=== PATIENT | female | born 1960 | race Caucasian/White ===

== ENCOUNTER → 2016-03-01 | Outpatient (CLI) | payer OTHER ==
--- NOTE | 2016-03-01 15:40 | NM ---
EXAMINATION TYPE: NM bone scan whole body, NM bone SPECT DATE OF EXAM: 03/01/2016 3:26 PM COMPARISON: NONE HISTORY: M54.5 low back pain Delayed whole-body scanning was performed following the injection of 27.4 mCi Tc 99m MDP. Images acq uired 3.5 hours post injection. On SPECT imaging was performed in the axial sagittal and coronal plan es. FINDINGS: There is intense uptake noted to involve the T9 vertebral segment which may reflect a compression fra cture. Underlying pathologic component is not excluded. Mild increased uptake is seen at the anterior -inferior endplate of L4 felt to reflect relatively recent compression fracture. There is also bilate ral focal uptake involving the pars interarticularis bilaterally suggesting bilateral spondylolysis. No additional areas of abnormal uptake seen. IMPRESSION: Increased uptake at 2 sites including T9 and L4 as well as bilateral L4 pars interarticularis uptake.
== END | disposition home or self-care (01) ==
LOC: RADNMMAIN 10:38
PROVIDERS: ATTEND Orthopaedic Surgery Orthopaedic Surgery of the Spine
DX: M51.16 Intervertebral disc disorders with radiculopathy, lumbar region (principal); M47.26 Other spondylosis with radiculopathy, lumbar region; M54.5 Low back pain
CPT/HCPCS: 78306; 78320; A9503

== ENCOUNTER → 2016-05-29 | Outpatient (CLI) | payer OTHER, MEDICARE ==
[2016-05-29 10:57] LABS: EKG EKG PERFORMED
[2016-05-29 11:53] LABS: Appearance,Urine Clear (Clear); Bilirubin,Urine Negative (Negative); Glucose,Urine (UA) Negative (Negative); Ketones,Urine Negative (Negative); Leukocyte Esterase,Urine Negative (Negative); Nitrite,Urine Negative (Negative); Protein,Urine Negative (Negative); Specific Gravity,Urine 1.002 (1.001-1.035); UA Billing (MACRO vs. MICRO) CHEM; Urobilinogen,Urine <2.0 mg/dL (<2.0)
[2016-05-29 12:00] LABS: Basophils # (A) 0.1 k/uL (0-0.2); Basophils % (A) 1 %; CH 29.1; CHCM 32.3; Eosinophils # (A) 0.6 k/uL (0-0.7); Eosinophils % (A) 8 %; HCT 46.5 % (34.0-46.0); HGB 15.2 gm/dL (11.4-16.0); Luc # (Auto) 0.17; Luc % (Auto) 3; Lymphocytes # (A) 2.1 k/uL (1.0-4.8); Lymphocytes % (A) 30 %; MCH 29.6 pg (25.0-35.0); MCHC 32.7 g/dL (31.0-37.0); MCV 90.5 fL (80.0-100.0); Mean Platelet Volume 6.8; Monocytes # (A) 0.3 k/uL (0-1.0); Monocytes % (A) 5 %; Neutrophils # (A) 3.7 k/uL (1.3-7.7); Neutrophils % (A) 53 %; RBC 5.14 m/uL (3.80-5.40); RDW 13.4 % (11.5-15.5); WBC 6.9 k/uL (3.8-10.6); WBC (Perox) 7.44
[2016-05-29 12:13] LABS: ALT 26 U/L (9-52); AST 22 U/L (14-36); Alkaline Phosphatase 86 U/L (38-126); Anion Gap 13 mmol/L; Blood Urea Nitrogen 14 mg/dL (7-17); Calcium 9.5 mg/dL (8.4-10.2); Carbon Dioxide 32 mmol/L (22-30); Chloride 100 mmol/L (98-107); Glucose 91 mg/dL (74-99); Non-African American GFR(MDRD) >60 (>60 ml/min/1.73 sqM); Potassium 3.8 mmol/L (3.5-5.1); Sodium 145 mmol/L (137-145); Total Bilirubin 0.7 mg/dL (0.2-1.3); Total Protein 8.1 g/dL (6.3-8.2)
--- NOTE | 2016-05-29 12:21 | XR ---
EXAMINATION TYPE: XR chest 2V DATE OF EXAM: 05/29/2016 11:25 AM COMPARISON: Chest x-ray August 02, 2015. HISTORY: Positive PPD skin test. TECHNIQUE: Frontal and lateral views of the chest are obtained. FINDINGS: Underlying emphysematous change is felt present. There is no focal air space opacity, pleu ral effusion, or pneumothorax seen. The cardiac silhouette size is within normal limits. The osseo us structures are intact. IMPRESSION: No acute cardiopulmonary process. No significant change from prior.
[2016-05-29 12:39] LABS: Partial Thromboplastin Time 25.3 sec (22.0-30.0)
== END | disposition home or self-care (01) ==
LOC: LABPAT 10:42
PROVIDERS: ATTEND Orthopaedic Surgery Orthopaedic Surgery of the Spine
DX: Z01.818 Encounter for other preprocedural examination (principal); R00.0 Tachycardia, unspecified; R94.31 Abnormal electrocardiogram [ECG] [EKG]; Z79.01 Long term (current) use of anticoagulants
CPT/HCPCS: 36415; 71020; 80053; 81003; 85025; 85610; 85730; 87070; 93005

== ENCOUNTER 2016-06-05 06:55 | Inpatient (IN) | payer OTHER ==
[2016-05-30 16:06] VITALS: BMI 29.7
[~2016-06-05 06:55] MED LIST: BACITRACIN 50,000 UNIT, POLYMYXIN B 500,000 UNIT in SODIUM CHLORIDE 0.9% IRRIGATIO 1,00... IRRIGATION ONE; DEXAMETHASONE SOD PHOSPHATE 10 MG/ML 1 ML VIAL IV ONE; HYDROmorphone 1 MG/ML 1 ML SYRINGE IVP PRN; LIDOCAINE 1% 20 ML VIAL (10MG/ML) FOR IV START INTRADERMA PRN; MIDAZOLAM 2 MG/2 ML VIAL IV PRN; ONDANSETRON 4 MG/2 ML VIAL IVP ONE; Pre Op ABX Message 1 EACH MISC MISCELLANE ONE; SCOPOLAMINE 1.5MG/72HR PATCH TRANSDERM ONE
[2016-06-05] MEDS: LACTATED RINGERS 1,000 ML IV SCH (07:24)
[2016-06-05] MEDS ORDERED: HYDROmorphone (PF) 1 MG/ML ONE (08:38)
[2016-06-05] MEDS ORDERED: SUCCINYLCHOLINE CHLORIDE 100 MG/5 ML SYR IV ONE (08:38)
[2016-06-05] MEDS ORDERED: THROMBIN (BOVINE) 5,000 UNIT VIAL TOPICAL ONE (08:38)
[2016-06-05] MEDS ORDERED: MIDAZOLAM 2 MG/2 ML VIAL ONE (08:38)
[2016-06-05] MEDS ORDERED: LIDOCAINE 0.5%-EPI 1:200,000 50 ML VIAL SQ ONE ×2 (08:38)
[2016-06-05] MEDS ORDERED: PHENYLEPHRINE-0.9% NACL SYG 1 MG/10 ML SYRINGE ONE (08:38)
[2016-06-05] MEDS ORDERED: PROPOFOL 10 MG/ML 20 ML VIAL IV ONE (08:38)
[2016-06-05] MEDS ORDERED: LIDOCAINE 1% INJ 10MG/ML (20 ML MDV) ONE (08:38)
[2016-06-05] MEDS ORDERED: fentaNYL (PF) 50 MCG/ML 2 ML AMP ONE (08:38)
[2016-06-05] MEDS ORDERED: GELATIN SPONGE,ABSORB (LARGE) 1 EACH SPONGE TOPICAL ONE (08:38)
[2016-06-05] MEDS ORDERED: SODIUM CHLORIDE 0.9% 100 ML with CLINDAMYCIN 600 MG IV ONE ×2 (08:55)
[2016-06-05] MEDS ORDERED: BUPIVACAINE LIPOSOME/PF 1.3% 20 ML, BUPIVACAIN-EPI 0.5%-1:200,000 25 ML, SODIUM CHLORID... MISCELLANE ONE ×3 (09:37)
[2016-06-05] MEDS ORDERED: LACTATED RINGERS 1,000 ML IV ONE ×3 (10:01→11:29)
[2016-06-05] MEDS ORDERED: ONDANSETRON 4 MG/2 ML VIAL IVP PRN (12:08)
[2016-06-05] MEDS ORDERED: HYDROmorphone 1 MG/ML 1 ML SYRINGE IVP PRN ×2 (12:08)
[2016-06-05] MEDS ORDERED: BENZOCAINE/MENTHOL LOZENG 1 EACH LOZENGE MUCOUS MEM PRN (12:08)
[2016-06-05] MEDS ORDERED: DIAZEPAM 5 MG TAB PO PRN (12:08)
[2016-06-05] MEDS ORDERED: HYDROcodone/APAP 5-325MG 1 EACH TAB PO PRN (12:08)
--- NOTE | 2016-06-05 12:13 | FL ---
Fluoroscopy History: Lumbar laminectomy lumbar laminectomy 2:30 min fluoro time For paper images are submitted which demonstrate changes of lumbar laminectomy at L4-5. Pedicular scr ews are in place. Intervertebral body spacer is noted.
--- NOTE | 2016-06-05 12:16 | P.OP ---
Date of Procedure: 06/05/16 Preoperative Diagnosis: Spondylolisthesis L4 5, spinal stenosis L4 5, lower extremity radiculopathy Postoperative Diagnosis: Same Anesthesia: GETA Pathology: none sent Condition: stable Disposition: PACU Description of Procedure: DESCRIPTION OF PROCEDURE(S): BRIEF OPERATIVE NOTE Preoperative Diagnosis: Spinal stenosis L4 5, spondylolisthesis L4 5, radiculopathy Postoperative Diagnosis: Same Procedure: Laminectomy and decompression with foraminotomy and facetectomy minimally invasive L4 5 Minimally invasive Posterior lateral decompression and fusion L4 5 Minimally invasive Transforaminal lumbar interbody fusion for a 360 fusion L4 5 Discectomy for decompression L4 5 Placement of interbody graft L4 5 Bone marrow aspiration through a separate fascial incision from the left iliac crest with the bone marrow aspirate device Local autogenous bone grafting Use of bone graft extenders Surgeon: Dr. Laura Tool And Machine Maintainer: Stephen Conroy is present throughout the entire the case persistence during positioning, dissection, exposure, visualization, and all crucial elements of the case as well as closure. Anesthesia: General anesthesia Estimated blood loss: Approximately 200 mL Complications: None apparent Components implanted: K2M minimally invasive [place] screw system with 4 screws measuring 6.5 x 45, 2 rods one [place] interbody cage and 1 osteal amp cancellus bone sponge and 10 mL cancellus osteal amp to supplemental local autogenous bone graft and autogenous bone marrow aspirate Disposition: To recovery room in good stable condition. OPERATIVE INDICATIONS The patient has had long-standing issues in their lower back and lower extremities. The patient has been through conservative treatment. She is found have spondylolisthesis and stenosis at L4 5 which correlated well with her symptoms. She is not having any significant benefit despite aggressive conservative care. Her symptoms were coming debilitating for her. We discussed various treatment options including surgery, and the patient wishes to proceed with surgery We discussed the risk, patient's alternatives and benefits of surgery including but not limited to, risk of bleeding risk of infection, risk of need for further surgery, risk of decreased, loss of motion, muscle function, malunion nonunion, hardware failure, nerve damage, paralysis, heart attack, blindness and . OPERATIVE SUMMARY After discussing all the risks, patient alternatives and benefits at length, the patient elected to proceed with surgical intervention, signed informed consent, and presented for their procedure. The patient was seen and examined in the preoperative holding area and the surgical site was marked. The patient was given antibiotics and brought to the operating room. The patient was sedated and intubated by anesthesia in standard fashion. The patient was positioned on to the operating room table in a prone position on the appropriate frame which was well-padded and well molded. We were careful to pad any bony prominences and pressure points. We were careful to maintain the patient's cervical spine and good neutral alignment and position throughout. The patient was prepped and draped in a normal standard fashion. An appropriate timeout and keystone protocol performed. We were able to proceed with the surgery. The local wound area was infiltrated with local anesthetic. I was able utilize C-arm guidance to establish appropriate position over the pedicles bilaterally at the appropriate levels at L4 5. With the appropriate levels confirmed was able to make small stab incisions over the appropriate pedicle sites bilaterally. Utilizing C-arm in his house able to establish a Jamshidi needle over the lateral aspect of the pedicle and advanced the trocar into the pedicle being careful not to breech superiorly inferiorly medially or laterally. Position was confirmed regularly with AP and lateral images on C- arm. I was able to establish the trocar into the pedicle appropriately into the posterior aspect of the vertebral body bilaterally at the appropriate levels. This was done at each of the pedicle positions and each of the vertebrae. I was able place the guidewire into the trocar and into the vertebral body appropriately under C-arm guidance. Dissection was taken down over the wire to the appropriate starting position for the screw placed. The appropriate length screw was chosen, threaded over the guidewire and screwed appropriately into the pedicle and vertebral body under C-arm guidance in excellent alignment and position with good bony purchase. This is done at each of the screw sites at the appropriate levels at L4 and 5 bilaterally. At the left iliac crest through a separate fascial incision I Lacy bone marrow aspirate device and performed a bone marrow aspirate to be used over the osteal amp cancellus sponge and granules. With the screws intact I extended the incision to connect the screw hole sites on the most symptomatic side on the left at L4 5. I dissected down to establish access over the pars and lamina to the base of the spinous process. I was able to expose the facet joint. The capsule the facet was taken down and showed some facet arthrosis at the joint. I was able to use a combination of curettes and Kerrison rongeurs and a high-speed drill to take down the facet joint and do a facetectomy. Partial laminectomy was also performed. I was able get excellent foraminal decompression and central decompression with undermining across midline to perform a laminectomy centrally and contralaterally. As able get good central decompression. The ligamentum flavum was taken down to further decompress centrally and at bilateral neural foramen. I was able to expose the disc space and visualize the traversing nerve root. No was made of some disc protrusion at the level causing further compression of the nerve root. I was able to establish a annulotomy at the appropriate level protecting soft tissue and neural structures. No was made of some disc desiccation at the disc. I performed a complete discectomy with accommodation of curettes and rasps and scrapers. I was able get good endplate preparation at the disc space. I sized for the appropriate size interbody spacer protecting the soft tissue and neural structures. The wound was copiously irrigated and suctioned dry. There is no evidence of any dural tear or leak. I was able to pack the disc space with local autogenous bone graft as well as a small amount of infuse which was also placed into the interbody cage itself. Protecting the soft tissue structures and neural structures I was able place the interbody cage in good alignment and good position with good fit and fill at the interbody space. His issues was confirmed with C-arm guidance. Good hemostasis maintained. There is no evidence of any dural tear or leak. The wound was irrigated and suctioned dry. With the hardware intact, intraoperative C-arm imaging was again taken which showed good alignment and position of the hardware at the appropriate levels at L4-L5. We were then able to measure, contour and place the rods and appropriate hardware bilaterally. I was able to place capcrews, tighten them down, and shear them off appropriately. The sheared portion was counted and accounted for. With this intact I was able to place the local autogenous bone graft with additional bone graft enhancer as necessary into the posterior lateral gutters over the decorticated facets at L4 5. The remainder of the infuse was placed over the facet joint on the contralateral side after taking down the facet joint capsule. With the bone graft intact, a stable construct, and good decompression at the appropriate levels, we were able to proceed with closure. Good hemostasis was maintained. There is no evidence of dural tear or leak. The fascia was closed for a watertight closure. he subcuticular tissue was closed with absorbable suture. The wound was cleaned and dried and dressed with the appropriate dressing. The drapes were broken down. The patient was gently rolled back onto their hospital bed being careful to maintain their cervical spine and good neutral alignment and position. They were woken up by anesthesia, extubated, and brought to the recovery room in good stable condition. The patient will be admitted to the hospital for appropriate postoperative care , medical management and monitoring. We will continue to follow them closely about the postoperative course.
[2016-06-05] MEDS ORDERED: ALBUTEROL NEBULIZED 2.5 MG/3 ML INHALATION PRN (12:30)
[2016-06-05] MEDS ORDERED: ALPRAZolam 0.5 MG TAB PO PRN (14:31)
[2016-06-05] MEDS: HYDROcodone/APAP 5-325MG 1 EACH TAB PO PRN ×2 (14:38→19:31)
--- NOTE | 2016-06-05 14:48 | P.HPIM ---
History of Present Illness H&P Date: 06/05/16 56-year-old female postoperative from laminectomy and decompression L4 [address] Laura[address] Patient has history of iron deficiency anemia asthma stable GERD has Blanca procedure hypothyroidism hyperparathyroidism patient resting in bed right now pain free nurse called regarding hypotension has corrected with fluid Review of Systems Musculoskeletal: Reports low back pain Past Medical History Past Medical History: COPD, Osteoarthritis (OA), Thyroid Disorder Additional Past Medical History / Comment(s): SPINAL STENOSIS. IODINE TX TO THYROID. History of Any Multi-Drug Resistant Organisms: None Reported Past Surgical History: Hysterectomy, Joint Replacement, Orthopedic Surgery Additional Past Surgical History / Comment(s): Sinus Surgery. LT Hip Replacement, Bilat Knee Relacement. Partial Hyst. Past Anesthesia/Blood Transfusion Reactions: No Reported Reaction, Motion Sickness Past Psychological History: ADD/ADHD, Anxiety, Depression Smoking Status: Former smoker Past Alcohol Use History: Rare Additional Past Alcohol Use History / Comment(s): SMOKED 10 YEARS, 1/2 PPD, QUIT 7 WKS AGO Past Drug Use History: None Reported - Past Family History Father Family Medical History: Cancer Mother Family Medical History: No Reported History Medications and Allergies Home Medications Medication Instructions Recorded Confirmed Type Cholecalciferol [Vitamin D3] 1,000 unit PO DAILY 09/29/13 06/05/16 History Furosemide [Furosemide] 40 mg PO DAILY 09/29/13 06/05/16 History Levocetirizine Dihydrochloride 5 mg PO DAILY 09/29/13 06/05/16 History [Xyzal] Multivitamins, Thera [Multivitamin] 1 tab PO DAILY 09/29/13 06/05/16 History Potassium Chloride [Klor-Con M10] 10 meq PO DAILY 09/29/13 06/05/16 History ALPRAZolam [Xanax] 0.5 mg PO DAILY PRN 10/03/13 06/05/16 History DULoxetine HCL [Cymbalta] 60 mg PO BID 09/12/14 06/05/16 History Fluticasone/Salmeterol [Advair 2 puff INHALATION RT-DAILY 09/12/14 06/05/16 History 250-50 Diskus] Mometasone Furoate [Nasonex Nasal 2 spr EA NOSTRIL DAILY 09/12/14 06/05/16 History [place]] Montelukast Sodium [Singulair] 10 mg PO HS 09/12/14 06/05/16 History Albuterol Sulfate [Proair Hfa] 1 - 2 puff INHALATION RT-Q6H PRN 11/25/14 History Estradiol [Estrace] 1 mg PO DAILY 12/16/14 06/05/16 History Levothyroxine Sodium [Tirosint] 150 mcg PO DAILY 12/19/14 06/05/16 History Dextroamphetamine/Amphetamine 30 mg PO BID 01/02/16 06/05/16 History [Adderall Xr] Gabapentin [Neurontin] 300 mg PO HS 01/02/16 06/05/16 History HYDROcodone/APAP 7.5-325MG [[place] 1 tab PO DAILY PRN 01/02/16 06/05/16 History 7.5-325] rOPINIRole HCL [Requip] 2 mg PO HS 01/02/16 06/05/16 History Cyclobenzaprine [Flexeril] 10 mg PO TID 05/30/16 06/05/16 History buPROPion [Wellbutrin] 100 mg PO BID 05/30/16 06/05/16 History Allergies Allergy/AdvReac Type Severity Reaction Status Date / Time peanut Allergy Severe Anaphylaxis Verified 05/30/16 15:36 NSAIDS (Non-Steroidal Allergy Unknown Nausea & Verified 01/04/16 12:50 Anti-Inflamma Vomiting, Lightheaded., Has samters Triad. aspirin Allergy Has Verified 01/04/16 12:50 Samters Triad, Nausea & Vomiting cephalexin monohydrate Allergy Rash/Hives Verified 01/04/16 12:50 [From Keflex] ibuprofen Allergy Nausea & Verified 01/04/16 12:50 Vomiting, Lightheaded., Has Samters Triad. propoxyphene napsylate Allergy Nausea & Verified 01/04/16 12:50 [From Darvocet-N 100] Vomiting yeast Allergy Severe Anaphylaxis Uncoded 05/30/16 15:36 Physical Exam Vitals: Vital Signs Temp Pulse Pulse Resp BP BP Pulse Ox 06/05/16 13:15 95 16 106/64 99 06/05/16 13:00 95 16 114/68 98 06/05/16 12:45 92 18 101/63 97 06/05/16 12:30 87 16 96/54 100 06/05/16 12:24 98.4 F 92 16 108/57 97 06/05/16 07:16 98.9 F 86 16 126/61 94 L Intake and Output 06/04/16 06/05/16 06/05/16 22:59 06:59 14:59 Intake Total 2806 Output Total 350 Balance 2456 Intake: IV 2806 Sodium Chloride 0.9% 1, 200 000 ml @ 75 mls/hr IV . [id number] [facility] Rx#:[id number] Output: Urine 150 Estimated Blood Loss 200 Other: Weight 86.183 kg Patient Weight 06/06/16 06:59 Weight 86.183 kg - Constitutional General appearance: average body habitus - EENT Eyes: PERRLA Ears: bilateral: normal - Neck Neck: normal ROM - Respiratory Respiratory: bilateral: CTA - Cardiovascular Rhythm: regular - Gastrointestinal General gastrointestinal: soft - Integumentary Integumentary: normal - Neurologic Neurologic: CNII-XII intact - Psychiatric Psychiatric: A&O x's 3, appropriate affect, intact judgment & insight Thrombosis Risk Factor Assmnt - Choose All That Apply Each Factor Represents 1 point: Abnormal pulmonary function (COPD), Age 41-60 years, Obesity (BMI >25), Oral contraceptives or hormone replacement therapy Each Risk Factor Represents 2 Points: Major surgery Each Risk Factor Represents 5 Points: Major surgery lasting over 3 hours Thrombosis Risk Factor Assessment Total Risk Factor Score: 11 Thrombosis Risk Factor Assessment Level: High Risk Assessment and Plan Plan: Assessment Spinal stenosis L4 5 post laminectomy and decompression of L4 5 History of iron deficiency anemia Asthma/COPD stable GERD history of a Blanca procedure Hypothyroidism Hyperparathyroidism Plan We'll monitor patient condition home medications ordered
[2016-06-05] MEDS: CYCLOBENZAPRINE 10 MG TAB PO SCH ×2 (15:53→20:34)
[2016-06-05] MEDS: CLINDAMYCIN 900 MG in DEXTROSE 5% IN WATER 50 ML IVPB SCH ×2 (17:11)
[2016-06-05] MEDS: DULoxetine HCL 60 MG CAPSULE.DR PO SCH (20:35)
[2016-06-05] MEDS: buPROPion 100 MG TAB PO SCH (20:35)
[2016-06-05] MEDS: GABAPENTIN 300 MG CAP PO SCH (20:35)
[2016-06-05] MEDS: MONTELUKAST 10 MG TAB PO SCH (20:35)
[2016-06-05] MEDS: SODIUM CHLORIDE 0.9% 1,000 ML IV SCH (20:36)
[2016-06-05] MEDS ORDERED: NON-FORMULARY DRUG (Dextroamphetamine/Amphetamine [Adderall Xr] 30 MG) PO SCH (21:00)
[2016-06-05] MEDS: PROAIR HFA (ALBUTEROL SULFATE) INHALATION PRN (22:25)
[2016-06-06] MEDS: CLINDAMYCIN 900 MG in DEXTROSE 5% IN WATER 50 ML IVPB SCH ×2 (00:09)
[2016-06-06] MEDS: SODIUM CHLORIDE 0.9% 1,000 ML IV SCH ×4 (00:13→21:02)
[2016-06-06] MEDS: HYDROcodone/APAP 5-325MG 1 EACH TAB PO PRN ×5 (02:22→18:38)
[2016-06-06] MEDS: PROAIR HFA (ALBUTEROL SULFATE) INHALATION PRN (02:23)
[2016-06-06] MEDS: TIROSINT 150 MCG PO SCH (05:20)
[2016-06-06] MEDS ORDERED: LEVOTHYROXINE 75 MCG TAB PO SCH (06:30)
[2016-06-06 07:40] LABS: Anion Gap 5 mmol/L; Blood Urea Nitrogen 7 mg/dL (7-17); Calcium 7.9 mg/dL (8.4-10.2); Carbon Dioxide 24 mmol/L (22-30); Chloride 108 mmol/L (98-107); Glucose 100 mg/dL (74-99); Non-African American GFR(MDRD) >60 (>60 ml/min/1.73 sqM); Sodium 137 mmol/L (137-145)
[2016-06-06 07:45] LABS: Basophils % (A) 0 %; CH 29.2; CHCM 32.7; Eosinophils # (A) 0.2 k/uL (0-0.7); Eosinophils % (A) 2 %; HCT 34.7 % (34.0-46.0); HDW 2.43; Luc # (Auto) 0.23; Luc % (Auto) 3; Lymphocytes # (A) 1.5 k/uL (1.0-4.8); Lymphocytes % (A) 19 %; MCH 29.9 pg (25.0-35.0); MCHC 33.3 g/dL (31.0-37.0); MCV 89.9 fL (80.0-100.0); Mean Platelet Volume 6.5; Monocytes # (A) 0.4 k/uL (0-1.0); Monocytes % (A) 6 %; Neutrophils # (A) 5.4 k/uL (1.3-7.7); Neutrophils % (A) 70 %; RBC 3.86 m/uL (3.80-5.40); RDW 13.2 % (11.5-15.5); WBC 7.8 k/uL (3.8-10.6); WBC (Perox) 8.64
[2016-06-06 07:56] LABS: HGB 11.6 gm/dL (11.4-16.0)
[2016-06-06] MEDS ORDERED: SYMBICORT 80-4.5 MCG INHALER INHALATION SCH (08:00)
[2016-06-06] MEDS ORDERED: ADVAIR INHALATION SCH (08:00)
[2016-06-06] MEDS: LACTATED RINGERS 1,000 ML IV SCH (08:25)
[2016-06-06] MEDS: DULoxetine HCL 60 MG CAPSULE.DR PO SCH ×2 (08:53→22:37)
[2016-06-06] MEDS: ESTRADIOL 1 MG TAB PO SCH (08:53)
[2016-06-06] MEDS: POTASSIUM CHLORIDE ER 10 MEQ TAB.ER.PRT PO SCH (08:53)
[2016-06-06] MEDS: CHOLECALCIFEROL 1,000 UNIT TAB PO SCH (08:53)
[2016-06-06] MEDS: buPROPion 100 MG TAB PO SCH ×2 (08:53→22:37)
[2016-06-06] MEDS: CYCLOBENZAPRINE 10 MG TAB PO SCH ×3 (08:53→22:36)
[2016-06-06] MEDS: FUROSEMIDE 40 MG TAB PO SCH (08:54)
[2016-06-06] MEDS: LORATADINE 10 MG TAB PO SCH (08:54)
[2016-06-06] MEDS: ADVAIR INHALATION SCH (09:58)
[2016-06-06] MEDS: FLUTICASONE 50MCG/SPRAY NASAL 16GM EA NOSTRIL SCH (10:41)
[2016-06-06] MEDS ORDERED: ALBUTEROL NEBULIZED 2.5 MG/3 ML INHALATION PRN (11:50)
--- NOTE | 2016-06-06 11:55 | P.PN ---
Subjective Patient sitting at bedside in chair states pain controlled. Requesting albuterol per nebulizer as then at home 4 times a day when necessary Objective - Vital Signs Vital signs: Vital Signs Temp 99.0 F 06/06/16 08:08 Pulse 94 06/06/16 08:08 Resp 16 06/06/16 08:08 BP 100/53 06/06/16 08:08 Pulse Ox 95 06/06/16 08:08 Intake & Output 06/05/16 06/06/16 06/06/16 18:59 06:59 18:59 Intake Total 2806 1750 Output Total 500 1700 Balance 2306 1750 -1700 Weight 86.183 kg Intake: IV 2806 1500 Sodium Chloride 0.9% 1, 200 1500 000 ml @ 125 mls/hr IV . Q8H [facility] Rx#:[id number] Oral 250 Output: Urine 300 1700 Uretheral (Fuentes) 1700 Estimated Blood Loss 200 Other: Voiding Method Indwelling Catheter Indwelling Catheter Indwelling Catheter - Constitutional General appearance: Present: mild distress - EENT Eyes: Present: PERRLA Ears: bilateral: normal - Neck Neck: Present: normal ROM - Respiratory Respiratory: bilateral: CTA - Cardiovascular Rhythm: regular - Gastrointestinal General gastrointestinal: Present: soft - Integumentary Integumentary: Present: normal - Neurologic Neurologic: Present: CNII-XII intact - Psychiatric Psychiatric: Present: A&O x's 3, appropriate affect, intact judgment & insight - Labs CBC & Chem 7: 06/06/16 07:07 06/06/16 07:07 Labs: Abnormal Lab Results - Last 24 Hours (Table) 06/06/16 Range/Units 07:07 Chloride 108 H (98-107) mmol/L Glucose 100 H (74-99) mg/dL Calcium 7.9 L (8.4-10.2) mg/dL Assessment and Plan Plan: Assessment Spinal stenosis L4-L5 with radiculopathy post laminectomy decompression L4 5 History of iron deficiency anemia Asthma/COPD GERD Hypothyroidism Hyperparathyroidism Plan Continue to monitor patient albuterol updrafts ordered when necessary
[2016-06-06] MEDS: MULTIVITAMINS, THERA 1 EACH TAB PO SCH (13:21)
[2016-06-06] MEDS ORDERED: MENTHOL (NICE) LOZENGE MUCOUS MEM PRN (19:57)
[2016-06-06] MEDS: MONTELUKAST 10 MG TAB PO SCH (22:37)
[2016-06-06] MEDS: GABAPENTIN 300 MG CAP PO SCH (23:16)
[2016-06-07] MEDS: HYDROcodone/APAP 5-325MG 1 EACH TAB PO PRN ×3 (02:00→12:37)
[2016-06-07] MEDS: SODIUM CHLORIDE 0.9% 1,000 ML IV SCH (04:18)
[2016-06-07] MEDS: LACTATED RINGERS 1,000 ML IV SCH (05:13)
[2016-06-07] MEDS: TIROSINT 150 MCG PO SCH ×2 (06:02→07:42)
[2016-06-07] MEDS: FLUTICASONE 50MCG/SPRAY NASAL 16GM EA NOSTRIL SCH (07:42)
[2016-06-07] MEDS: FUROSEMIDE 40 MG TAB PO SCH (07:43)
[2016-06-07] MEDS: DULoxetine HCL 60 MG CAPSULE.DR PO SCH (07:43)
[2016-06-07] MEDS: POTASSIUM CHLORIDE ER 10 MEQ TAB.ER.PRT PO SCH (07:43)
[2016-06-07] MEDS: CHOLECALCIFEROL 1,000 UNIT TAB PO SCH (07:44)
[2016-06-07] MEDS: LORATADINE 10 MG TAB PO SCH (07:44)
[2016-06-07] MEDS: CYCLOBENZAPRINE 10 MG TAB PO SCH ×2 (07:44→16:12)
[2016-06-07] MEDS: buPROPion 100 MG TAB PO SCH (07:45)
[2016-06-07] MEDS: ESTRADIOL 1 MG TAB PO SCH (07:45)
[2016-06-07 07:55] VITALS: PULSE 90
[2016-06-07] MEDS: ADVAIR INHALATION SCH (11:53)
[2016-06-07] MEDS: MULTIVITAMINS, THERA 1 EACH TAB PO SCH (12:59)
--- NOTE | 2016-06-07 13:27 | P.DS ---
Providers Date of admission: 06/05/16 06:55 Expected date of discharge: 06/07/16 Attending physician: Neena Laura Consults: 06/05/16 12:08 Consult Physician Routine Consulting Provider: Layton Fung Consult Reason/Comments: Medical management Do you want consulting provider notified?: Yes Primary care physician: Stated None - Discharge Diagnosis(es) (1) Lumbar spinal stenosis Current Visit: Yes Status: Acute (2) Spondylolisthesis, lumbar region Current Visit: Yes Status: Acute (3) Radiculopathy with lower extremity symptoms Current Visit: Yes Status: Acute (4) Arthrodesis status Current Visit: Yes Status: Acute Hospital Course: This is a pleasant 56-year-old female who presented with L4-5 spondylolisthesis and spinal stenosis with lower extremity radiculopathy who failed outpatient conservative therapy. She was admitted for a minimally invasive posterior lateral decompression and fusion with transforaminal lumbar interbody fusion at L4-5. The patient tolerated the procedure well and did well postoperatively. She states she has been able to ambulate the hallways and to the bathroom without significant difficulty. She states her pain at the surgical sites have been well-controlled. She states she has some discomfort there, but no significant pain. She states while getting in and out of bed she does experience sharp pains in the bilateral buttocks and anterior thighs. She is not experiencing these pains pains while ambulating. She states she is ready for discharge home today. Condition on day of discharge stable. Patient was cleared preoperatively for surgery by Dr. Layton Fung. Patient currently denies any nausea, vomiting, fever, or chills. Patient is eating and voiding freely without difficulty. Patient may shower Tegaderm dressings intact. Patient may remove Tegaderm dressings in 3 days and shower without a dressing at that time. Patient should refrain from driving until at least after their first follow-up appointment in the office. Patient should avoid excessive bending, lifting, and twisting; no lifting greater than 10 pounds. She'll be given a prescription for [place] 7.5 mg/325 mg 1 tab every 6 hours as needed for pain, dispensed 90 (Ninety). Should avoid anti-inflammatories over the next 6 weeks. She may resume all other home medications as prescribed. Physical Exam on day of discharge: Patient is awake, alert, and oriented 3 Vital signs stable Good chest excursion with deep inspiration and expiration Abdomen soft nontender No signs or symptoms of DVT; no calf pain Extensor hallucis longus, plantarflexion, and dorsiflexion positive sustained bilateral lower extremities Dressings are removed during physical examination Incisions are clean, dry, and intact; no active drainage or obvious signs of infection Nonstick Telfa and Tegaderm reapplied to the 2 incision sites Patient is able to change positions in bed without significant difficulty Procedures: Minimally invasive posterior lateral decompression and fusion with transfer lumbar interbody fusion L4-5 Patient Condition at Discharge: Stable Plan - Discharge Summary New Discharge Prescriptions: HYDROcodone/APAP 7.5-325MG [[place] 7.5-325] 1 each PO Q6HR PRN #90 tab PRN Reason: Pain Discharge Medication List Cholecalciferol [Vitamin D3] 1,000 unit PO DAILY 09/29/13 [History] Furosemide [Furosemide] 40 mg PO DAILY 09/29/13 [History] Levocetirizine Dihydrochloride [Xyzal] 5 mg PO DAILY 09/29/13 [History] Multivitamins, Thera [Multivitamin] 1 tab PO DAILY 09/29/13 [History] Potassium Chloride [Klor-Con M10] 10 meq PO DAILY 09/29/13 [History] ALPRAZolam [Xanax] 0.5 mg PO DAILY PRN 10/03/13 [History] DULoxetine HCL [Cymbalta] 60 mg PO BID 09/12/14 [History] Fluticasone/Salmeterol [Advair 250-50 Diskus] 2 puff INHALATION RT-DAILY [History] Mometasone Furoate [Nasonex Nasal [place]] 2 spr EA NOSTRIL DAILY 09/12/14 [ History] Montelukast Sodium [Singulair] 10 mg PO HS 09/12/14 [History] Albuterol Sulfate [Proair Hfa] 1 - 2 puff INHALATION RT-Q6H PRN 11/25/14 [ History] Estradiol [Estrace] 1 mg PO DAILY 12/16/14 [History] Levothyroxine Sodium [Tirosint] 150 mcg PO DAILY 12/19/14 [History] Dextroamphetamine/Amphetamine [Adderall Xr] 30 mg PO BID 01/02/16 [History] Gabapentin [Neurontin] 300 mg PO HS 01/02/16 [History] HYDROcodone/APAP 7.5-325MG [[place] 7.5-325] 1 tab PO DAILY PRN 01/02/16 [History] rOPINIRole HCL [Requip] 2 mg PO HS 01/02/16 [History] Cyclobenzaprine [Flexeril] 10 mg PO TID 05/30/16 [History] buPROPion [Wellbutrin] 100 mg PO BID 05/30/16 [History] HYDROcodone/APAP 7.5-325MG [[place] 7.5-325] 1 each PO Q6HR PRN #90 tab 06/07/16 [ Rx] Follow up Appointment(s)/Referral(s): Stephen San, PARI [PHYSICIAN WASH OIL PUMP OPERATOR HELPER] - 2 Weeks (Patient may follow-up with Stephen San PA-C or Dr. Joni Laura at [facility] in 2-3 weeks following discharge. ) Activity/Diet/Wound Care/Special Instructions: 1. Patient may shower Tegaderm dressing intact. 2. Patient may remove Tegaderm dressing in 3 days and shower without a dressing at that time. 3. Patient should refrain from driving until at least after their first follow- up appointment in the office. 4. Patient should avoid excessive bending, twisting, and lifting; no lifting greater than 10 pounds 5. Do not soak in tub Discharge Disposition: HOME SELF-CARE
[2016-06-07 15:55] VITALS: BP 119/78; RESP 17; TEMP 97.9
--- NOTE | 2016-06-07 17:53 | PN ---
DATE OF SERVICE: 06/07/2016 I am covering for Dr. Layton Fung. This 56-year-old woman who was admitted after spinal stenosis surgery is improving significantly. No chest pain. No palpitation. No fever. On exam, alert and oriented x3. Pulse 90, blood pressure 99/57, respiration 16, temperature 96.9, pulse ox 94% on room air. HEENT: Conjunctivae normal. NECK: No jugular venous distention. CARDIOVASCULAR SYSTEM: S1, S2 muffled. RESPIRATORY SYSTEM: Breath sounds diminished at the bases. A few rhonchi in the bases. ABDOMEN: Soft, nontender. LEGS: No edema. No swelling. EXAMINATION OF BACK: Status post surgery. LABS: Calcium 7.9. ASSESSMENT: 1. Spinal stenosis, L4-5 with radiculopathy, post laminectomy and decompression, L4-5. 2. Chronic obstructive pulmonary disease, asthma. 3. History of iron deficiency anemia. 4. History of gastroesophageal reflux disease. 5. Hypothyroidism. 6. Hyperparathyroidism. RECOMMENDATIONS AND DISCUSSION: I recommend to continue with the current medications, continue with symptomatic treatment, continue with bronchodilators, incentive spirometry. Closely follow with Dr. Fung in the outpatient setting. Rest of the recommendations per Orthopedic Surgery. Further recommendations to follow.
== END 2016-06-07 17:20 | disposition home or self-care (01) | DRG 460 ==
LOC: 2ORMAIN 06:55 → 3SUR 12:15
PROVIDERS: ADMIT Orthopaedic Surgery Orthopaedic Surgery of the Spine; ATTEND Orthopaedic Surgery Orthopaedic Surgery of the Spine
PROC: 0ST20ZZ Resection of Lumbar Vertebral Disc, Open Approach (ICD-10-PCS; 2016-06-05)
PROC: 07DR3ZZ Extraction of Iliac Bone Marrow, Percutaneous Approach (ICD-10-PCS; 2016-06-05)
PROC: 0SG00A1 (ICD-10-PCS; principal; 2016-06-05 14:00)
DX: M48.06 Spinal stenosis, lumbar region (principal); I95.9 Hypotension, unspecified; F32.9 Major depressive disorder, single episode, unspecified; E03.9 Hypothyroidism, unspecified; M43.16 Spondylolisthesis, lumbar region; E21.3 Hyperparathyroidism, unspecified; F41.9 Anxiety disorder, unspecified; F90.9 Attention-deficit hyperactivity disorder, unspecified type; J44.9 Chronic obstructive pulmonary disease, unspecified; J45.909 Unspecified asthma, uncomplicated; K21.9 Gastro-esophageal reflux disease without esophagitis; M19.90 Unspecified osteoarthritis, unspecified site; M51.16 Intervertebral disc disorders with radiculopathy, lumbar region; G47.30 Sleep apnea, unspecified; Z79.899 Other long term (current) drug therapy; Z87.891 Personal history of nicotine dependence; Z96.642 Presence of left artificial hip joint; Z96.653 Presence of artificial knee joint, bilateral; Z88.6 Allergy status to analgesic agent; Z88.1 Allergy status to other antibiotic agents; Z88.5 Allergy status to narcotic agent
CPT/HCPCS: 72100; 80048; 85025; 86850; 86900; 86901; 94640

== ENCOUNTER → 2017-07-10 | Outpatient (CLI) | payer OTHER, MEDICARE ==
[2017-07-10 08:26] LABS: HGB 15.5 gm/dL (11.4-16.0); MCH 29.3 pg (25.0-35.0); MCV 88.8 fL (80.0-100.0); Mean Platelet Volume 7.1; Platelet Count 334 k/uL (150-450); RBC 5.29 m/uL (3.80-5.40); RDW 13.7 % (11.5-15.5)
[2017-07-10 08:37] LABS: Anion Gap 19 mmol/L; Blood Urea Nitrogen 19 mg/dL (7-17); Calcium 9.8 mg/dL (8.4-10.2); Carbon Dioxide 25 mmol/L (22-30); Chloride 99 mmol/L (98-107); Glucose 104 mg/dL (74-99); Sodium 143 mmol/L (137-145)
== END | disposition home or self-care (01) ==
LOC: LABWHC1 07:52
PROVIDERS: ATTEND Internal Medicine Clinical Cardiac Electrophysiology
DX: I47.1 Supraventricular tachycardia (principal)
CPT/HCPCS: 36415; 80048; 85027

== ENCOUNTER → 2017-07-16 | Outpatient (CLI) | payer OTHER, MEDICARE ==
[2017-07-16 07:34] LABS: Basophils # (A) 0.1 k/uL (0-0.2); Basophils % (A) 2 %; Eosinophils # (A) 0.6 k/uL (0-0.7); Eosinophils % (A) 8 %; HCT 42.6 % (34.0-46.0); HGB 13.9 gm/dL (11.4-16.0); Lymphocytes # (A) 2.8 k/uL (1.0-4.8); Lymphocytes % (A) 38 %; MCH 29.6 pg (25.0-35.0); MCHC 32.7 g/dL (31.0-37.0); MCV 90.7 fL (80.0-100.0); Mean Platelet Volume 6.7; Monocytes # (A) 0.4 k/uL (0-1.0); Monocytes % (A) 5 %; Neutrophils # (A) 3.2 k/uL (1.3-7.7); Neutrophils % (A) 44 %; Platelet Count 299 k/uL (150-450); RBC 4.69 m/uL (3.80-5.40); RDW 13.5 % (11.5-15.5); WBC 7.3 k/uL (3.8-10.6)
[2017-07-16 08:52] LABS: ALT 24 U/L (9-52); AST 17 U/L (14-36); Albumin 3.7 g/dL (3.5-5.0); Alkaline Phosphatase 54 U/L (38-126); Anion Gap 11 mmol/L; Blood Urea Nitrogen 10 mg/dL (7-17); Calcium 9.2 mg/dL (8.4-10.2); Carbon Dioxide 29 mmol/L (22-30); Chloride 103 mmol/L (98-107); Cholesterol 184 mg/dL (<200); Glucose 92 mg/dL (74-99); HDL Cholesterol 50 mg/dL (40-60); LDL Cholesterol,Calculated 117 mg/dL (0-99); Potassium 4.1 mmol/L (3.5-5.1); Sodium 143 mmol/L (137-145); Total Bilirubin 0.5 mg/dL (0.2-1.3); Total Protein 6.1 g/dL (6.3-8.2); Triglycerides 87 mg/dL (<150)
[2017-07-16 08:53] LABS: T4, Free (Free Thyroxine) 1.22 ng/dL (0.78-2.19)
== END | disposition home or self-care (01) ==
LOC: LABWHC1 06:36
PROVIDERS: ATTEND Family Medicine
DX: Z00.00 Encounter for general adult medical examination without abnormal findings (principal)
CPT/HCPCS: 36415; 80053; 80061; 84439; 84443; 85025

== ENCOUNTER 2017-07-21 06:55 | Day surgery (SDC) | payer OTHER, MEDICARE ==
[2017-07-09 14:57] VITALS: BMI 29.7
[~2017-07-21 06:55] MED LIST changes: -BACITRACIN 50,000 UNIT, POLYMYXIN B 500,000 UNIT in SODIUM CHLORIDE 0.9% IRRIGATIO 1,00... IRRIGATION ONE; -DEXAMETHASONE SOD PHOSPHATE 10 MG/ML 1 ML VIAL IV ONE; -HYDROmorphone 1 MG/ML 1 ML SYRINGE IVP PRN; -ONDANSETRON 4 MG/2 ML VIAL IVP ONE; -Pre Op ABX Message 1 EACH MISC MISCELLANE ONE; -SCOPOLAMINE 1.5MG/72HR PATCH TRANSDERM ONE; +SODIUM CHLORIDE 0.9% 1,000 ML IV SCH
[2017-07-21] MEDS ORDERED: PHENYLEPHRINE-0.9% NACL SYG 1 MG/10 ML SYRINGE ONE (09:07)
[2017-07-21] MEDS ORDERED: ISOPROTERENOL 250 MCG/1.25 ML SYR IV ONE (09:07)
[2017-07-21] MEDS ORDERED: fentaNYL (PF) 50 MCG/ML 2 ML AMP ONE (09:07)
[2017-07-21] MEDS ORDERED: PROPOFOL 10 MG/ML 20 ML VIAL IV ONE (09:07)
[2017-07-21] MEDS ORDERED: MIDAZOLAM 2 MG/2 ML VIAL ONE (09:07)
[2017-07-21] MEDS ORDERED: LIDOCAINE 2% INJ 20 MG/ML (20 ML MDV) ONE ×2 (09:34→09:59)
[2017-07-21] MEDS ORDERED: HEPARIN SODIUM (1,000 UNIT/ML) 1,000 UNIT in SODIUM CHLORIDE 0.9% 1,000 ML IRRIGATION ONE (09:38)
[2017-07-21] MEDS ORDERED: HEPARIN SODIUM 1,000 UN/ML (10ML VL) ONE (09:39)
[2017-07-21] MEDS ORDERED: LIDOCAINE 2% INJ 20 MG/ML SQ ONE ×2 (09:54→10:01)
[2017-07-21] MEDS ORDERED: ACETAMINOPHEN IV (For NPO) 1,000 MG in EMPTY BAG 1 BAG IVPB ONE (11:50)
[2017-07-21] MEDS ORDERED: AZELASTINE 137MCG/SPRAY NASAL PRN (11:52)
[2017-07-21] MEDS ORDERED: ALBUTEROL NEBULIZED 2.5 MG/3 ML INHALATION PRN (11:52)
[2017-07-21] MEDS ORDERED: MOMETASONE FUROATE EA NOSTRIL SCH (13:00)
--- NOTE | 2017-07-21 13:08 | CE ---
CARDIAC ELECTROPHYSIOLOGY REPORT A 57-year-old female presenting with recurrent palpitations, SVT greater than 200 beats per minute, recurrent, on atenolol. She is brought to the EP lab for a diagnostic EP study and possible ablation. Patient is brought to the EP lab in a fasting state. Written informed consent was obtained prior to the procedure. Right and left groins were prepped and draped as per protocol; 1% lidocaine was used for local anesthesia. Three venous sheaths were placed in the right femoral vein, 1 venous sheath in the left femoral vein and via these diagnostic catheters were placed in the right heart including high right atrial catheter, HIS bundle catheter, RV catheter and coronary sinus catheter. Baseline measurements were as follows: Sinus cycle length 106 milliseconds, OK interval 129 milliseconds, QRS 93 milliseconds, QT 470 milliseconds. AH interval 67 milliseconds, HV interval 39 milliseconds. Sinus node recovery times 600 and 500 milliseconds were 1494 and 1387 milliseconds. Corresponding corrected sinus node recovery times were within normal limits. When sinus node recovery times were performed at a paced cycle length of 400 milliseconds, SVT was very easily inducible. This was a short RP tachycardia with a septal VA times of less than 60 milliseconds consistent with AV johnny reentry. Para-hisian pacing was performed. The conduction was midline and decremental. Para- hisian pacing was performed and johnny response was noted. Finally, 3 tachycardias were induced. 1. Atypical AV reentrant tachycardia. 2. An atrial tachycardia with the earliest atrial activity in the septal poles. The P wave morphology and 12-lead ECG was deep negative in AVF, negative in lead 2 and lead 3. The lead 1 was biphasic, negative followed by positive. V1 was isoelectric followed by slightly negative. 3. Non nonsustained atrial fibrillation with spontaneous termination. Isuprel was used during the case. A 3D mapping was performed. An RF ablation was performed. Slow pathway was mapped. A long sheath was placed and 4 mm tip navigational non-irrigated tip catheter was used. The slow pathway was mapped. RF ablation was applied. Good power, about 50 preciado was used. Good temperature was achieved. Junctional rhythm was noted and the slow pathway was eliminated completely. Following that, both on and off Isuprel, there was no evidence of slow pathway conduction. No evidence for AV johnny reentry. On high-dose Isuprel, atrial fibrillation, atrial tachycardia could not be induced. This was induced only in the sedated non-Isuprel state. At the end of the procedure, the OK interval was stable. VA Wenckebach block 220 milliseconds, midline and decremental. AV node Wenckebach block from the high right atrium was 230 milliseconds. AV node Wenckebach block from the coronary sinus was 220 milliseconds. Atrial extra stimulation was performed from the high right atrium and coronary sinus. Ventricular extra stimulation was performed, ventricular ERP was 500 back/250 milliseconds. Atrial ERP 500/200 milliseconds. All catheters were removed and patient was transferred back to telemetry. RESULT: Diagnostic EP study revealin. Typical AV johnny reentry tachycardia, status post successful ablation. Slow pathway was eliminated. The tachycardia was rendered noninducible. 2. Nonsustained atrial tachycardia with spontaneous termination, earliest electrograms in the septal electrodes. 3. Nonsustained atrial fibrillation with spontaneous termination. 4. The atrial tachycardia and atrial fibrillation were only induced with atrial pacing off Isuprel. On Isuprel, they were noninducible. Patient tolerated the procedure well without any acute complications. MMODL / IJN: [id number] /
[2017-07-21] MEDS: HYDROcodone/APAP 5-325MG 1 EACH TAB PO PRN ×3 (14:54→22:55)
[2017-07-21] MEDS: LACTATED RINGERS 1,000 ML IV SCH ×2 (17:06→17:07)
[2017-07-21] MEDS: ACETAMINOPHEN TAB 325 MG TAB PO PRN (18:41)
[2017-07-21] MEDS: SYMBICORT 80-4.5 MCG INHALER INHALATION SCH (20:14)
[2017-07-21] MEDS ORDERED: MONTELUKAST 10 MG TAB PO SCH (21:00)
[2017-07-22] MEDS: HYDROcodone/APAP 5-325MG 1 EACH TAB PO PRN ×2 (03:26→08:13)
[2017-07-22] MEDS: ACETAMINOPHEN TAB 325 MG TAB PO PRN (05:40)
[2017-07-22] MEDS ORDERED: LEVOTHYROXINE 125 MCG TAB PO SCH (06:30)
[2017-07-22] MEDS ORDERED: TIROSINT PO SCH (06:30)
[2017-07-22] MEDS: SYMBICORT 80-4.5 MCG INHALER INHALATION SCH (07:12)
[2017-07-22 08:21] VITALS: BP 161/72; PULSE 86; RESP 20; TEMP 98.1
[2017-07-22 08:42] LABS: HGB 12.7 gm/dL (11.4-16.0); MCH 29.8 pg (25.0-35.0); MCHC 33.3 g/dL (31.0-37.0); MCV 89.5 fL (80.0-100.0); Mean Platelet Volume 6.7; Platelet Count 233 k/uL (150-450); RBC 4.25 m/uL (3.80-5.40); RDW 13.4 % (11.5-15.5); WBC 5.9 k/uL (3.8-10.6)
[2017-07-22 08:48] LABS: Anion Gap 10 mmol/L; Blood Urea Nitrogen 8 mg/dL (7-17); Calcium 8.9 mg/dL (8.4-10.2); Carbon Dioxide 27 mmol/L (22-30); Chloride 104 mmol/L (98-107); Glucose 116 mg/dL (74-99); Magnesium 2.1 mg/dL (1.6-2.3); Potassium 3.8 mmol/L (3.5-5.1); Sodium 141 mmol/L (137-145)
[2017-07-22] MEDS ORDERED: FLUTICASONE 50MCG/SPRAY NASAL 16GM EA NOSTRIL SCH (09:00)
[2017-07-22] MEDS ORDERED: ESTRADIOL 0.5 MG TAB PO SCH (09:00)
[2017-07-22] MEDS ORDERED: ATENOLOL 25 MG TAB PO SCH (09:00)
[2017-07-22] MEDS ORDERED: FUROSEMIDE 40 MG TAB PO SCH (09:00)
[2017-07-22] MEDS ORDERED: POTASSIUM CHLORIDE ER 10 MEQ TAB.ER.PRT PO SCH (09:00)
--- NOTE | 2017-07-22 09:29 | P.DS ---
Providers Attending physician: Yoni Martinez Primary care physician: Layton Fugn [facility] Course: Patient is doing well from a cardiac standpoint. She is stable. She has no arrhythmias. Twelve-lead ECG is normal. Telemetry is within normal limits. Heart sounds are normal she has no chest discomfort dizziness lightheadedness or palpitations. Groins have healed well she is now groin issues. She does have back pain and has been asking for [place] On examination her blood pressure is 111/55 and 109/55 mmHg pulse rate is in the 60s she's afebrile 98.4F Heart sounds S1 and S2 are normal no murmurs or gallops no rub Breath sounds are clear no rhonchi no crackles Abdomen is soft nontender Extremities warm no edema No groin hematoma or swelling Impression AV johnny reentrant tachycardia status post successful ablation. tachycardia was rendered noninducible Nonsustained septal atrial tachycardia Nonsustained atrial fibrillation Plan Monitor for septal atrial tachycardia and atrial fibrillation in the future Patient may go home today in follow-up as scheduled Patient Condition at Discharge: Stable Plan - Discharge Summary Discharge Rx Participant: Yes New Discharge Prescriptions: Continue Potassium Chloride [Klor-Con M10] 10 meq PO DAILY Furosemide 40 mg PO DAILY Multivitamins, Thera [Multivitamin (formulary)] 1 tab PO DAILY Levocetirizine Dihydrochloride [Xyzal] 5 mg PO DAILY Cholecalciferol [Vitamin D3] 2,000 unit PO DAILY Montelukast Sodium [Singulair] 10 mg PO HS Fluticasone/Salmeterol [Advair 250-50 Diskus] 2 puff INHALATION DAILY Estradiol [Estrace] 1 mg PO DAILY rOPINIRole HCL [Requip] 2 mg PO HS Albuterol Sulfate [Proair Hfa] 2 puff INHALATION QID PRN PRN Reason: sob Atenolol 25 mg PO DAILY Azelastine HCl [Astepro] 1 spray NASAL BID PRN PRN Reason: Allergy Symptoms Fluticasone Nasal [place] [Flonase Nasal [place]] 2 spr EA NOSTRIL DAILY Levothyroxine Sodium [Tirosint] 125 mcg PO QAM Mometasone Furoate [Nasonex Nasal [place]] 2 spr EA NOSTRIL 1300 Discharge Medication List Cholecalciferol [Vitamin D3] 2,000 unit PO DAILY 09/29/13 [History] Furosemide 40 mg PO DAILY 09/29/13 [History] Levocetirizine Dihydrochloride [Xyzal] 5 mg PO DAILY 09/29/13 [History] Multivitamins, Thera [Multivitamin (formulary)] 1 tab PO DAILY 09/29/13 [History ] Potassium Chloride [Klor-Con M10] 10 meq PO DAILY 09/29/13 [History] Fluticasone/Salmeterol [Advair 250-50 Diskus] 2 puff INHALATION DAILY 09/12/14 [ History] Montelukast Sodium [Singulair] 10 mg PO HS 09/12/14 [History] Estradiol [Estrace] 1 mg PO DAILY 12/16/14 [History] rOPINIRole HCL [Requip] 2 mg PO HS 01/02/16 [History] Albuterol Sulfate [Proair Hfa] 2 puff INHALATION QID PRN 07/09/17 [History] Atenolol 25 mg PO DAILY 07/09/17 [History] Azelastine HCl [Astepro] 1 spray NASAL BID PRN 07/09/17 [History] Fluticasone Nasal [place] [Flonase Nasal [place]] 2 spr EA NOSTRIL DAILY 07/09/17 [ History] Levothyroxine Sodium [Tirosint] 125 mcg PO QAM 07/09/17 [History] Mometasone Furoate [Nasonex Nasal [place]] 2 spr EA NOSTRIL 1300 07/09/17 [History ] Follow up Appointment(s)/Referral(s): Yoni Martinez MD [STAFF PHYSICIAN] - 09/10/17 10:30 am (Friday -appointment made by Dr. Martinez Patient should be discharged only after she speaks with a patient advocate) Patient Instructions/Handouts: Cardiac Ablation (DC) Activity/Diet/Wound Care/Special Instructions: Post EP study - Ablation instructions 1. Keep access sites dry for 2 days. 2. No heavy lifting or straining for 2 days. 3. Avoid bending the hips repeatedly for 2 days. 4. You may go up and down stairs slowly Call if the following is noted 1. Bleeding, increasing swelling or pain at the access sites. 2. Increasing chest discomfort, especially upon taking a deep breath. 3. Increasing shortness of breath, at rest or with exertion. 4. Undue cough / phlegm 5. Difficulty or pain while swallowing. 6. Pain or change in color in the extremities. 7. Fever, chills, rigors. 8. Increasing headache or neurologic symptoms. 9. Dizziness, fainting, palpitations Keep follow-up appointment as scheduled with Dr. Martinez Discharge Disposition: HOME SELF-CARE
== END 2017-07-22 09:50 | disposition home or self-care (01) ==
LOC: CATHEP 06:55 → 6SEL 11:37 → CATHEP 07-22 09:50
PROVIDERS: ATTEND Internal Medicine Clinical Cardiac Electrophysiology
DX: I47.1 Supraventricular tachycardia (principal); I48.91 Unspecified atrial fibrillation; J44.9 Chronic obstructive pulmonary disease, unspecified; E21.3 Hyperparathyroidism, unspecified; M48.061 Spinal stenosis, lumbar region without neurogenic claudication; K21.9 Gastro-esophageal reflux disease without esophagitis; F41.9 Anxiety disorder, unspecified; F32.9 Major depressive disorder, single episode, unspecified; F17.210 Nicotine dependence, cigarettes, uncomplicated; Z82.49 Family history of ischemic heart disease and other diseases of the circulatory system; Z79.51 Long term (current) use of inhaled steroids; Z79.899 Other long term (current) drug therapy; Z79.890 Hormone replacement therapy; Z88.6 Allergy status to analgesic agent; Z88.1 Allergy status to other antibiotic agents; Z91.010 Allergy to peanuts
CPT/HCPCS: 94640 ×2; 93623; 93613; 93653; 80048; 83735; 85027; C1894; C1769 ×2; C1730 ×3; C1732; C1893; J2001; J2250; J3010; J0131; J2370; J2704

== ENCOUNTER → 2017-08-12 | Outpatient (CLI) | payer OTHER, MEDICARE ==
--- NOTE | 2017-08-13 10:11 | MM ---
Reason for exam: screening (asymptomatic). Last mammogram was performed 1 year and 8 months ago. History: Taking estrogen for 1 year beginning at age 54. Physical Findings: A clinical breast exam by your physician is recommended on an annual basis and results should be correlated with mammographic findings. MG Screening Mammo w CAD Bilateral CC and MLO view(s) were taken. Prior study comparison: December 04, 2015, bilateral MG screening mammo w CAD. May 23, 2014, bilateral MG screening mammo w CAD. There are scattered fibroglandular densities. There is no discrete abnormality. No significant changes when compared with prior studies. ASSESSMENT: Negative, BI-RAD 1 RECOMMENDATION: Routine screening mammogram of both breasts in 1 year.
== END | disposition home or self-care (01) ==
LOC: RADMAMWWP 07:20
PROVIDERS: ATTEND Obstetrics & Gynecology
DX: Z12.31 Encounter for screening mammogram for malignant neoplasm of breast (principal)
CPT/HCPCS: 77067

== ENCOUNTER → 2017-11-27 | Outpatient (CLI) | payer OTHER, MEDICARE ==
[2017-11-27 10:30] VITALS: BP 118/80; PULSE 87; TEMP 98.4; BMI 36.8
[2017-11-27 13:18] LABS: HCT 41.7 % (34.0-46.0); MCH 29.1 pg (25.0-35.0); MCHC 33.7 g/dL (31.0-37.0); MCV 86.3 fL (80.0-100.0); Platelet Count 299 k/uL (150-450); RBC 4.83 m/uL (3.80-5.40); RDW 13.3 % (11.5-15.5); WBC 8.8 k/uL (3.8-10.6)
[2017-11-27 13:50] LABS: Albumin 4.1 g/dL (3.5-5.0); Calcium 9.3 mg/dL (8.4-10.2); Potassium 4.2 mmol/L (3.5-5.1); Total Bilirubin 0.5 mg/dL (0.2-1.3); Total Protein 7.4 g/dL (6.3-8.2)
[2017-11-27 19:58] LABS: Iron Saturation 16.57 (12.00-45.00)
[2017-11-27 20:09] LABS: Vitamin D 25 Hydroxy 29.8 ng/mL (30.0-100.0)
[2017-11-27 20:23] LABS: Hemoglobin A1C 5.6 % (4.0-6.0)
--- NOTE | 2017-11-27 21:40 | P.HPBAR ---
Bariatric H&P - History & Physicial H&P Date: 11/27/17 History & Physicial: Visit/CC: initial consult Patient initial contact: Initial weight: Initial weight in pounds: Height: 5 ft 4 in Initial BMI: Last weight: Current weight: 97.522 kg Current weight in pounds: 215.00 Current BMI: 36.8 [employer] body weight (based on NIH guidelines): 54.431 kg Excess body weight loss: The patient is a 57 year-old F who presents for Bariatric Assessment. HPI: She presents with severe GERD following previous fundoplasty. She has COPD , osteoarthritis, hypertensive heart disease. She is looking into the gastric bypass. She has recently stopped smoking. ABDOMEN: Unremarkable PLAN: 1. Sleep apnea evaluation advised. 2. Manometry reviewed 3. Recommend take down of Emir fundoplasty followed by gastric bypass. Past Medical History Past Medical History: Asthma, COPD, Osteoarthritis (OA), Rheumatoid Arthritis ( RA), Supraventricular Tachycardia (SVT), Thyroid Disorder Additional Past Medical History / Comment(s): SPINAL STENOSIS, IODINE TX TO environmental allergies, History of Any Multi-Drug Resistant Organisms: None Reported Past Surgical History: Back Surgery, Hysterectomy, Joint Replacement, Orthopedic Surgery Additional Past Surgical History / Comment(s): COLONOSCOPY, SPINAL FUSION, EMIR FUNDOPLICATION, left hip replacment, summer knee replacements, nasal polyps x6, Past Anesthesia/Blood Transfusion Reactions: No Reported Reaction Smoking Status: Former smoker - Past Family History Father Family Medical History: Cancer Mother Family Medical History: No Reported History Surgical - Exam Vital Signs Temp Pulse BP 98.4 F 87 118/80 11/27/17 10:18 11/27/17 10:18 11/27/17 10:18 Results - Labs 11/27/17 11:50 11/27/17 11:50 Abnormal Lab Results - Last 24 Hours (Table) 11/27/17 11/27/17 Range/Units 11:50 11:50 Cholesterol 255 H (<200) mg/dL LDL Cholesterol, Calc 167 H (0-99) mg/dL HDL Cholesterol 72 H (40-60) mg/dL Vitamin D 25-Hydroxy 29.8 L (30.0-100.0) ng/mL TSH 7.350 H (0.465-4.680) mIU/L Diabetes panel 11/27/17 11/27/17 Range/Units 11:50 11:50 Sodium 139 (137-145) mmol/L Potassium 4.2 (3.5-5.1) mmol/L Chloride 100 (98-107) mmol/L Carbon Dioxide 29 (22-30) mmol/L BUN 17 (7-17) mg/dL Creatinine 0.87 (0.52-1.04) mg/dL Glucose 91 (74-99) mg/dL Hemoglobin A1c 5.6 (4.0-6.0) % Calcium 9.3 (8.4-10.2) mg/dL AST 20 (14-36) U/L ALT 24 (9-52) U/L Alkaline Phosphatase 84 (38-126) U/L Total Protein 7.4 (6.3-8.2) g/dL Albumin 4.1 (3.5-5.0) g/dL Triglycerides 78 (<150) mg/dL HDL Cholesterol 72 H (40-60) mg/dL Thyroid panel 11/27/17 Range/Units 11:50 TSH 7.350 H (0.465-4.680) mIU/L Calcium panel 11/27/17 Range/Units 11:50 Calcium 9.3 (8.4-10.2) mg/dL Albumin 4.1 (3.5-5.0) g/dL Pituitary panel 11/27/17 Range/Units 11:50 Sodium 139 (137-145) mmol/L Potassium 4.2 (3.5-5.1) mmol/L Chloride 100 (98-107) mmol/L Carbon Dioxide 29 (22-30) mmol/L BUN 17 (7-17) mg/dL Creatinine 0.87 (0.52-1.04) mg/dL Glucose 91 (74-99) mg/dL Calcium 9.3 (8.4-10.2) mg/dL TSH 7.350 H (0.465-4.680) mIU/L Adrenal panel 11/27/17 Range/Units 11:50 Sodium 139 (137-145) mmol/L Potassium 4.2 (3.5-5.1) mmol/L Chloride 100 (98-107) mmol/L Carbon Dioxide 29 (22-30) mmol/L BUN 17 (7-17) mg/dL Creatinine 0.87 (0.52-1.04) mg/dL Glucose 91 (74-99) mg/dL Calcium 9.3 (8.4-10.2) mg/dL Total Bilirubin 0.5 (0.2-1.3) mg/dL AST 20 (14-36) U/L ALT 24 (9-52) U/L Alkaline Phosphatase 84 (38-126) U/L Total Protein 7.4 (6.3-8.2) g/dL Albumin 4.1 (3.5-5.0) g/dL Bariatric Checklist Checklist: Plan: Checklist: EGD: 1. Hiatal hernia: 2. H. Pylori: HgbA1c: Vitamin D: Smoking: Former smoker Primary care physician referral: Layton Richter Psychiatry clearance: Cardiology clearance: Sleep study: Diet journal: VTE risk score: VTE risk level: Rehab needs at discharge:
[2017-11-29 14:16] LABS: Anabasine Urine <2.0 ng/mL (<2.0)
== END ==
LOC: BARWHC3 09:35
PROVIDERS: ATTEND Surgery Plastic and Reconstructive Surgery
DX: K21.9 Gastro-esophageal reflux disease without esophagitis (principal); E66.01 Morbid (severe) obesity due to excess calories; J44.9 Chronic obstructive pulmonary disease, unspecified; M85.80 Other specified disorders of bone density and structure, unspecified site; I11.9 Hypertensive heart disease without heart failure; D50.9 Iron deficiency anemia, unspecified; E45 Retarded development following protein-calorie malnutrition; E55.9 Vitamin D deficiency, unspecified; E11.9 Type 2 diabetes mellitus without complications; Z68.36 Body mass index [BMI] 36.0-36.9, adult; Z87.891 Personal history of nicotine dependence
CPT/HCPCS: 80053; 80061; 80323; 82306; 82607; 82728; 82746; 83036; 83540; 83550; 84425; 84443; 85027; 99211

== ENCOUNTER 2018-01-15 08:35 | Inpatient (IN) | payer OTHER, MEDICARE ==
[~2018-01-15 08:35] MED LIST changes: +CLINDAMYCIN 900 MG in DEXTROSE 5% IN WATER 50 ML IVPB ONE; +DEXAMETHASONE SOD PHOSPHATE 10 MG/ML 1 ML VIAL IV ONE; -MIDAZOLAM 2 MG/2 ML VIAL IV PRN; +ONDANSETRON 4 MG/2 ML VIAL IVP ONE; +SCOPOLAMINE 1.5MG/72HR PATCH TRANSDERM ONE; -SODIUM CHLORIDE 0.9% 1,000 ML IV SCH
[2018-01-15] MEDS ORDERED: ENOXAPARIN 40 MG/0.4 ML SYRINGE SQ STA (09:05)
[2018-01-15] MEDS ORDERED: CHLORHEXIDINE GLUCONATE 15 ML CUP MUCOUS MEM ONE (09:05)
[2018-01-15] MEDS ORDERED: PANTOPRAZOLE 40 MG/10 ML VIAL IV STA (09:05)
--- NOTE | 2018-01-15 09:05 | P.GSHP ---
History of Present Illness H&P Date: 01/15/18 CHIEF COMPLAINT: Recurrent paraesophageal hiatal hernia with gastroesophageal reflux disease HISTORY OF PRESENT ILLNESS: The patient is a 57-year-old female who presents with paraesophageal hiatal hernia now with recurrent. She has completed an esophageal manometry including upper endoscopy workup. Now she presents for surgical intervention. PAST MEDICAL HISTORY: Please see list. PAST SURGICAL HISTORY: Please see list. MEDICATIONS: Please see list. ALLERGIES: Please see list. SOCIAL HISTORY: No illicit drug use FAMILY HISTORY: No reports of Crohn disease or ulcerative colitis. REVIEW OF ORGAN SYSTEMS: CONSTITUTIONAL: No reports of fevers or chills. GI: Denies any blood in stools or constipation. PHYSICAL EXAM: VITAL SIGNS: Stable GENERAL: Well-developed pleasant and in no acute distress. HEENT: No scleral icterus. Extraocular movements grossly intact. Moist buccal mucosa. NECK: Supple without lymphadenopathy. CHEST: Unlabored respirations. Equal bilateral excursions. CARDIOVASCULAR: Regular rate and rhythm. Distal 2+ pulses. ABDOMEN: Soft, nondistended. No peritoneal signs. MUSCULOSKELETAL: No clubbing, cyanosis, or edema. SKIN: Well-perfused. Good skin turgor. MANOMETRY: Shows no evidence of achalasia or scleroderma. ASSESSMENT: 1. Diaphragmatic recurrentparaesophageal hiatal hernia with severe gastroesophageal reflux disease. PLAN: 1. Recommend proceeding with a robotic paraesophageal hiatal hernia with possible mesh. 2. Benefits and risks of surgical intervention was discussed including possibility of open technique. 3. Inpatient hospitalization recommended of 2 nights 4. DVT prophylaxis. 5. Antibiotic prophylaxis. 6. She has also completed a very low caloric high-protein diet to address underlying hepatomegaly. Past Medical History Past Medical History: Asthma, COPD, GERD/Reflux, Hyperlipidemia, Osteoarthritis (OA), Rheumatoid Arthritis (RA), Supraventricular Tachycardia (SVT), Thyroid Disorder Additional Past Medical History / Comment(s): SPINAL STENOSIS. IODINE TX FOR THYROID. Environmental allergies. SVT 07/21/17. FAILURE OF EMIR FUNDOPLASTY CURRENT. History of Any Multi-Drug Resistant Organisms: None Reported Past Surgical History: Back Surgery, Hysterectomy, Joint Replacement, Orthopedic Surgery Additional Past Surgical History / Comment(s): COLONOSCOPY, SPINAL FUSION, EMIR FUNDOPLICATION, Left hip replacment, summer knee replacements. Nasal polyps x6. EP STUDY W/ ABLATION 07/22/17. Past Anesthesia/Blood Transfusion Reactions: Motion Sickness Smoking Status: Former smoker - Past Family History Father Family Medical History: Cancer Mother Family Medical History: No Reported History Medications and Allergies Home Medications Medication Instructions Recorded Confirmed Type Cholecalciferol [Vitamin D3] 10,000 unit PO DAILY 09/29/13 01/06/18 History Furosemide 40 mg PO DAILY 09/29/13 01/06/18 History Levocetirizine Dihydrochloride 5 mg PO DAILY 09/29/13 01/06/18 History [Xyzal] Multivitamins, Thera [Multivitamin 1 tab PO DAILY 09/29/13 01/06/18 History (formulary)] Potassium Chloride [Klor-Con M10] 10 meq PO DAILY 09/29/13 01/06/18 History Fluticasone/Salmeterol [Advair 2 puff INHALATION DAILY 09/12/14 01/06/18 History 250-50 Diskus] Montelukast Sodium [Singulair] 10 mg PO HS 09/12/14 01/06/18 History Estradiol [Estrace] 1 mg PO DAILY 12/16/14 01/06/18 History rOPINIRole HCL [Requip] 2 mg PO HS 01/02/16 01/06/18 History Albuterol Sulfate [Proair Hfa] 2 puff INHALATION QID PRN 07/09/17 01/06/18 History Azelastine HCl [Astepro] 1 spray NASAL BID PRN 07/09/17 01/06/18 History Fluticasone Nasal [place] [Flonase 2 spr EA NOSTRIL DAILY 07/09/17 01/06/18 History Nasal [place]] Levothyroxine Sodium [Tirosint] 176 mcg PO QAM 07/09/17 01/06/18 History Mometasone Furoate [Nasonex Nasal 2 spr EA NOSTRIL 1300 07/09/17 01/06/18 History [place]] Atorvastatin [Lipitor] 20 mg PO DAILY 01/06/18 01/06/18 History Omeprazole [PriLOSEC] 40 mg PO DAILY 01/06/18 01/06/18 History buPROPion HCL [Wellbutrin SR] 150 mg PO BID 01/06/18 01/06/18 History clonazePAM [KlonoPIN] 0.5 mg PO BID 01/06/18 01/06/18 History Allergies Allergy/AdvReac Type Severity Reaction Status Date / Time peanut Allergy Severe Anaphylaxis Verified 01/06/18 12:01 NSAIDS (Non-Steroidal Allergy Unknown Nausea & Verified 01/06/18 12:01 Anti-Inflamma Vomiting, Lightheaded., Has samters Triad. aspirin Allergy Has Verified 01/06/18 12:01 Samters Triad, Nausea & Vomiting cephalexin monohydrate Allergy Rash/Hives Verified 01/06/18 12:01 [From Keflex] ibuprofen Allergy Nausea & Verified 01/06/18 12:01 Vomiting, Lightheaded., Has Samters Triad. propoxyphene napsylate Allergy Nausea & Verified 01/06/18 12:01 [From Darvocet-N 100] Vomiting yeast Allergy Severe Anaphylaxis Uncoded 01/06/18 12:01
[2018-01-15] MEDS: LACTATED RINGERS 1,000 ML IV SCH (10:10)
[2018-01-15] MEDS ORDERED: SCOPOLAMINE 1.5MG/72HR PATCH TRANSDERM ONE (10:15)
[2018-01-15] MEDS ORDERED: MIDAZOLAM 2 MG/2 ML VIAL ONE (11:27)
[2018-01-15] MEDS ORDERED: HYDROmorphone (PF) 1 MG/ML ONE (11:27)
[2018-01-15] MEDS ORDERED: PROPOFOL 10 MG/ML 20 ML VIAL IV ONE (11:27)
[2018-01-15] MEDS ORDERED: SUCCINYLCHOLINE CHLORIDE 100 MG/5 ML SYR IV ONE (11:27)
[2018-01-15] MEDS ORDERED: LIDOCAINE 1% INJ 10MG/ML (20 ML MDV) ONE (11:27)
[2018-01-15] MEDS ORDERED: GLYCOPYRROLATE 0.2 MG/ML 2 ML VIAL ONE (11:27)
[2018-01-15] MEDS ORDERED: NEOSTIGMINE 1 MG/ML 10 ML VIAL ONE (11:27)
[2018-01-15] MEDS ORDERED: ROCURONIUM BROMIDE 10 MG/ML 10 ML VIAL IV ONE (11:27)
[2018-01-15] MEDS ORDERED: fentaNYL (PF) 50 MCG/ML 2 ML AMP ONE (11:27)
[2018-01-15] MEDS ORDERED: ALBUTEROL INHALER 60 PUFF/8 GM INHALER INHALATION ONE (11:27)
[2018-01-15] MEDS ORDERED: BUPIVACAIN-EPI 0.25%-1:200,000 30 ML VIAL SQ ONE (11:55)
[2018-01-15] MEDS ORDERED: LACTATED RINGERS 1,000 ML IV ONE (13:31)
[2018-01-15] MEDS ORDERED: HYDROmorphone 1 MG/ML 1 ML SYRINGE IVP PRN (14:05)
[2018-01-15] MEDS ORDERED: diphenhydrAMINE 50 MG/ML 1 ML VIAL IVP PRN (14:05)
[2018-01-15] MEDS ORDERED: NALOXONE 0.4 MG/ML 1 ML VIAL IV PRN (14:05)
--- NOTE | 2018-01-15 14:05 | P.OP ---
Date of Procedure: 01/15/18 Description of Procedure: Date of Procedure: 01/15/18 SURGEON: MARILYN SANCHES MD PREOPERATIVE DIAGNOSES: 1. Gastroesophageal reflux disease. 2. Recurrent paraesophageal hiatal hernia, midline. 3. Morbid obesity due to excess calories, BMI 37.4 4. Asthma 5. Chronic obstructive pulmonary disease 6. Hypothyroidism 7. Depressive disorder 8. Hyperlipidemia 9. Supraventricular tachycardia 10. Spinal stenosis 11. Rheumatoid arthritis POSTOPERATIVE DIAGNOSES: 1. Gastroesophageal reflux disease. 2. Recurrent paraesophageal hiatal hernia, midline, incarcerated, 7 x 4 cm 3. Morbid obesity due to excess calories, BMI 37.4 4. Asthma 5. Chronic obstructive pulmonary disease 6. Hypothyroidism 7. Depressive disorder 8. Hyperlipidemia 9. Supraventricular tachycardia 10. Spinal stenosis 11. Rheumatoid arthritis 12. Peritoneal adhesions OPERATION: 1. Robotic-assisted da Yissel Xi laparoscopic repair of recurrent incarcerated paraesophageal hiatal hernia, 7 x 4 cm, with Lamar Biopatch A 8 x 8 cm. 2. Robotic-assisted da Yissel Xi laparoscopic takedown of Blanca fundoplasty with extensive lysis of adhesions over 30 minutes 3. Intraoperative esophagogastroduodenoscopy ANESTHESIA: General with local anesthetic. ESTIMATED BLOOD LOSS: 20 mL Pathology: none sent Condition: stable Disposition: floor COMPLICATIONS: None. Operative Findings: 1. Incarcerated recurrent diaphragmatic hiatal hernia over 4 cm into the mediastinum 2. Retained paraesophageal sac causing lead point for recurrence resected 3. Extensive mediastinal dissection with 7 x 4 cm paraesophageal hiatal hernia identified 4. Takedown of Blanca fundoplasty performed as manometry demonstrates adequate lower esophagus sphincter pressure and length 5. Intraoperative EGD confirms Hill grade 1 closure 6. Console time 76 minutes INDICATIONS: The patient is a 58-year-old female who presents with regurgitation, gastroesophageal reflux disease poorly controlled despite medications, and a symptomatic diaphragmatic hiatal hernia. Preoperative workup including upper endoscopy demonstrated a Hill grade 4 lower esophageal valve. She completed an esophageal manometry. Given the severity of the symptoms, she had elected for surgical intervention. Benefits and risks including bleeding, infection, recurrence, dysphagia, injury to the lung, need for further surgery was described at length. Informed consent was obtained. DESCRIPTION: The patient was brought into the operating room and placed in supine position. Preoperatively she had received heparin subcutaneously for DVT prophylaxis. After general induction, the abdomen was prepped and draped in standard sterile fashion. The patient had previously voided prior to coming to the operating room. Ioban draping was placed along the abdomen. A timeout protocol was confirmed with the surgical team, for which the patient's name, procedure to be performed including DVT prophylaxis with bilateral SCDs, and preoperative antibiotics were also confirmed. A robotic da Yissel Xi system was prepped and primed. At 12 cm from the xiphoid to just below the umbilicus, proposed port sites were marked with indelible marker along the left axillary line, left mid-clavicular line with each ports were marked 10 cm from each other. A 5 mm 0 degrees laparoscopic trocar entry was performed along the left upper quadrant. The abdomen was insufflated to 15 mmHg pressure she tolerated well. Diagnostic laparoscopy demonstrated no injury to bowel, viscera, or mesentery. No injury had occurred to the small bowel or viscera. Next, one 8 mm robotic port was placed along the right upper abdomen. An 8-mm port was were placed along the left lateral abdominal wall. The camera 8-mm port was maintained along the epigastrium via the hernia defect. Another 12 mm port was placed along the left upper abdominal wall after exchanging the 5 mm port. Please note that the ports were placed at least 20 cm away from the target anatomy. Care was taken to check that each robotic arm were safely away from collision with the bed or the patient. At the epigastrium, a median sized Mark liver retractor was placed under direct visualization with the [employer] Worker placed under the right shoulder of the patient. All robotic arms were used. The patient was repositioned in reverse Trendelenburg position at 14-degrees after lowering the bed. The robot was docked above the right side of the patient. Using a grasper for arm 3, a grasper for arm 1, including vessel sealer for arm 2, the robotic system was docked and primed as described. Instruments were interchanged by the library services assistant. I had sat at the console. The gastrohepatic ligament was cleaved using a vessel sealer. Next, the phrenoesophageal ligament was mobilized and the distal esophagus was mobilized circumferentially. The left and right crura was identified. An midline hiatal hernia and sac was found incarcerated into the mediastinum. Circumferentially, the hernia sac was excised and brought into the peritoneal cavity. Moderate dissection into the mediastinum was performed to release the esophagus into the abdominal cavity. Care was taken to avoid any gastrotomy. The measured defect was consistent with 7 cm axial length and 4 cm in width. After dissection, the distal esophagus of 4 cm was brought into the abdominal cavity. Extensive lysis of adhesions over 30 minutes was performed using vessel sealer. Once the hiatus and crura was dissected, 2-0 VLOC suture was placed to reapproximate the diaphragmatic hiatus posteriorly. To buttress the repair, a Lamar Biopatch A was prepared along the back table and cut in half of a mclean-hole fashion as to reinforce the repair as an underlay. The mesh was placed along the crural repair and tagged using horizontal mattress sutures using 2-0 VLOC. An Olympus gastroscope was passed through posterior oropharynx. Erosive esophagitis LA grade A was confirmed. The stomach was entered. Retroflexion of the scope confirmed a Hill grade 1 lower esophageal valve. The stomach had been desufflated. No evidence of leaks were found of the esophagus or stomach. The squamocolumnar junction and hiatus was placed at 40 cm from the incisors. The GI tract with desufflated. This concluded the endoscopic portion of the case. The robot was undocked from the patient. I re-scrubbed into the case. All instruments and pneumoperitoneum and specimens were evacuated from the abdominal cavity. Incisions were reapproximated using 4-0 Monocryl in an interrupted subcuticular fashion. Liquid glue was applied to the skin. Local anesthetic was infiltrated in all wounds for postop analgesia. Multiple intra-abdominal films were obtained. At the end of the procedure, needle, sponge, and instrument count was verified correct by the surgical sales representative. The patient had tolerated the procedure well and was taken to the postanesthesia unit in stable condition. Intraoperative films were reviewed with the patient's family who was pleased with the level of care.
[2018-01-15] MEDS: HYDROmorphone 1 MG/ML 1 ML SYRINGE IVP PRN ×2 (14:50→14:59)
[2018-01-15] MEDS: 0.9% NACL WITH KCL 20 MEQ/L 1,000 ML IV SCH (17:01)
[2018-01-15] MEDS: HYOSCYAMINE ORAL DROPS 1.875 MG/15 ML BOTTLE PO SCH (17:03)
[2018-01-15] MEDS: SIMETHICONE 40 MG/0.6 ML DROPS 2,000 MG/30 ML BOTTLE PO SCH (17:03)
[2018-01-15] MEDS: DEXAMETHASONE SOD PHOSPHATE 4 MG/ML 1 ML VIAL IV SCH (17:03)
[2018-01-15] MEDS: ONDANSETRON 4 MG/2 ML VIAL IVP SCH (17:04)
[2018-01-15] MEDS: METOCLOPRAMIDE 5 MG/ML 2 ML VIAL IVP SCH (17:04)
[2018-01-15] MEDS: ALBUTEROL NEBULIZED 2.5 MG/3 ML INHALATION SCH ×2 (17:21→21:12)
[2018-01-15] MEDS: HYDROcodone/APAP 15 ML SOLUTION PO PRN (19:29)
[2018-01-15] MEDS: CLINDAMYCIN 900 MG in DEXTROSE 5% IN WATER 50 ML IVPB SCH ×2 (20:22)
[2018-01-16] MEDS: DEXAMETHASONE SOD PHOSPHATE 4 MG/ML 1 ML VIAL IV SCH ×3 (00:10→12:27)
[2018-01-16] MEDS: HYOSCYAMINE ORAL DROPS 1.875 MG/15 ML BOTTLE PO SCH ×3 (00:13→12:24)
[2018-01-16] MEDS: SIMETHICONE 40 MG/0.6 ML DROPS 2,000 MG/30 ML BOTTLE PO SCH ×3 (00:14→12:26)
[2018-01-16] MEDS: METOCLOPRAMIDE 5 MG/ML 2 ML VIAL IVP SCH ×3 (00:16→12:40)
[2018-01-16] MEDS: ONDANSETRON 4 MG/2 ML VIAL IVP SCH ×2 (00:21→07:43)
[2018-01-16] MEDS: HYDROcodone/APAP 15 ML SOLUTION PO PRN ×4 (00:31→18:00)
[2018-01-16] MEDS: 0.9% NACL WITH KCL 20 MEQ/L 1,000 ML IV SCH (04:30)
[2018-01-16] MEDS: CLINDAMYCIN 900 MG in DEXTROSE 5% IN WATER 50 ML IVPB SCH ×2 (04:31)
[2018-01-16 07:09] LABS: Basophils % (A) 0 %; Eosinophils % (A) 0 %; HCT 35.7 % (34.0-46.0); HGB 11.8 gm/dL (11.4-16.0); Lymphocytes % (A) 15 %; MCH 29.6 pg (25.0-35.0); MCHC 33.1 g/dL (31.0-37.0); MCV 89.6 fL (80.0-100.0); Mean Platelet Volume 6.6; Monocytes # (A) 0.2 k/uL (0-1.0); Monocytes % (A) 3 %; Neutrophils # (A) 5.1 k/uL (1.3-7.7); Neutrophils % (A) 80 %; Platelet Count 272 k/uL (150-450); RBC 3.98 m/uL (3.80-5.40); RDW 13.6 % (11.5-15.5); WBC 6.3 k/uL (3.8-10.6)
[2018-01-16 07:19] LABS: Anion Gap 7 mmol/L; Blood Urea Nitrogen 10 mg/dL (7-17); Calcium 8.6 mg/dL (8.4-10.2); Carbon Dioxide 28 mmol/L (22-30); Chloride 106 mmol/L (98-107); Magnesium 2.1 mg/dL (1.6-2.3); Phosphorus 3.3 mg/dL (2.5-4.5); Potassium 4.3 mmol/L (3.5-5.1); Sodium 141 mmol/L (137-145)
[2018-01-16] MEDS: LACTATED RINGERS 1,000 ML IV SCH (07:45)
[2018-01-16] MEDS ORDERED: 0.9% NACL WITH KCL 20 MEQ/L 1,000 ML IV SCH (08:00)
[2018-01-16] MEDS: ALBUTEROL NEBULIZED 2.5 MG/3 ML INHALATION SCH ×3 (08:35→16:42)
[2018-01-16] MEDS ORDERED: FUROSEMIDE 40 MG TAB PO SCH (09:00)
[2018-01-16] MEDS ORDERED: ENOXAPARIN 40 MG/0.4 ML SYRINGE SQ SCH (09:00)
[2018-01-16] MEDS ORDERED: PANTOPRAZOLE 40 MG/10 ML VIAL IV SCH (09:00)
--- NOTE | 2018-01-16 09:19 | FL ---
EXAMINATION TYPE: FL esophagus cervic/pharynx DATE OF EXAM: 01/16/2018 LIMITED UGI-ESOPHAGRAM: CLINICAL HISTORY: History of Thomas fundoplication surgery 3 years ago with recurrent reflux-like sym ptoms and hiatal hernia status post repeat Thomas fundoplication surgery yesterday. TECHNIQUE: Limited esophagram is performed utilizing 50 oz of Isovue-370. A total of 16 seconds of f luoroscopic time was utilized during procedure. 11 spot images are saved. FINDINGS: The patient swallowed contrast without difficulty or delay. Esophageal peristalsis and mo tility are within normal limits. Surgical clips epigastric region are seen. There is good flow of con trast along the diaphragmatic hiatus into the stomach, there is no evidence of contrast extravasation to suggest leak. No persistent hiatal hernia is seen. Patient remains asymptomatic. IMPRESSION: No evidence of leak or significant obstruction status post Thomas fundoplication surgery yesterday.
[2018-01-16 11:53] VITALS: BMI 37.4
[2018-01-16 16:24] VITALS: BP 102/62; RESP 16; TEMP 98.2
[2018-01-16 16:57] VITALS: PULSE 70
--- NOTE | 2018-01-16 18:12 | P.DS ---
Providers Date of admission: 01/15/18 13:55 Expected date of discharge: 01/16/18 Attending physician: Alisha Villalobos Primary care physician: Layton Fung Plan - Discharge Summary Discharge Rx Participant: No New Discharge Prescriptions: New HYDROcodone/APAP [[place] Elixir 7.5-325Mg/15Ml] 15 ml PO Q4HR PRN #270 ml PRN Reason: Pain Continue Potassium Chloride [Klor-Con M10] 10 meq PO DAILY Furosemide 40 mg PO DAILY Multivitamins, Thera [Multivitamin (formulary)] 1 tab PO DAILY Levocetirizine Dihydrochloride [Xyzal] 5 mg PO DAILY Montelukast Sodium [Singulair] 10 mg PO HS Fluticasone/Salmeterol [Advair 250-50 Diskus] 1 puff INHALATION RT-BID Estradiol [Estrace] 1 mg PO DAILY rOPINIRole HCL [Requip] 2 mg PO HS Albuterol Sulfate [Proair Hfa] 2 puff INHALATION RT-QID PRN PRN Reason: Shortness Of Breath Azelastine HCl [Astepro] 1 spray NASAL BID PRN PRN Reason: Allergy Symptoms Fluticasone Nasal [place] [Flonase Nasal [place]] 2 spr EA NOSTRIL DAILY Mometasone Furoate [Nasonex Nasal [place]] 2 spr EA NOSTRIL DAILY@1300 Atorvastatin [Lipitor] 20 mg PO DAILY buPROPion HCL [Wellbutrin SR] 150 mg PO BID clonazePAM [KlonoPIN] 0.5 mg PO BID Albuterol Nebulized (Conc) [Ventolin Nebulized (Conc)] 2.5 mg INHALATION RT- QID PRN PRN Reason: Wheezing Cholecalciferol (Vitamin D3) [Vitamin D3] 10,000 unit PO DAILY Levothyroxine Sodium [Tirosint] 176 mcg PO QAM Discontinued Omeprazole [PriLOSEC] 40 mg PO DAILY Discharge Medication List Furosemide 40 mg PO DAILY 09/29/13 [History] Levocetirizine Dihydrochloride [Xyzal] 5 mg PO DAILY 09/29/13 [History] Multivitamins, Thera [Multivitamin (formulary)] 1 tab PO DAILY 09/29/13 [History ] Potassium Chloride [Klor-Con M10] 10 meq PO DAILY 09/29/13 [History] Fluticasone/Salmeterol [Advair 250-50 Diskus] 1 puff INHALATION RT-BID 09/12/14 [History] Montelukast Sodium [Singulair] 10 mg PO HS 09/12/14 [History] Estradiol [Estrace] 1 mg PO DAILY 12/16/14 [History] rOPINIRole HCL [Requip] 2 mg PO HS 01/02/16 [History] Albuterol Sulfate [Proair Hfa] 2 puff INHALATION RT-QID PRN 07/09/17 [History] Azelastine HCl [Astepro] 1 spray NASAL BID PRN 07/09/17 [History] Fluticasone Nasal [place] [Flonase Nasal [place]] 2 spr EA NOSTRIL DAILY 07/09/17 [ History] Mometasone Furoate [Nasonex Nasal [place]] 2 spr EA NOSTRIL DAILY@1300 07/09/17 [ History] Atorvastatin [Lipitor] 20 mg PO DAILY 01/06/18 [History] buPROPion HCL [Wellbutrin SR] 150 mg PO BID 01/06/18 [History] clonazePAM [KlonoPIN] 0.5 mg PO BID 01/06/18 [History] Albuterol Nebulized (Conc) [Ventolin Nebulized (Conc)] 2.5 mg INHALATION RT-QID PRN 01/15/18 [History] Cholecalciferol (Vitamin D3) [Vitamin D3] 10,000 unit PO DAILY 01/15/18 [History ] Levothyroxine Sodium [Tirosint] 176 mcg PO QAM 01/15/18 [History] HYDROcodone/APAP [[place] Elixir 7.5-325Mg/15Ml] 15 ml PO Q4HR PRN #270 ml [Rx] Follow up Appointment(s)/Referral(s): Alisha Villalobos MD [STAFF PHYSICIAN] - 01/20/18 Patient Instructions/Handouts: Laparoscopic Hiatal Hernia Repair (DC) Activity/Diet/Wound Care/Special Instructions: No lifting over 4 pounds in 4 weeks. May shower. No bath tub soaks. Liquid diet only. Discharge Disposition: HOME SELF-CARE
[2018-01-17] MEDS ORDERED: BISACODYL 5 MG TABLET.DR PO PRN (08:00)
== END 2018-01-16 19:00 | disposition home or self-care (01) | DRG 328 ==
LOC: OR 08:35 → EDSTATUS 08:55 → 6PED 13:55
PROVIDERS: ADMIT Surgery Plastic and Reconstructive Surgery; ATTEND Surgery Plastic and Reconstructive Surgery
PROC: 0DNW4ZZ Release Peritoneum, Percutaneous Endoscopic Approach (ICD-10-PCS; 2018-01-15)
PROC: 8E0W4CZ Robotic Assisted Procedure of Trunk Region, Percutaneous Endoscopic Approach (ICD-10-PCS; 2018-01-15)
PROC: 0DJ08ZZ Inspection of Upper Intestinal Tract, Via Natural or Artificial Opening Endoscopic (ICD-10-PCS; 2018-01-15)
PROC: 0BUT4JZ Supplement Diaphragm with Synthetic Substitute, Percutaneous Endoscopic Approach (ICD-10-PCS; principal; 2018-01-15 10:10)
DX: K44.0 Diaphragmatic hernia with obstruction, without gangrene (principal); R16.0 Hepatomegaly, not elsewhere classified; E66.01 Morbid (severe) obesity due to excess calories; E78.5 Hyperlipidemia, unspecified; J44.9 Chronic obstructive pulmonary disease, unspecified; K21.9 Gastro-esophageal reflux disease without esophagitis; K66.0 Peritoneal adhesions (postprocedural) (postinfection); M06.9 Rheumatoid arthritis, unspecified; M19.90 Unspecified osteoarthritis, unspecified site; M48.00 Spinal stenosis, site unspecified; E07.9 Disorder of thyroid, unspecified; Z68.37 Body mass index [BMI] 37.0-37.9, adult; Z79.890 Hormone replacement therapy; Z79.899 Other long term (current) drug therapy; Z87.891 Personal history of nicotine dependence; Z90.710 Acquired absence of both cervix and uterus; Z96.653 Presence of artificial knee joint, bilateral; Z98.1 Arthrodesis status; Z86.79 Personal history of other diseases of the circulatory system; Z96.642 Presence of left artificial hip joint; Z88.6 Allergy status to analgesic agent; Z88.1 Allergy status to other antibiotic agents; Z88.5 Allergy status to narcotic agent; Z91.010 Allergy to peanuts; Z91.09 Other allergy status, other than to drugs and biological substances; Z80.9 Family history of malignant neoplasm, unspecified
CPT/HCPCS: 74210; 80051; 82310; 82565; 83735; 84100; 84520; 85025; 94640; 94760

== ENCOUNTER → 2018-01-27 | Outpatient (CLI) | payer MEDICARE, OTHER ==
--- NOTE | 2018-01-27 15:52 | CONS ---
CONSULTATION 58-year-old female patient, obese, coming in for sleep apnea evaluation. The patient, at the same time, is undergoing bariatric surgery evaluation by Dr. Villalobos. She is interested in weight loss. At the same time, she has features of obstructive sleep apnea. She snores and she has fragmented sleep and she has excessive daytime sleepiness. She goes to bed around 10:00 p.m., wakes up at 6 a.m. in the morning. She takes naps during the day. Her [place] score is at 11. She has gained around 20 pounds over the past 5 years. She is coming in for further investigation. PAST MEDICAL HISTORY: 1. Obesity. 2. Hyperlipidemia. 3. Multiple environmental allergies. 4. Chronic bronchial asthma/COPD. 5. Restless legs syndrome. 6. Allergic rhinitis. 7. Hypothyroidism. 8. Anxiety/panic maintained on Klonopin 0.5 mg twice a day. 9. Lumbar disc disease. 10.Lumbar spinal stenosis. 11.History of SVT. 12.Acid reflux. 13.Nasal polyps. 14.Rheumatoid arthritis. SURGICAL HISTORY: Includes bilateral knee replacement. Right hip replacement and lumbar laminectomy and fusion. Cardiac catheterization and ablation of SVT, colonoscopy, reactive iodine treatment. DRUG ALLERGIES: MULTIPLE INCLUDING ALLERGIES TO PEANUTS, NONSTEROIDAL ANTI-INFLAMMATORY MEDICATION, ASPIRIN, CEPHALEXIN, PROPOXYPHENE. OUTPATIENT MEDICATION: Lasix 40 mg p.o. daily, Xyzal 5 mg p.o. b.i.d., multivitamin 1 tablet a day, potassium 10 mEq p.o. daily, Advair 250/50 1 puff twice a day, Singulair 10 mg p.o. daily. Estrace 1 mg p.o. daily, Requip 2 mg daily, Astelin nasal spray. Albuterol HFA on a p.r.n. basis. Flonase nasal spray, Nasonex nasal spray, albuterol HFA, albuterol nebulized solution through the nebulizer, Lipitor 20 daily, Wellbutrin 150 mg p.o. daily, vitamin D3, Klonopin 0.5 mg twice a day and levothyroxine 88 mcg p.o. daily. SOCIAL HISTORY: Ex-smoker. No history of alcohol. No history of IV drugs. Quit smoking 6 months ago. FAMILY HISTORY: Negative for obstructive sleep apnea. REVIEW OF SYSTEMS: 12-point review of system was done. Positive findings are mentioned above. She has trouble paying attention, She has chronic anxiety and depression. She has chronic back pain. She has occasional sleep talking. No sleep paralysis. No hallucinations. No cataplexy. No history of any motor vehicle accident because of feeling drowsy or sleepy. No nocturnal heartburn, chest pain or shortness of breath. PHYSICAL EXAMINATION: BP 139/82, pulse 85, respirations 16, temp 97.6, saturation 98% on room air. Weight is 213. Height is 5 feet 4 inches. Neck size 15 inches, [place] score 11, BMI 36.3. General appearance: Calm and comfortable. Head is atraumatic, normocephalic. NECK: Short, supple. Crowding of posterior pharynx. There is no goiter or neck masses. Lungs diminished otherwise clear. HEART: Sounds regular rate and rhythm. Normal S1, S2. No S3, S4. No murmurs. ABDOMEN: Soft, nontender. No organomegaly. EXTREMITIES: No edema. No cyanosis or clubbing. NEUROLOGIC: Alert and oriented x3. No focal neurological deficits. PSYCHIATRIC: No anxiety or depression. IMPRESSION: 1. Obstructive sleep apnea clinically suspected currently under investigation. 2. Excessive hypersomnia, [place] score of 11. 3. Obesity with a BMI of 36.3. 4. Loud snoring. 5. Hyperlipidemia. 6. Chronic environmental allergies and history of allergic rhinitis. 7. Chronic obstructive pulmonary disease/asthma. 8. Periodic limb movements/restless leg syndrome. 9. Hypothyroidism, currently on thyroid hormone supplement. 10.History of supraventricular tachycardia status post cardiac ablation. 11.Chronic back pain related to lumbar spinal stenosis and degenerative disc disease. 12.Acid reflux. 13.Nasal polyps. 14.Rheumatoid arthritis. PLAN: 1. Encourage weight loss. 2. Implement good sleep hygiene measures. 3. Optimize comorbidities. 4. Proceed with screening polysomnogram as part of investigation for obstructive sleep apnea syndrome. 5. We will continue to follow and make further recommendations based on the findings. MMODL / IJN: [id number] /
== END ==
LOC: SLEEP 13:15
PROVIDERS: ATTEND Internal Medicine Critical Care Medicine
DX: G47.10 Hypersomnia, unspecified (principal); E66.9 Obesity, unspecified; E78.5 Hyperlipidemia, unspecified; J30.9 Allergic rhinitis, unspecified; J44.9 Chronic obstructive pulmonary disease, unspecified; G47.61 Periodic limb movement disorder; G25.81 Restless legs syndrome; E03.9 Hypothyroidism, unspecified; G89.29 Other chronic pain; M54.9 Dorsalgia, unspecified; M48.061 Spinal stenosis, lumbar region without neurogenic claudication; M51.36 Other intervertebral disc degeneration, lumbar region; K21.9 Gastro-esophageal reflux disease without esophagitis; J33.9 Nasal polyp, unspecified; M06.9 Rheumatoid arthritis, unspecified; Z87.891 Personal history of nicotine dependence; Z79.899 Other long term (current) drug therapy; Z88.8 Allergy status to other drugs, medicaments and biological substances; Z88.6 Allergy status to analgesic agent; Z88.1 Allergy status to other antibiotic agents; Z68.36 Body mass index [BMI] 36.0-36.9, adult; Z86.79 Personal history of other diseases of the circulatory system; Z98.890 Other specified postprocedural states
CPT/HCPCS: 99211

== ENCOUNTER → 2018-03-04 | Outpatient (CLI) | payer OTHER ==
[2018-03-04 14:08] VITALS: TEMP 98.1; BMI 35.6
--- NOTE | 2018-03-04 14:44 | P.PN ---
Subjective Progress Note Date: 03/04/18 HPI: She hiatal hernia repair and is doing well. She is looking into the gastric bypas. ABDOMEN: Nontender. PLAN: 1. She is looking into gastric bypass. 2. Went over expectations 3. Doing well overall 4. Will need urine nicotine test. 5. Will repeat labs 6. Check thyroid Objective - Vital Signs Vital signs: Vital Signs Temp 98.1 F 03/04/18 13:58 Pulse 120 H 03/04/18 13:58 Resp BP 137/82 03/04/18 13:58 Pulse Ox Intake & Output 03/03/18 03/04/18 03/04/18 18:59 06:59 18:59 Weight 94.347 kg
[2018-03-04 14:56] VITALS: BP 133/89; PULSE 98
[2018-03-04 16:09] LABS: HCT 42.8 % (34.0-46.0); HGB 14.5 gm/dL (11.4-16.0); MCH 29.3 pg (25.0-35.0); MCHC 33.9 g/dL (31.0-37.0); MCV 86.6 fL (80.0-100.0); Platelet Count 313 k/uL (150-450); RBC 4.94 m/uL (3.80-5.40); RDW 13.7 % (11.5-15.5); WBC 9.4 k/uL (3.8-10.6)
[2018-03-04 16:21] LABS: INR 0.9 (<1.2)
[2018-03-04 16:22] LABS: Partial Thromboplastin Time 25.3 sec (22.0-30.0); Prothrombin Time 9.9 sec (9.0-12.0)
[2018-03-05 02:54] LABS: Albumin 4.6 g/dL (3.80-4.90); Albumin/Globulin Ratio 2.42 (1.20-2.10); Anion Gap 10.4 mmol/L (4.00-12.00); Calcium 9.5 mg/dL (8.7-10.3); Carbon Dioxide 29.6 mmol/L (21.6-31.8); Globulin 1.9 g/dL (1.6-3.3); LDL Cholesterol,Calculated 71.4 mg/dL (0.0-131.0); Phosphorus 4.1 mg/dL (2.4-5.1); Potassium 3.9 mmol/L (3.5-5.5); Total Bilirubin 0.5 mg/dL (0.3-1.2); Total Protein 6.5 g/dL (6.2-8.2); VLDL Calculation 16.6 mg/dL (5.00-40.00)
[2018-03-05 04:08] LABS: Iron Saturation 15.31 (12.00-45.00)
[2018-03-05 04:19] LABS: Vitamin D 25 Hydroxy 95.8 ng/mL (30.0-100.0)
[2018-03-05 04:27] LABS: Folate, Serum 14.6 ng/mL
[2018-03-05 05:01] LABS: Hemoglobin A1C 5.4 % (4.0-6.0)
[2018-03-05 13:27] LABS: Zinc, Serum 65 ug/dL (60-130)
[2018-03-06 04:30] LABS: Vitamin B1 85 ug/L (38-122)
[2018-03-06 04:41] LABS: Vitamin A 37 ug/dL (38-106)
== END ==
LOC: BARWHC3 12:59
PROVIDERS: ATTEND Surgery Plastic and Reconstructive Surgery
DX: Z48.815 Encounter for surgical aftercare following surgery on the digestive system (principal); E66.01 Morbid (severe) obesity due to excess calories; E21.1 Secondary hyperparathyroidism, not elsewhere classified; E89.1 Postprocedural hypoinsulinemia; D50.9 Iron deficiency anemia, unspecified; K90.9 Intestinal malabsorption, unspecified; E55.9 Vitamin D deficiency, unspecified; K74.1 Hepatic sclerosis; N19 Unspecified kidney failure; K50.90 Crohn's disease, unspecified, without complications; Z98.84 Bariatric surgery status; Z71.51 Drug abuse counseling and surveillance of drug abuser; Z68.35 Body mass index [BMI] 35.0-35.9, adult
CPT/HCPCS: 80053; 80061; 80323; 82306; 82525; 82607; 82728; 82746; 83036; 83540; 83550; 83735; 83970; 84100; 84134; 84255; 84425; 84443; 84590; 84630; 85027; 85610; 85730; 99211

== ENCOUNTER → 2018-03-09 | Outpatient (CLI) | payer OTHER ==
[2018-03-09 10:37] VITALS: BMI 35.7
== END | disposition home or self-care (01) ==
LOC: BARWHC3 08:21
PROVIDERS: ATTEND Surgery Plastic and Reconstructive Surgery
DX: E66.01 Morbid (severe) obesity due to excess calories (principal); Z68.35 Body mass index [BMI] 35.0-35.9, adult
CPT/HCPCS: 97804

== ENCOUNTER → 2018-04-16 | Outpatient (CLI) | payer OTHER ==
--- NOTE | 2018-04-16 12:57 | XR ---
EXAMINATION TYPE: XR chest 2V DATE OF EXAM: 04/16/2018 COMPARISON: Chest x-ray June 08, 2017 HISTORY: History of COPD and asthma with wheezing TECHNIQUE: Frontal and lateral views of the chest are obtained. FINDINGS: There is no focal air space opacity, pleural effusion, or pneumothorax seen. The cardiac silhouette size is within normal limits. The osseous structures are demineralized. IMPRESSION: No suspicious acute pulmonary process currently.
== END | disposition home or self-care (01) ==
LOC: RADXRMAIN 12:27
PROVIDERS: ATTEND Family Medicine
DX: R05 Cough (principal)
CPT/HCPCS: 71046

== ENCOUNTER → 2018-04-22 | Outpatient (CLI) | payer OTHER ==
[2018-04-22 12:39] VITALS: BMI 36.2
--- NOTE | 2018-04-22 13:17 | P.PN ---
Subjective Progress Note Date: 04/22/18 HPI: Patient comes in with denial from her insurance company of her bypass surgery. She has history of recurrent hiatal hernia and including severe recurrent reflux disease. She reports now recurrent symptoms of GERD despite her hiatal hernia repair. She reports that her GERD had resolved immediately after her hiatal hernia for several weeks. Now she reports pain epigastric pain is worse. Her symptoms have now recurred in the last 1 month despite being symptom free for 2 months. ABDOMEN: Tender along the epigastrium PLAN: 1. Despite all attempts of controlling her reflux including her hiatal hernia repair she reports worsening symptoms. 2. Recommend esophogram and repeat upper endoscopy for recurrent symptoms of GERD 3. Despite all surgical attempts of controlling reflux disease and her morbid obesity, recommend proceeding with sabina gastric bypass. Objective - Vital Signs Vital signs: Intake & Output 04/21/18 04/22/18 04/22/18 18:59 06:59 18:59 Weight 95.708 kg
--- NOTE | 2018-04-22 16:31 | FL ---
EXAMINATION TYPE: FL barium swallow DATE OF EXAM: 04/22/2018 COMPARISON: 01/16/2018 HISTORY: Reversal of Thomas fundoplication, recurrent reflux TECHNIQUE: A double air contrast UGI study is performed. FINDINGS: Esophagus dilates to normal caliber has normal contour to the gastroesophageal junction. Gastroesopha geal junction opens to normal caliber. Small hiatal hernia is present as demonstrated by Schatzki's r ing. No reflux was elicited. Surgical clips are in the epigastric region. Overhead radiographs were o btained. IMPRESSIONS: 1. Small hiatal hernia. 2. No stenosis.
== END ==
LOC: BARWHC3 11:33
PROVIDERS: ATTEND Surgery Plastic and Reconstructive Surgery
DX: Z48.815 Encounter for surgical aftercare following surgery on the digestive system (principal); K44.9 Diaphragmatic hernia without obstruction or gangrene; K21.9 Gastro-esophageal reflux disease without esophagitis
CPT/HCPCS: 74220; 99211

== ENCOUNTER 2018-04-23 10:01 | Day surgery (SDC) | payer OTHER, MEDICARE ==
[2018-04-22 14:46] VITALS: BMI 36.2
[2018-04-23 10:29] VITALS: TEMP 98.7
[2018-04-23] MEDS ORDERED: LIDOCAINE 1% 20 ML VIAL (10MG/ML) FOR IV START INTRADERMA ONE (10:34)
[2018-04-23] MEDS ORDERED: LACTATED RINGERS 1,000 ML IV ONE (10:34)
[2018-04-23] MEDS ORDERED: MIDAZOLAM 2 MG/2 ML VIAL IVP ONE (11:33)
--- NOTE | 2018-04-23 12:02 | P.GSHP ---
History of Present Illness H&P Date: 04/23/18 CHIEF COMPLAINT: GERD HISTORY OF PRESENT ILLNESS: The patient is a 58-year-old female who presents reports gastroesophageal reflux disease. Upper endoscopy was offered for further evaluation and management. PAST MEDICAL HISTORY: Please see list. PAST SURGICAL HISTORY: Please see list. MEDICATIONS: Please see list. ALLERGIES: Please see list. SOCIAL HISTORY: No illicit drug use FAMILY HISTORY: No reports of Crohn disease or ulcerative colitis. REVIEW OF ORGAN SYSTEMS: CONSTITUTIONAL: No reports of fevers or chills. GI: Denies any blood in stools or constipation. PHYSICAL EXAM: VITAL SIGNS: Stable GENERAL: Well-developed and pleasant in no acute distress. HEENT: No scleral icterus. Extraocular movements grossly intact. Moist buccal mucosa. NECK: Supple without lymphadenopathy. CHEST: Unlabored respirations. Equal bilateral excursions. CARDIOVASCULAR: Regular rate and rhythm. Distal 2+ pulses. ABDOMEN: Soft, nondistended. MUSCULOSKELETAL: No clubbing, cyanosis, or edema. ASSESSMENT: 1. Gastroesophageal reflux disease PLAN: 1. Recommend proceeding with an upper endoscopy Past Medical History Past Medical History: Asthma, COPD, GERD/Reflux, Osteoarthritis (OA), Rheumatoid Arthritis (RA), Supraventricular Tachycardia (SVT), Thyroid Disorder Additional Past Medical History / Comment(s): current tx bronchitis,and increased reflux,SPINAL STENOSIS, IODINE TX TO environmental allergies, History of Any Multi-Drug Resistant Organisms: None Reported Past Surgical History: Back Surgery, Hernia Repair, Hysterectomy, Joint Replacement, Orthopedic Surgery Additional Past Surgical History / Comment(s): COLONOSCOPY, SPINAL FUSION, EMIR FUNDOPLICATION, left hip replacment, summer knee replacements, nasal polyps x6, hiatal hernia repair Past Anesthesia/Blood Transfusion Reactions: No Reported Reaction Smoking Status: Former smoker - Past Family History Father Family Medical History: Cancer Mother Family Medical History: No Reported History Medications and Allergies Home Medications Medication Instructions Recorded Confirmed Type Furosemide 40 mg PO DAILY 09/29/13 04/22/18 History Levocetirizine Dihydrochloride 5 mg PO DAILY 09/29/13 04/22/18 History [Xyzal] Multivitamins, Thera [Multivitamin 1 tab PO DAILY 09/29/13 04/22/18 History (formulary)] Potassium Chloride [Klor-Con M10] 10 meq PO DAILY 09/29/13 04/22/18 History Fluticasone/Salmeterol [Advair 1 puff INHALATION RT-BID 09/12/14 04/22/18 History 250-50 Diskus] Montelukast Sodium [Singulair] 10 mg PO HS 09/12/14 04/22/18 History Estradiol [Estrace] 1 mg PO DAILY 12/16/14 04/22/18 History rOPINIRole HCL [Requip] 2 mg PO HS 01/02/16 04/22/18 History Albuterol Sulfate [Proair Hfa] 2 puff INHALATION RT-QID PRN 07/09/17 04/22/18 History Azelastine HCl [Astepro] 1 spray NASAL BID PRN 07/09/17 04/22/18 History Fluticasone Nasal [place] [Flonase 2 spr EA NOSTRIL DAILY 07/09/17 04/22/18 History Nasal [place]] Mometasone Furoate [Nasonex Nasal 2 spr EA NOSTRIL DAILY@1300 07/09/17 04/22/18 History [place]] Atorvastatin [Lipitor] 20 mg PO DAILY 01/06/18 04/22/18 History buPROPion HCL [Wellbutrin SR] 150 mg PO BID 01/06/18 04/22/18 History clonazePAM [KlonoPIN] 0.5 mg PO BID 01/06/18 04/22/18 History Albuterol Nebulized (Conc) 2.5 mg INHALATION RT-QID PRN 01/15/18 04/22/18 History [Ventolin Nebulized (Conc)] Cholecalciferol (Vitamin D3) 10,000 unit PO DAILY 01/15/18 04/22/18 History [Vitamin D3] Levothyroxine Sodium [Tirosint] 176 mcg PO QAM 01/15/18 04/22/18 History Levofloxacin [Levaquin] 500 mg PO DAILY 04/22/18 04/22/18 History Omeprazole 40 mg PO DAILY 04/22/18 04/22/18 History predniSONE 30 mg PO DAILY 04/22/18 04/22/18 History Allergies Allergy/AdvReac Type Severity Reaction Status Date / Time peanut Allergy Severe Anaphylaxis Verified 04/23/18 10:19 NSAIDS (Non-Steroidal Allergy Unknown Nausea & Verified 04/23/18 10:19 Anti-Inflamma Vomiting, Lightheaded., Has samters Triad. aspirin Allergy Has Verified 04/23/18 10:19 Samters Triad, Nausea & Vomiting cephalexin monohydrate Allergy Rash/Hives Verified 04/23/18 10:19 [From Keflex] ibuprofen Allergy Nausea & Verified 04/23/18 10:19 Vomiting, Lightheaded., Has Samters Triad. propoxyphene napsylate Allergy Nausea & Verified 04/23/18 10:19 [From Darvocet-N 100] Vomiting yeast Allergy Severe congestion Uncoded 04/23/18 10:19 Surgical - Exam Vital Signs Temp Pulse Resp BP Pulse Ox 98.7 F 73 18 121/58 95 04/23/18 10:28 04/23/18 10:28 04/23/18 10:28 04/23/18 10:28 04/23/18 10:28
[2018-04-23] MEDS ORDERED: LIDOCAINE 1% INJ 10MG/ML (20 ML MDV) ONE (12:27)
[2018-04-23] MEDS ORDERED: PROPOFOL 10 MG/ML 20 ML VIAL IV ONE (12:27)
--- NOTE | 2018-04-23 12:45 | P.PCN ---
Date of Procedure: 04/23/18 Description of Procedure: PREOPERATIVE DIAGNOSIS: Gastroesophageal reflux disease. Morbid obesity. History of hiatal hernia. Epigastric abdominal pain POSTOPERATIVE DIAGNOSIS: Morbid obesity. Gastritis. Gastroesophageal reflux disease. Recurrent diaphragmatic hiatal hernia erosive esophagitis OPERATION: Esophagogastroduodenoscopy with biopsies along antrum and distal esophagus SURGEON: Alisha Villalobos MD ANESTHESIA: MAC. INDICATIONS: The patient is a 58-year-old female who presents with a history of reflux disease. Benefits and risks of the procedure were described. Informed consent was obtained. DESCRIPTION: The patient was brought into the endoscopy suite and laid in the left lateral decubitus position. An Olympus gastroscope was passed along the posterior oropharynx down to the distal esophagus where the squamocolumnar junction was encountered at 40 cm from the incisors. The stomach was entered and no bile reflux was found. Additional findings are listed below. Biopsies with cold forceps were obtained of the antrum. The first through third portion of the duodenum was examined and unremarkable. Retroflexion of the scope confirmed Hill grade 3 lower esophageal valve. The squamocolumnar junction demonstrated LA grade B erosive esophagitis. The stomach was desufflated. The patient tolerated the procedure well. FINDINGS: Squamocolumnar junction 38 cm from the incisors. Diaphragmatic hiatus at 40 cm. Hiatal hernia, 2 cm Hill grade 3 lower esophageal valve. LA grade C erosive esophagitis. No active duodenitis. Chronic gastritis RECOMMENDATIONS: Upper endoscopy as needed. Restart antacids Recommend gastric diversion with [id number] reconstruction for severity of reflux disease Plan - Discharge Summary New Discharge Prescriptions: New Omeprazole 40 mg PO DAILY #90 capsule.dr No Action Potassium Chloride [Klor-Con M10] 10 meq PO DAILY Furosemide 40 mg PO DAILY Multivitamins, Thera [Multivitamin (formulary)] 1 tab PO DAILY Levocetirizine Dihydrochloride [Xyzal] 5 mg PO DAILY Montelukast Sodium [Singulair] 10 mg PO HS Fluticasone/Salmeterol [Advair 250-50 Diskus] 1 puff INHALATION RT-BID Estradiol [Estrace] 1 mg PO DAILY rOPINIRole HCL [Requip] 2 mg PO HS Albuterol Sulfate [Proair Hfa] 2 puff INHALATION RT-QID PRN PRN Reason: Shortness Of Breath Azelastine HCl [Astepro] 1 spray NASAL BID PRN PRN Reason: Allergy Symptoms Fluticasone Nasal [place] [Flonase Nasal [place]] 2 spr EA NOSTRIL DAILY Mometasone Furoate [Nasonex Nasal [place]] 2 spr EA NOSTRIL DAILY@1300 Atorvastatin [Lipitor] 20 mg PO DAILY buPROPion HCL [Wellbutrin SR] 150 mg PO BID clonazePAM [KlonoPIN] 0.5 mg PO BID Albuterol Nebulized (Conc) [Ventolin Nebulized (Conc)] 2.5 mg INHALATION RT- QID PRN PRN Reason: Wheezing Cholecalciferol (Vitamin D3) [Vitamin D3] 10,000 unit PO DAILY Levothyroxine Sodium [Tirosint] 176 mcg PO QAM Levofloxacin [Levaquin] 500 mg PO DAILY predniSONE 30 mg PO DAILY Omeprazole 40 mg PO DAILY Discharge Medication List Furosemide 40 mg PO DAILY 09/29/13 [History] Levocetirizine Dihydrochloride [Xyzal] 5 mg PO DAILY 09/29/13 [History] Multivitamins, Thera [Multivitamin (formulary)] 1 tab PO DAILY 09/29/13 [History] Potassium Chloride [Klor-Con M10] 10 meq PO DAILY 09/29/13 [History] Fluticasone/Salmeterol [Advair 250-50 Diskus] 1 puff INHALATION RT-BID 09/12/14 [History] Montelukast Sodium [Singulair] 10 mg PO HS 09/12/14 [History] Estradiol [Estrace] 1 mg PO DAILY 12/16/14 [History] rOPINIRole HCL [Requip] 2 mg PO HS 01/02/16 [History] Albuterol Sulfate [Proair Hfa] 2 puff INHALATION RT-QID PRN 07/09/17 [History] Azelastine HCl [Astepro] 1 spray NASAL BID PRN 07/09/17 [History] Fluticasone Nasal [place] [Flonase Nasal [place]] 2 spr EA NOSTRIL DAILY 07/09/17 [History] Mometasone Furoate [Nasonex Nasal [place]] 2 spr EA NOSTRIL DAILY@1300 07/09/17 [History] Atorvastatin [Lipitor] 20 mg PO DAILY 01/06/18 [History] buPROPion HCL [Wellbutrin SR] 150 mg PO BID 01/06/18 [History] clonazePAM [KlonoPIN] 0.5 mg PO BID 01/06/18 [History] Albuterol Nebulized (Conc) [Ventolin Nebulized (Conc)] 2.5 mg INHALATION RT-QID PRN 01/15/18 [History] Cholecalciferol (Vitamin D3) [Vitamin D3] 10,000 unit PO DAILY 01/15/18 [History] Levothyroxine Sodium [Tirosint] 176 mcg PO QAM 01/15/18 [History] Levofloxacin [Levaquin] 500 mg PO DAILY 04/22/18 [History] Omeprazole 40 mg PO DAILY 04/22/18 [History] predniSONE 30 mg PO DAILY 04/22/18 [History] Omeprazole 40 mg PO DAILY #90 capsule. 04/23/18 [Rx] Follow up Appointment(s)/Referral(s): [facility] [[facility]] - 05/06/18 Patient Instructions/Handouts: Hiatal Hernia (DC) Discharge Disposition: HOME SELF-CARE
[2018-04-23 13:14] VITALS: BP 130/80; PULSE 75; RESP 18
== END 2018-04-23 13:12 | disposition home or self-care (01) ==
LOC: ORWHC2ENDO 10:01
PROVIDERS: ATTEND Surgery Plastic and Reconstructive Surgery
DX: K29.50 Unspecified chronic gastritis without bleeding (principal); K21.0 Gastro-esophageal reflux disease with esophagitis; E66.01 Morbid (severe) obesity due to excess calories; K44.9 Diaphragmatic hernia without obstruction or gangrene; J44.9 Chronic obstructive pulmonary disease, unspecified; M19.90 Unspecified osteoarthritis, unspecified site; M06.9 Rheumatoid arthritis, unspecified; E07.9 Disorder of thyroid, unspecified; Z96.653 Presence of artificial knee joint, bilateral; Z96.642 Presence of left artificial hip joint; Z87.891 Personal history of nicotine dependence; Z79.52 Long term (current) use of systemic steroids; Z79.890 Hormone replacement therapy; Z79.51 Long term (current) use of inhaled steroids; Z79.899 Other long term (current) drug therapy; Z88.6 Allergy status to analgesic agent; Z88.1 Allergy status to other antibiotic agents; Z88.5 Allergy status to narcotic agent; Z91.010 Allergy to peanuts; Z91.048 Other nonmedicinal substance allergy status; Z68.36 Body mass index [BMI] 36.0-36.9, adult
CPT/HCPCS: 88305; 43239; J2250; J2001; J2704

== ENCOUNTER → 2018-05-06 | Outpatient (CLI) | payer OTHER, MEDICARE ==
[2018-05-06 13:18] VITALS: BP 100/71; PULSE 69; TEMP 97.8; BMI 36.7
--- NOTE | 2018-05-06 13:47 | P.PN ---
Subjective Progress Note Date: 05/06/18 HPI: She is taking Nexium 40 mg in AM. She reports severe reflux disease now uncontrolled with medications. ABDOMEN: Tender along the epigastrium. No peritonitis. STUDIES: Esophogram reviewed demonstrates recurrent GERD new from prior studies following repair EGD: Comfirms recurrent hiatal hernia ASSESSMENT: 1. GERD 2. Morbid obesity PLAN: 1. Recommend acid diversion with sabina reconstruction for uncontrolled GERD. 2. Alternatively, may consider gastric bypass for current BMI over 35. 3. Zantac prescribed for night. Objective - Vital Signs Vital signs: Vital Signs Temp 97.8 F 05/06/18 13:16 Pulse 69 05/06/18 13:16 Resp BP 100/71 05/06/18 13:16 Pulse Ox Intake & Output 05/05/18 05/06/18 05/06/18 18:59 06:59 18:59 Weight 97.069 kg
== END ==
LOC: BARWHC3 12:45
PROVIDERS: ATTEND Surgery Plastic and Reconstructive Surgery
DX: E66.01 Morbid (severe) obesity due to excess calories (principal); K21.9 Gastro-esophageal reflux disease without esophagitis; Z68.36 Body mass index [BMI] 36.0-36.9, adult
CPT/HCPCS: 99211

== ENCOUNTER → 2018-10-30 | Outpatient (CLI) | payer OTHER, MEDICARE ==
[2018-10-30 12:22] VITALS: BP 135/86; PULSE 105; TEMP 98.5; BMI 38.9
--- NOTE | 2018-10-30 17:20 | P.PN ---
Subjective Progress Note Date: 10/30/18 DATE OF SERVICE: 10/30/2018 CHIEF COMPLAINT: Morbid obesity. HISTORY OF PRESENT ILLNESS: Jazmin Castañeda is a 58-year-old female who comes in with worsening asthma in the last 6 months. She has regained moderate weight. She reports severe reflux disease not controlled with Zantac and Nexium. She com es in with complications from her morbid obesity including hypertensive heart disease, spinal stenosis, and osteoarthritis of the lower back. She is looking into the gastric bypass for treatment of her gastroesophageal refux disease including morbid obesity and her hypertensive heart disease. At height of 5 feet 4 inches, her ideal body weight is 144 pounds. She comes in 227 pounds from 214 pounds, 6 months ago. She has gained 13 pounds in 6 months. Her body mass index is up to 39.0. PAST MEDICAL HISTORY: 1. Morbid obesity due to excess calories 2. Body mass index of 39.0 3. Hypothyroidism 4. Spinal stenosis 5. Osteoarthritis of the lower back. 6. Hypertensive heart disease. 7. Supraventricular tachycardia 8. Gastroesophageal reflux disease 9. Asthma 10. Anxiety disorder 11. Chronic obstructive pulmonary disorder 12. Rheumatoid arthritis PAST SURGICAL HISTORY: 1. Spinal fusion 2. Hysterectomy 3. Left hip replacement 4. Bilateral knee replacement 5. Blanca fundoplasty 6. Colonoscopy 7. Upper endoscopy 8. Nasal extraction polyp 9. Hiatal hernia repair HOME MEDICATIONS: ALLERGIES: Home Medications Medication Instructions Recorded Confirmed Type Cholecalciferol [Vitamin D3] 2,000 unit PO DAILY 09/29/13 11/27/17 History Furosemide 40 mg PO DAILY 09/29/13 11/27/17 History Levocetirizine Dihydrochloride 5 mg PO DAILY 09/29/13 11/27/17 History [Xyzal] Multivitamins, Thera [Multivitamin 1 tab PO DAILY 09/29/13 11/27/17 History (formulary)] Potassium Chloride [Klor-Con M10] 10 meq PO DAILY 09/29/13 11/27/17 History Fluticasone/Salmeterol [Advair 2 puff INHALATION DAILY 09/12/14 11/27/17 History 250-50 Diskus] Montelukast Sodium [Singulair] 10 mg PO HS 09/12/14 11/27/17 History Estradiol [Estrace] 1 mg PO DAILY 12/16/14 11/27/17 History rOPINIRole HCL [Requip] 2 mg PO HS 01/02/16 11/27/17 History Albuterol Sulfate [Proair Hfa] 2 puff INHALATION QID PRN 07/09/17 11/27/17 History Atenolol 25 mg PO DAILY 07/09/17 11/27/17 History Azelastine HCl [Astepro] 1 spray NASAL BID PRN 07/09/17 11/27/17 History Fluticasone Nasal [place] [Flonase 2 spr EA NOSTRIL DAILY 07/09/17 11/27/17 History Nasal [place]] Levothyroxine Sodium [Tirosint] 125 mcg PO QAM 07/09/17 11/27/17 History Mometasone Furoate [Nasonex Nasal 2 spr EA NOSTRIL 1300 07/09/17 11/27/17 History Levan] Allergies Allergy/AdvReac Type Severity Reaction Status Date / Time peanut Allergy Severe Anaphylaxis Verified 11/27/17 10:30 NSAIDS (Non-Steroidal Allergy Unknown Nausea & Verified 11/27/17 10:30 Anti-Inflamma Vomiting, Lightheaded., Has samters Triad. aspirin Allergy Has Verified 11/27/17 10:30 Samters Triad, Nausea & Vomiting cephalexin monohydrate Allergy Rash/Hives Verified 11/27/17 10:30 [From Keflex] ibuprofen Allergy Nausea & Verified 11/27/17 10:30 Vomiting, Lightheaded., Has Samters Triad. propoxyphene napsylate Allergy Nausea & Verified 11/27/17 10:30 [From Darvocet-N 100] Vomiting yeast Allergy Severe Anaphylaxis Uncoded 11/27/17 10:30 SOCIAL HISTORY: Past tobacco use. FAMILY HISTORY: No family history of ulcerative colitis disease or Crohn's disease. Family history of morbid obesity. No lupus in the family. No reports of stomach or esophageal cancer. REVIEW OF ORGAN SYSTEMS: CONSTITUTIONAL: At height of 5 feet 4 inches, her ideal body weight is 144 pounds. Was 227 pounds. Her body mass index is 39.0. HEENT: Denies any active troubles with vision or hearing. Has troubles with swallowing. ENDOCRINE: No diabetes. Has hypothyroidism. CARDIOVASCULAR: History of palpitations. No heart attacks or chest pain. RESPIRATORY: Has daytime somnolence. Has asthma. Has COPD. GI: Denies any bright red blood per rectum. No diarrhea. Has constipation. Now with recurrent gastroesophageal reflux disease. MUSCULOSKELETAL: Has lower back pain and joint pain. Has osteoarthritis of the knees. NEURO: No headaches. No seizure disorders. PSYCH: Has depression. No suicidal ideation. RHEUMATOLOGIC: No lupus. Has rheumatoid arthritis. HEMATOLOGIC: Denies any abnormal bleeding or bruising. No personal history of DVTs. SKIN: No rash. No skin cancer. PHYSICAL EXAM: VITAL SIGNS: Height 5 foot 4 inches, weight 227 pounds. BMI 39.0 Vital Signs Temp 98.5 F 10/30/18 12:20 Pulse 105 H 10/30/18 12:20 Resp BP 135/86 10/30/18 12:20 Pulse Ox GENERAL: Well-developed in no acute distress. HEENT: No scleral icterus. Extraocular movements grossly intact. Hears conversational speech. No nasal drainage. NECK: Supple without lymphadenopathy. CHEST: Nonlabored respirations with equal bilateral excursions. CARDIOVASCULAR: Tachycardia. Distal 2+ pulses. ABDOMEN: Obese, soft, nondistended. MUSCULOSKELETAL: No clubbing, cyanosis. No edema NEURO: No focal or lateralizing signs. Cranial nerves 2 through 12 grossly wi thin normal limits. PSYCH: Appropriate affect. Alert and oriented to person, place and time. SKIN: Good skin turgor. Well perfused. STUDIES: Esophogram images indepently reviewed demonstrates recurrent GERD new from prior studies following repair EGD FINDINGS: Squamocolumnar junction 38 cm from the incisors. Diaphragmatic hiatus at 40 cm. Hiatal hernia, 2 cm Hill grade 3 lower esophageal valve. LA grade C erosive esophagitis. No active duodenitis. Chronic gastritis ASSESSMENT: 1. Morbid obesity due to excess calories 2. Body mass index of 39.0 3. Hypothyroidism 4. Spinal stenosis 5. Osteoarthritis of the lower back. 6. Hypertensive heart disease. 7. Supraventricular tachycardia 8. Gastroesophageal reflux disease, unresolved and recurrent 9. Asthma 10. Anxiety disorder 11. Chronic obstructive pulmonary disorder 12. Rheumatoid arthritis 13. Recurrent hiatal hernia repair 14. Erosive esophagitis PLAN: 1. She is high risk for perioperative complications for a third surgery onto her actual stomach. She is at increased risks for leaks and strictures. Consent was reviewed. Patient was acceptable for proceeding with risks as described. 2. All questions and concerns were addressed with the patient. 3. An 8 page second-generation bariatric consent form was reviewed in detail including potential of bleeding, infection, leaks, adequate weight loss, nutritional deficiencies which the patient demonstrated understanding of the risks. 4. A 2 week high-protein low caloric 800 kcal diet described to address hepatomegaly. 5. Preoperative labs including complete metabolic panel and CBC with type and screen recommended. 6. DVT prophylaxis per [place] [facility]. 7. Antibiotic prophylaxis. 8. Inpatient hospitalization anticipated for more than 2 nights. Objective - Vital Signs Vital signs: Vital Signs Temp 98.5 F 10/30/18 12:20 Pulse 105 H 10/30/18 12:20 Resp BP 135/86 10/30/18 12:20 Pulse Ox Intake & Output 10/29/18 10/30/18 10/30/18 18:59 06:59 18:59 Weight 102.965 kg
== END | disposition home or self-care (01) ==
LOC: BARWHC3 09:29
PROVIDERS: ATTEND Surgery Plastic and Reconstructive Surgery
DX: E66.01 Morbid (severe) obesity due to excess calories (principal); E03.9 Hypothyroidism, unspecified; M48.00 Spinal stenosis, site unspecified; M47.816 Spondylosis without myelopathy or radiculopathy, lumbar region; I11.9 Hypertensive heart disease without heart failure; I47.1 Supraventricular tachycardia; K21.9 Gastro-esophageal reflux disease without esophagitis; F41.9 Anxiety disorder, unspecified; J44.9 Chronic obstructive pulmonary disease, unspecified; M06.9 Rheumatoid arthritis, unspecified; K22.10 Ulcer of esophagus without bleeding; Z68.39 Body mass index [BMI] 39.0-39.9, adult; Z87.891 Personal history of nicotine dependence; Z98.1 Arthrodesis status; Z96.642 Presence of left artificial hip joint; Z96.653 Presence of artificial knee joint, bilateral; Z90.710 Acquired absence of both cervix and uterus; Z98.890 Other specified postprocedural states; Z79.899 Other long term (current) drug therapy; Z88.1 Allergy status to other antibiotic agents; Z88.6 Allergy status to analgesic agent; Z88.8 Allergy status to other drugs, medicaments and biological substances
CPT/HCPCS: 99211

== ENCOUNTER → 2018-12-15 | Outpatient (CLI) | payer OTHER, MEDICARE ==
[2018-12-15 10:04] VITALS: BP 112/76; PULSE 102; TEMP 98.2; BMI 38.9
== END | disposition home or self-care (01) ==
LOC: BARWHC3 09:32
PROVIDERS: ATTEND Surgery Plastic and Reconstructive Surgery
DX: E66.01 Morbid (severe) obesity due to excess calories (principal)
CPT/HCPCS: 99211

== ENCOUNTER → 2018-12-15 | Outpatient (CLI) | payer OTHER, MEDICARE ==
[2018-12-15 11:32] LABS: ALT 29 U/L (9-52); AST 27 U/L (14-36); African American GFR (CKD) >90 (>60 ml/min/1.73 sqM); Albumin 4.4 g/dL (3.5-5.0); Alkaline Phosphatase 90 U/L (38-126); Anion Gap 12 mmol/L; Blood Urea Nitrogen 10 mg/dL (7-17); Calcium 9.6 mg/dL (8.4-10.2); Carbon Dioxide 28 mmol/L (22-30); Chloride 103 mmol/L (98-107); Glucose 99 mg/dL (74-99); Non-African American GFR(CKD) >90 (>60 ml/min/1.73 sqM); Potassium 3.8 mmol/L (3.5-5.1); Sodium 143 mmol/L (137-145); Total Bilirubin 0.7 mg/dL (0.2-1.3); Total Protein 7.4 g/dL (6.3-8.2)
[2018-12-15 11:44] LABS: Basophils # (A) 0.1 k/uL (0-0.2); Basophils % (A) 2 %; Eosinophils # (A) 0.6 k/uL (0-0.7); Eosinophils % (A) 7 %; HCT 42.6 % (34.0-46.0); HGB 14.2 gm/dL (11.4-16.0); Lymphocytes # (A) 2.5 k/uL (1.0-4.8); Lymphocytes % (A) 30 %; MCH 28.8 pg (25.0-35.0); MCHC 33.3 g/dL (31.0-37.0); MCV 86.7 fL (80.0-100.0); Mean Platelet Volume 6.3; Monocytes # (A) 0.4 k/uL (0-1.0); Monocytes % (A) 5 %; Neutrophils # (A) 4.6 k/uL (1.3-7.7); Neutrophils % (A) 55 %; Platelet Count 324 k/uL (150-450); RBC 4.92 m/uL (3.80-5.40); RDW 13.8 % (11.5-15.5); WBC 8.4 k/uL (3.8-10.6)
== END | disposition home or self-care (01) ==
LOC: LABWHC1 10:07
PROVIDERS: ATTEND Surgery Plastic and Reconstructive Surgery
DX: Z01.818 Encounter for other preprocedural examination (principal); Z01.812 Encounter for preprocedural laboratory examination
CPT/HCPCS: 36415; 80053; 85025; 86850; 86900; 86901; 93005

== ENCOUNTER 2018-12-21 11:25 | Inpatient (IN) | payer OTHER, MEDICARE ==
--- NOTE | 2018-12-20 19:52 | P.GSHP ---
History of Present Illness H&P Date: 12/21/18 DATE OF SERVICE: 12/21/2018 CHIEF COMPLAINT: Morbid obesity. HISTORY OF PRESENT ILLNESS: Jazmin Castañeda is a 58-year-old female who comes in with severe reflux disease not controlled with Zantac and Nexium. She comes in with complications from her morbid obesity including hypertensive heart disease, spinal stenosis, and osteoarthritis of the lower back. She is looking into the gastric bypass for treatment of her gastroesophageal refux disease including morbid obesity and her hypertensive heart disease. At height of 5 feet 4 inches, her ideal body weight is 144 pounds. She comes in 227 pounds. Her body mass index is up to 39.0. PAST MEDICAL HISTORY: 1. Morbid obesity due to excess calories 2. Body mass index of 39.0 3. Hypothyroidism 4. Spinal stenosis 5. Osteoarthritis of the lower back. 6. Hypertensive heart disease. 7. Supraventricular tachycardia 8. Gastroesophageal reflux disease 9. Asthma 10. Anxiety disorder 11. Chronic obstructive pulmonary disorder 12. Rheumatoid arthritis PAST SURGICAL HISTORY: 1. Spinal fusion 2. Hysterectomy 3. Left hip replacement 4. Bilateral knee replacement 5. Emir fundoplasty 6. Colonoscopy 7. Upper endoscopy 8. Nasal extraction polyp 9. Hiatal hernia repair HOME MEDICATIONS: ALLERGIES: Home Medications Medication Instructions Recorded Confirmed Type Cholecalciferol [Vitamin D3] 2,000 unit PO DAILY 09/29/13 11/27/17 History Furosemide 40 mg PO DAILY 09/29/13 11/27/17 History Levocetirizine Dihydrochloride 5 mg PO DAILY 09/29/13 11/27/17 History [Xyzal] Multivitamins, Thera [Multivitamin 1 tab PO DAILY 09/29/13 11/27/17 History (formulary)] Potassium Chloride [Klor-Con M10] 10 meq PO DAILY 09/29/13 11/27/17 History Fluticasone/Salmeterol [Advair 2 puff INHALATION DAILY 09/12/14 11/27/17 History 250-50 Diskus] Montelukast Sodium [Singulair] 10 mg PO HS 09/12/14 11/27/17 History Estradiol [Estrace] 1 mg PO DAILY 12/16/14 11/27/17 History rOPINIRole HCL [Requip] 2 mg PO HS 01/02/16 11/27/17 History Albuterol Sulfate [Proair Hfa] 2 puff INHALATION QID PRN 07/09/17 11/27/17 History Atenolol 25 mg PO DAILY 07/09/17 11/27/17 History Azelastine HCl [Astepro] 1 spray NASAL BID PRN 07/09/17 11/27/17 History Fluticasone Nasal [place] [Flonase 2 spr EA NOSTRIL DAILY 07/09/17 11/27/17 History Nasal [place]] Levothyroxine Sodium [Tirosint] 125 mcg PO QAM 07/09/17 11/27/17 History Mometasone Furoate [Nasonex Nasal 2 spr EA NOSTRIL 1300 07/09/17 11/27/17 History [place]] Allergies Allergy/AdvReac Type Severity Reaction Status Date / Time peanut Allergy Severe Anaphylaxis Verified 11/27/17 10:30 NSAIDS (Non-Steroidal Allergy Unknown Nausea & Verified 11/27/17 10:30 Anti-Inflamma Vomiting, Lightheaded., Has samters Triad. aspirin Allergy Has Verified 11/27/17 10:30 Samters Triad, Nausea & Vomiting cephalexin monohydrate Allergy Rash/Hives Verified 11/27/17 10:30 [From Keflex] ibuprofen Allergy Nausea & Verified 11/27/17 10:30 Vomiting, Lightheaded., Has Samters Triad. propoxyphene napsylate Allergy Nausea & Verified 11/27/17 10:30 [From Darvocet-N 100] Vomiting yeast Allergy Severe Anaphylaxis Uncoded 11/27/17 10:30 SOCIAL HISTORY: Past tobacco use. FAMILY HISTORY: No family history of ulcerative colitis disease or Crohn's disease. Family history of morbid obesity. No lupus in the family. No reports of stomach or esophageal cancer. REVIEW OF ORGAN SYSTEMS: CONSTITUTIONAL: At height of 5 feet 4 inches, her ideal body weight is 144 pounds. Was 227 pounds. Her body mass index is 39.0. HEENT: Denies any active troubles with vision or hearing. Has troubles with swallowing. ENDOCRINE: No diabetes. Has hypothyroidism. CARDIOVASCULAR: History of palpitations. No heart attacks or chest pain. RESPIRATORY: Has daytime somnolence. Has asthma. Has COPD. GI: Denies any bright red blood per rectum. No diarrhea. Has constipation. Now with recurrent gastroesophageal reflux disease. MUSCULOSKELETAL: Has lower back pain and joint pain. Has osteoarthritis of the knees. NEURO: No headaches. No seizure disorders. PSYCH: Has depression. No suicidal ideation. RHEUMATOLOGIC: No lupus. Has rheumatoid arthritis. HEMATOLOGIC: Denies any abnormal bleeding or bruising. No personal history of DVTs. SKIN: No rash. No skin cancer. PHYSICAL EXAM: VITAL SIGNS: Height 5 foot 4 inches, weight 227 pounds. BMI 39.0 GENERAL: Well-developed in no acute distress. HEENT: No scleral icterus. Extraocular movements grossly intact. Hears conversational speech. No nasal drainage. NECK: Supple without lymphadenopathy. CHEST: Nonlabored respirations with equal bilateral excursions. CARDIOVASCULAR: Tachycardia. Distal 2+ pulses. ABDOMEN: Obese, soft, nondistended. MUSCULOSKELETAL: No clubbing, cyanosis. No edema NEURO: No focal or lateralizing signs. Cranial nerves 2 through 12 grossly within normal limits. PSYCH: Appropriate affect. Alert and oriented to person, place and time. SKIN: Good skin turgor. Well perfused. STUDIES: Esophogram images indepently reviewed demonstrates recurrent GERD new from prior studies following repair EGD FINDINGS: Squamocolumnar junction 38 cm from the incisors. Diaphragmatic hiatus at 40 cm. Hiatal hernia, 2 cm Hill grade 3 lower esophageal valve. LA grade C erosive esophagitis. No active duodenitis. Chronic gastritis ASSESSMENT: 1. Morbid obesity due to excess calories 2. Body mass index of 39.0 3. Hypothyroidism 4. Spinal stenosis 5. Osteoarthritis of the lower back. 6. Hypertensive heart disease. 7. Supraventricular tachycardia 8. Gastroesophageal reflux disease, unresolved and recurrent 9. Asthma 10. Anxiety disorder 11. Chronic obstructive pulmonary disorder 12. Rheumatoid arthritis 13. Recurrent hiatal hernia repair 14. Erosive esophagitis PLAN: 1. She is high risk for perioperative complications for a third surgery onto her actual stomach. She is at increased risks for leaks and strictures. Consent was reviewed. Patient was acceptable for proceeding with risks as described. 2. All questions and concerns were addressed with the patient. 3. An 8 page second-generation bariatric consent form was reviewed in detail including potential of bleeding, infection, leaks, adequate weight loss, nutritional deficiencies which the patient demonstrated understanding of the risks. 4. A 2 week high-protein low caloric 800 kcal diet described to address hepatomegaly. 5. Preoperative labs including complete metabolic panel and CBC with type and screen recommended. 6. DVT prophylaxis per [place] [facility]. 7. Antibiotic prophylaxis. 8. Inpatient hospitalization anticipated for more than 2 nights. Past Medical History Past Medical History: Asthma, COPD, GERD/Reflux, Hyperlipidemia, Hypertension, Osteoarthritis (OA), Rheumatoid Arthritis (RA), Supraventricular Tachycardia (SVT), Thyroid Disorder Additional Past Medical History / Comment(s): current tx bronchitis,and increased reflux,SPINAL STENOSIS, IODINE TX FOR THYROID, ENVIRONMENTAL ALLERGIES History of Any Multi-Drug Resistant Organisms: None Reported Past Surgical History: Back Surgery, Cardiac Ablation, EPS, Hernia Repair, Hysterectomy, Joint Replacement, Orthopedic Surgery Additional Past Surgical History / Comment(s): COLONOSCOPY, SPINAL FUSION, EMIR FUNDOPLICATION, left hip replacment, summer knee replacements, nasal polyps x6, EGD Past Anesthesia/Blood Transfusion Reactions: Motion Sickness Past Psychological History: Anxiety Smoking Status: Former smoker Past Alcohol Use History: None Reported Additional Past Alcohol Use History / Comment(s): SMOKED since 1997, 1/ PPD,. No ETOH. No drugs abuse Past Drug Use History: None Reported - Past Family History Father Family Medical History: Cancer Mother Family Medical History: No Reported History Medications and Allergies Home Medications Medication Instructions Recorded Confirmed Type Furosemide 40 mg PO DAILY 09/29/13 12/15/18 History Levocetirizine Dihydrochloride 5 mg PO DAILY 09/29/13 12/15/18 History [Xyzal] Multivitamins, Thera [Multivitamin 1 tab PO DAILY 09/29/13 12/15/18 History (formulary)] Potassium Chloride [Klor-Con M10] 10 meq PO DAILY 09/29/13 12/15/18 History Montelukast Sodium [Singulair] 10 mg PO HS 09/12/14 12/15/18 History Albuterol Sulfate [Proair Hfa] 2 puff INHALATION RT-QID PRN 07/09/17 12/15/18 History Azelastine HCl [Astepro] 1 spray NASAL BID PRN 07/09/17 12/15/18 History Fluticasone Nasal [place] [Flonase 2 spr EA NOSTRIL DAILY 07/09/17 12/15/18 Histo ry Nasal [place]] Mometasone Furoate [Nasonex Nasal 2 spr EA NOSTRIL DAILY@1300 07/09/17 12/15/18 History [place]] Atorvastatin [Lipitor] 20 mg PO DAILY 01/06/18 12/15/18 History clonazePAM [KlonoPIN] 0.5 mg PO BID 01/06/18 12/15/18 History Albuterol Nebulized (Conc) 2.5 mg INHALATION RT-QID PRN 01/15/18 12/15/18 History [Ventolin Nebulized (Conc)] Cholecalciferol (Vitamin D3) 10,000 unit PO DAILY 01/15/18 12/15/18 History [Vitamin D3] Levothyroxine Sodium [Tirosint] 176 mcg PO QAM 01/15/18 12/15/18 History Omeprazole 40 mg PO DAILY 04/22/18 12/15/18 History Ranitidine HCl [Zantac] 150 mg PO HS #30 tab 05/06/18 12/15/18 Rx Calcium Carbonate/Vitamin D3 2 each PO DAILY 12/15/18 12/15/18 History [Calcium 500-Vit D3 600 Tablet] Docusate [Colace] 200 mg PO HS 12/15/18 12/15/18 History Ferrous Sulfate [Feosol] 325 mg PO DAILY 12/15/18 12/15/18 History Fluticasone/Vilanterol [Breo 1 inhalation INHALATION DAILY 12/15/18 12/15/18 History Ellipta 200-25 Mcg INH] Lisinopril [Zestril] 10 mg PO DAILY 12/15/18 12/15/18 History Vitamin A Acetate [Vitamin A] 10,000 unit SL DAILY 12/15/18 12/15/18 History Allergies Allergy/AdvReac Type Severity Reaction Status Date / Time peanut Allergy Severe Anaphylaxis Verified 12/15/18 15:17 NSAIDS (Non-Steroidal Allergy Unknown Nausea & Verified 12/15/18 15:17 Anti-Inflamma Vomiting, Lightheaded., Has samters Triad. aspirin Allergy Has Verified 12/15/18 15:17 Samters Triad, Nausea & Vomiting cephalexin monohydrate Allergy Rash/Hives Verified 12/15/18 15:17 [From Keflex] ibuprofen Allergy Nausea & Verified 12/15/18 15:17 Vomiting, Lightheaded., Has Samters Triad. propoxyphene napsylate Allergy Nausea & Verified 12/15/18 15:17 [From Darvocet-N 100] Vomiting yeast Allergy Severe congestion Uncoded 12/15/18 15:17
[~2018-12-21 11:25] MED LIST changes: +CHLORHEXIDINE GLUCONATE 15 ML CUP MUCOUS MEM ONE; +ENOXAPARIN 40 MG/0.4 ML SYRINGE SQ STA; +GENTAMICIN 400 MG in SODIUM CHLORIDE 0.9% 100 ML IVPB ONE; +HYDROmorphone 0.5 MG/0.5 ML SYRINGE IVP PRN; -LIDOCAINE 1% 20 ML VIAL (10MG/ML) FOR IV START INTRADERMA PRN; +MIDAZOLAM 2 MG/2 ML VIAL IV PRN; +PANTOPRAZOLE 40 MG/10 ML VIAL IV STA
[2018-12-21] MEDS: LACTATED RINGERS 1,000 ML IV SCH (11:59)
[2018-12-21] MEDS ORDERED: LIDOCAINE 1% 20 ML VIAL (10MG/ML) FOR IV START INTRADERMA ONE (11:59)
[2018-12-21] MEDS ORDERED: fentaNYL (PF) 50 MCG/ML 2 ML AMP IV ONE (12:18)
--- NOTE | 2018-12-21 12:34 | P.HPADDEND ---
H&P Addendum H&P Addendum Date: 12/21/18 Benefits and risks of surgery described. Patient has increased risk for surgical complications from multiple stomach surgeries. Patient willing to proceed with gastric bypass to address her recurrent reflux disease and morbid obesity.
--- NOTE | 2018-12-21 12:38 | P.ANPRN ---
Procedure Note - Anesthesia - Nerve Block Performed Bilateral Transversus Abdominis Single Time Out Performed: Yes Date of Procedure: 12/21/18 Procedure Start Time: 12:18 Procedure Stop Time: 12:33 Location of Patient Procedure: PreOp Indication: Requested by Surgeon Specifically requested for management of pain by DrMireya: Alisha Villalobos Sedation Type: Sedate with meaningful contact maintained Preparation: Sterile Prep Position: Supine Needle Types: Pajunk Needle Gauge: 21 Ultrasound used to visualize needle placement: Yes Ultrasound used to observe medication spread: Yes Injectate: 0.5% Ropivacaine (see comment for volume) (20 ml each side plus 4 mg Dexamethason) Blood Aspirated: No Pain Paresthesia on Injection Noted: No Resistance on Injection: Normal Image Stored and Saved: Yes Events: Uneventful and Well Tolerated
[2018-12-21] MEDS ORDERED: LIDOCAINE 1%-EPI 1:100,000 20 ML VIAL SQ ONE (13:15)
[2018-12-21] MEDS ORDERED: LACTATED RINGERS 1,000 ML IV ONE ×2 (14:35→15:50)
[2018-12-21] MEDS ORDERED: NALOXONE 0.4 MG/ML 1 ML VIAL IV PRN (16:20)
[2018-12-21] MEDS ORDERED: HYDROcodone/APAP 15 ML SOLUTION PO PRN (16:20)
--- NOTE | 2018-12-21 16:36 | P.OP ---
Date of Procedure: 12/21/18 Description of Procedure: SURGEON: MARILYN SANCHES MD PREOPERATIVE DIAGNOSES: 1. Morbid obesity due to excess calories 2. Body mass index of 39.0 3. Hypothyroidism 4. Spinal stenosis 5. Osteoarthritis of the lower back. 6. Hypertensive heart disease. 7. Supraventricular tachycardia 8. Gastroesophageal reflux disease, unresolved and recurrent 9. Asthma 10. Anxiety disorder 11. Chronic obstructive pulmonary disorder 12. Rheumatoid arthritis 13. Recurrent hiatal hernia repair 14. Erosive esophagitis POSTOPERATIVE DIAGNOSES: 1. Morbid obesity due to excess calories 2. Body mass index of 39.0 3. Hypothyroidism 4. Spinal stenosis 5. Osteoarthritis of the lower back. 6. Hypertensive heart disease. 7. Supraventricular tachycardia 8. Gastroesophageal reflux disease, unresolved and recurrent 9. Asthma 10. Anxiety disorder 11. Chronic obstructive pulmonary disorder 12. Rheumatoid arthritis 13. Recurrent hiatal hernia repair 14. Erosive esophagitis 15. Left inguinal hernia, initial OPERATION: 1. Robotic assisted da Yissel Xi laparoscopic Sabina-en-Y gastric bypass, 75 cm antecolic antegastric Sabina limb, with 25 mm EEA. 2. Intraoperative esophagogastrojejunoscopy. ANESTHESIA: GETA and local ESTIMATED BLOOD LOSS: 5 mL SPECIMENS REMOVED: None. COMPLICATIONS: NONE. INDICATIONS: Jazmin Castañeda is a 58-year-old female who comes in with severe recurrent reflux disease not controlled with Zantac and Nexium. She comes in with complications from her morbid obesity including hypertensive heart disease, spinal stenosis, and osteoarthritis of the lower back. She is looking into the gastric bypass for treatment of her gastroesophageal refux disease including morbid obesity and her hypertensive heart disease. At height of 5 feet 4 inches, her ideal body weight is 144 pounds. She comes in 224 pounds. Her body mass index is 38.6.. DESCRIPTION: The patient was brought into the operating room theater. She was placed supine. She had received Lovenox subcutaneously for DVT prophylaxis. Additionally she Peridex oral solution as an oral decontaminant was placed per anesthesia. After general induction, the abdomen was prepped and draped in standard sterile fashion. Ioban draping was placed along the abdomen. A robotic da Yissel Xi system was prepped and primed. The xiphoid to umbilicus was measured of 15 cm adding moderate complexity to the case, at least of 30 minutes more limiting arm length and maneuver of equipment. Incisions were proposed at 14 cm from the xiphoid. Proposed port sites were marked with indelible marker along the anterior axillary line bilaterally, mid clavicular line bilaterally with each port marked 10 cm from each other. The robotic stapler port was marked for the right midclavicular line including along the left midclavicular line. A 5 mm 0 degrees laparoscopic trocar entry was performed along the left upper quadrant. The abdomen was insufflated to 15 mmHg pressure, which she tolerated well. Diagnostic laparoscopy demonstrated no injury to bowel, viscera, or mesentery. The liver was smooth and unremarkable. Very small loose hiatus identified. An 8 mm camera port was placed left lateral to the umbilicus at the epigastrium, 15 cm distal to the xiphoid. Next, 12-mm robot stapler port was placed along the right mid abdomen. An 12 mm port was exchanged along the left upper quadrant. An 8 mm port was placed on the left lateral abdominal wall under direct visualization Please note that the ports were placed 18 to 20 cm away from the target anatomy of the stomach. Care was taken to check that each robotic arm was safely away from collision with the bed or the patient. At the epigastrium, a medium sized Mark liver retractor was placed under direct visualization with the Iron Certified Professional Ergonomist placed under the right shoulder of the patient. The patient was repositioned in reverse Trendelenburg position at 20-degrees after lowering the bed. The robot was docked over the patient. Using grasper for arm 3, a grasper for arm 1, including vessel sealer for arm 4, the robotic system was docked and primed as described. Instruments were interchanged by the regional administrative assistant including endoscissors, the needle ems driver, and stapler. I had sat at the console. Next, the transverse mesocolon was reflected into the upper abdomen after dividing the mesentery and preparing for the jejunojejunostomy portion of the case. The ligament of Treitz was identified and measured 60 cm antegrade and marked us ing 3-0 Silk. The jejunum was divided at the 60 cm point using 60-mm white loads above the suture measurement. The biliopancreatic limb was held in place. The Sabina limb was measured 75 cm in an antegrade fashion to avoid tension along the proposed gastrojejunal anastomosis. At 75 cm along the anti-mesenteric border of the Sabina limb, a jejunojejunostomy was proposed whereby enterotomies were created along the biliopancreatic limb including the Sabina limb using a Bovie cautery. A stay suture of 3-0 Slik was placed to align and create the anastomosis. The enterotomies along the anti-mesenteric borders were created followed by unidirectional fire from the patient's right side using 60 mm blue load Smart technology robotic stapler. The jejunojejunostomy was found to be hemostatic. The enterotomy was closed after horizontal mattress stitch of 3-0 silk used to elevate the enterotomy followed by closure with the robotic stapler blue load. The jejunal limb was temporarily tacked along the left upper quadrant. Attention was now brought to the creation of the gastrojejunostomy. Along the lesser curvature of the stomach between the second and third veins, dissection was made along the retrogastric space to allow first firing of the robotic staple. Blue loads of 60 mm staplers were used to divide the stomach to create the gastric pouch. The patient was then prepared for placement of a Orvil. The patient was Mallampati 2. A 25-mm Orvil was selected for placement by the nurse chip frier. The Orvil tubing was placed anterior to the staple line of the gastric pouch and brought out through the left inferior lateral port. I re-scrubbed into the case. The robotic arms were temporarily undocked. The Orvil was then carefully and successfully navigated with the help of the nurse chip frier into the gastric pouch. The sutures were identified and divided. The tubing was from the 25 mm anvil. As the Orvil had been placed, the blind jejunal limb was brought proximally into the upper abdomen. No torsion was found upon the Sabina limb. Mild tension was identified as the limb was brought along the upper abdomen. The blind jejunal limb was previously opened using hook cautery. The 25-mm EEA stapler was brought through the left anterior lateral port site from the left side. The EEA stapler was brought through the open jejunal limb and its needle was deployed at the antimesenteric border where the anvil were mated for approximately 1 minute upon firing. The stapler was removed after irrigating the shaft of the instrument with warm normal saline. Donuts were found to be intact and on both sides. The da Yissel Xi robot arms were then re-docked. I sat at the console. The open jejunal limb defect was closed using 60 mm blue loads after releasing any tension from the blind jejunal limb. Care was taken to avoid any long blind limb to avoid candycane syndrome. Reinforcement sutures were placed along the gastrojejunal anastomosis and placed along the 9:00 and 3 o'clock position using 3-0 Vicryl. The Denny and jejunojejunostomy mesenteric defects were obliterated by her intra-abdominal fat. I then went to the head of the bed to perform the esophagogastrojejunoscopy and a leak test. An Olympus gastroscope was passed along the posterior oropharynx which was unremarkable for any injury to the vocal cords. The scope was passed down to the proximal portion of the pouch, whereby no active bleeding was encountered. Excellent visualization of the gastrojejunostomy anastomosis, including the Sabina limb was encountered with endoscopic image obtained. The anastomosis was found to be patent. The gastrointestinal tract was desufflated. No evidence of intraoperative leak was encountered as the gastric pouch and anastomosis were submerged under normal saline solution. The robot was then undocked. I then went back to the bedside of the patient, whereby with coordinated effort of the regional administrative assistant, irrigation was aspirated from the upper abdominal cavity. Tisseel was placed circumferentially over the anastomosis of the gastrojejunostomy. Despite, investigation of the lower pelvis, upper abdomen, the small bowel enterectomy of 1 cm was retained. All instruments and pneumoperitoneum were evacuated from the abdominal cavity. The port correlating with the EEA stapler device was cleansed with normal saline solution and hydrogen peroxide. The rest of incisions were reapproximated using 4-0 Monocryl in an interrupted subcuticular fashion. Local anesthetic was infiltrated along the skin for postop analgesia. Liquid glue was applied to the skin. OptiFoam dressing was placed along the EEA stapler site. At the end of the procedure, needle, sponge and instrument count had been verified correct by the electrocardiogram technician. He had tolerated the procedure well and was extubated and taken to the postanesthesia unit in stable condition. Intraoperative findings were described to the patient's family who were very pleased with the level of care. Total console time 95 minutes Operative Findings: 1. Biliopancreatic limb 60 cm 2. Bypass performed using 75 cm sabina limb secondary to avoid increased tension at 100 cm. 3. Torres defect and jejunojejunostomy defect obliterated by moderate intra- abdominal fat. 4. Leak test negative with gastrojejunal anastomosis patent and hemostatic. 5. Reinforcement sutures were placed along the gastrojejunal anastomosis 6. No fatty liver disease with hepatomegaly 7. Very small loose hiatus. 8. Limited intra-abdominal space adding extra 30 minutes to case.
[2018-12-21] MEDS ORDERED: HYDROmorphone 1 MG/ML 1 ML SYRINGE IVP ONE (18:05)
[2018-12-21] MEDS: ACETAMINOPHEN IV (For NPO) 1,000 MG in EMPTY BAG 1 BAG IVPB ONE ×2 (18:43→18:58)
[2018-12-21] MEDS: HYDROmorphone PCA 10 MG/50 ML BAG IV PRN (19:39)
[2018-12-21] MEDS: ALBUTEROL NEBULIZED 2.5 MG/3 ML INHALATION SCH (20:42)
[2018-12-21] MEDS: 0.9% NACL WITH KCL 20 MEQ/L 1,000 ML IV SCH (21:30)
[2018-12-21] MEDS: HYOSCYAMINE ORAL DROPS 1.875 MG/15 ML BOTTLE PO SCH ×2 (21:31→23:46)
[2018-12-21] MEDS: SIMETHICONE 40 MG/0.6 ML DROPS 2,000 MG/30 ML BOTTLE PO SCH ×2 (21:32→23:46)
[2018-12-21] MEDS: MONTELUKAST 10 MG TAB PO SCH (21:33)
[2018-12-21] MEDS: ONDANSETRON 4 MG/2 ML VIAL IVP PRN (21:33)
[2018-12-22] MEDS: 0.9% NACL WITH KCL 20 MEQ/L 1,000 ML IV SCH ×2 (02:11→05:13)
[2018-12-22] MEDS: ENOXAPARIN 40 MG/0.4 ML SYRINGE SQ SCH (02:28)
[2018-12-22] MEDS: diphenhydrAMINE 50 MG/ML 1 ML VIAL IVP PRN ×4 (02:34→20:01)
[2018-12-22] MEDS: HYOSCYAMINE ORAL DROPS 1.875 MG/15 ML BOTTLE PO SCH ×4 (05:14→23:28)
[2018-12-22] MEDS: SIMETHICONE 40 MG/0.6 ML DROPS 2,000 MG/30 ML BOTTLE PO SCH ×4 (05:14→23:28)
[2018-12-22] MEDS: LACTATED RINGERS 1,000 ML IV SCH (05:18)
[2018-12-22 07:29] LABS: Basophils % (A) 0 %; Eosinophils % (A) 0 %; HCT 38.9 % (34.0-46.0); HGB 12.3 gm/dL (11.4-16.0); Lymphocytes # (A) 1.3 k/uL (1.0-4.8); Lymphocytes % (A) 11 %; MCHC 31.6 g/dL (31.0-37.0); MCV 88.7 fL (80.0-100.0); Mean Platelet Volume 6.3; Monocytes # (A) 0.6 k/uL (0-1.0); Monocytes % (A) 5 %; Neutrophils # (A) 9.9 k/uL (1.3-7.7); Neutrophils % (A) 82 %; Platelet Count 262 k/uL (150-450); RBC 4.39 m/uL (3.80-5.40); RDW 13.8 % (11.5-15.5)
[2018-12-22 07:57] LABS: African American GFR (CKD) >90 (>60 ml/min/1.73 sqM); Anion Gap 7 mmol/L; Blood Urea Nitrogen 12 mg/dL (7-17); Calcium 8.8 mg/dL (8.4-10.2); Carbon Dioxide 28 mmol/L (22-30); Chloride 107 mmol/L (98-107); Magnesium 2.1 mg/dL (1.6-2.3); Phosphorus 4.2 mg/dL (2.5-4.5); Potassium 4.8 mmol/L (3.5-5.1); Sodium 142 mmol/L (137-145)
[2018-12-22] MEDS: ALBUTEROL NEBULIZED 2.5 MG/3 ML INHALATION SCH ×4 (08:21→20:21)
[2018-12-22] MEDS: SYMBICORT 160-4.5 MCG INHALER INHALATION SCH ×2 (08:21→20:20)
[2018-12-22] MEDS: LISINOPRIL 10 MG TAB PO SCH (08:31)
[2018-12-22] MEDS: ONDANSETRON 4 MG/2 ML VIAL IVP PRN (08:31)
[2018-12-22] MEDS: PANTOPRAZOLE 40 MG/10 ML VIAL IV SCH (08:31)
[2018-12-22] MEDS: HYDROmorphone PCA 10 MG/50 ML BAG IV PRN ×2 (09:03→22:49)
[2018-12-22] MEDS: 1: MVI, ADULT NO.4 WITH VIT K 10 ML, THIAMINE 100 MG, FOLIC ACID 1 MG, POTASSIUM CHLORID IV SCH ×12 (10:04→21:46)
[2018-12-22] MEDS: LEVOFLOXACIN 750MG-D5W PMX 750 MG in DEXTROSE/WATER 1 150ML.BAG IVPB SCH (10:04)
[2018-12-22 11:31] VITALS: BMI 38.6
--- NOTE | 2018-12-22 13:53 | P.PN ---
<Kylie Ernst Chandan - Last Filed: 12/22/18 13:45> Subjective Progress Note Date: 12/22/18 CHIEF COMPLAINT: Morbid obesity HISTORY OF PRESENT ILLNESS: 58-year-old female who underwent robotic-assisted laparoscopic Tressa-en-Y gastric bypass. Postop day #1. Patient reports her pain is tolerable. Tolerating clear liquid diet. Denies nausea. Vital signs stable. She is afebrile. PHYSICAL EXAM: VITAL SIGNS: Currently stable. GENERAL: Well-developed in no acute distress. HEENT: No sclera icterus. Extraocular movements grossly intact. Moist buccal mucosa. Head is atraumatic, normocephalic. Hears conversational speech. No nasal drainage. NECK: Supple without lymphadenopathy. CHEST: Non-labored respirations and equal bilateral excursions. CARDIOVASCULAR: Regular rate with regular rhythm. Palpable 2+ radial pulses. ABDOMEN: Soft. Nondistended. Appropriate surgical tenderness. Surgical sites clean and intact without drainage. MUSCULOSKELETAL: No clubbing, cyanosis or edema. NEUROLOGIC: No focal or lateralizing signs. Cranial nerves II through XII grossly intact. PSYCH: Appropriate affect. Alert and oriented to person, place and time. SKIN: Well perfused. Good skin turgor. ASSESSMENT: 1. Morbid obesity due to excess calories 2. Body mass index of 39.0 3. Hypothyroidism 4. Spinal stenosis 5. Osteoarthritis of the lower back. 6. Hypertensive heart disease. 7. Supraventricular tachycardia 8. Gastroesophageal reflux disease, unresolved and recurrent 9. Asthma 10. Anxiety disorder 11. Chronic obstructive pulmonary disorder 12. Rheumatoid arthritis 13. Recurrent hiatal hernia repair 14. Erosive esophagitis 15. Left inguinal hernia, initial PLAN: 1. Patients antibiotics discontinued yesterday due to possible allergic reaction. Begin Levaquin 750mg IVPB daily. Patient will be discharged home on Levaquin for 1 week at discharge per Dr. Villalobos 2. Continue clear liquid diet 3. Pain control 4. Incentive spirometry 5. Increase activity as tolerated 6. Anticipate discharge home tomorrow Nurse practitioner note has been reviewed by physician. Signing provider agrees with the documented findings, assessment, and plan of care. Objective - Vital Signs Vital signs: Vital Signs Temp 98.0 F 12/22/18 07:30 Pulse 71 12/22/18 07:30 Resp 15 12/22/18 07:30 BP 112/68 12/22/18 07:30 Pulse Ox 97 12/22/18 08:17 Intake & Output 12/21/18 12/22/18 12/22/18 18:59 06:59 18:59 Intake Total 2866 1500 Output Total 5 300 Balance 2861 1200 Weight 102 kg 102 kg Intake: IV 2866 Intake, IV Titration 1500 Amount 0.9% NaCl with KCl 20 Meq 1500 /l 1,000 ml @ 150 mls/hr IV .[id number] [facility] Rx#: [id number] Output: Urine 300 Estimated Blood Loss 5 Other: # Voids 1 - Labs CBC & Chem 7: 12/22/18 06:55 12/22/18 06:55 Labs: Abnormal Lab Results - Last 24 Hours (Table) 12/22/18 Range/Units 06:55 WBC 12.0 H (3.8-10.6) k/uL Neutrophils # 9.9 H (1.3-7.7) k/uL Assessment and Plan (1) Morbid obesity due to excess calories Current Visit: Yes Status: Acute Code(s): E66.01 - MORBID (SEVERE) OBESITY DUE TO EXCESS CALORIES SNOMED Code(s): 599851592 (2) COPD (chronic obstructive pulmonary disease) Current Visit: No Status: Acute Code(s): J44.9 - CHRONIC OBSTRUCTIVE PULMONARY DISEASE, UNSPECIFIED SNOMED Code(s): 94635181 <Alisha Villalobos N - Last Filed: 12/23/18 15:55> Subjective Antibiotic course continued for history of contaminated case an expected finding during procedure. We'll proceed with antibiotics for 1 week course. Objective - Vital Signs Vital signs: Vital Signs Temp 98.1 F 12/23/18 07:40 Pulse 84 12/23/18 11:04 Resp 16 12/23/18 07:40 BP 104/59 12/23/18 07:40 Pulse Ox 95 12/23/18 07:42 Intake & Output 12/22/18 12/23/18 12/23/18 18:59 06:59 18:59 Intake Total 100 1021.2 200 Balance 100 1021.2 200 Weight 102 kg Intake: Intake, IV Titration 1021.2 Amount Mvi, Adult No.4 with Vit 1021.2 K 10 ml Thiamine 100 mg Folic Acid 1 mg Potassium Chloride 20 meq In Sodium Chloride 0.9% 1, 000 ml @ 100 mls/hr IV . BY DURATION [facility] Rx#: [id number] Oral 100 200 Other: Voiding Method Toilet - Labs CBC & Chem 7: 12/23/18 07:33 12/22/18 06:55 Labs: Abnormal Lab Results - Last 24 Hours (Table) 12/23/18 Range/Units 07:33 Hgb 11.2 L (11.4-16.0) gm/dL
[2018-12-22] MEDS: MONTELUKAST 10 MG TAB PO SCH (20:01)
[2018-12-23] MEDS: ENOXAPARIN 40 MG/0.4 ML SYRINGE SQ SCH (01:11)
[2018-12-23] MEDS: 1: MVI, ADULT NO.4 WITH VIT K 10 ML, THIAMINE 100 MG, FOLIC ACID 1 MG, POTASSIUM CHLORID IV SCH ×12 (04:10→15:44)
[2018-12-23] MEDS: LACTATED RINGERS 1,000 ML IV SCH (04:13)
[2018-12-23] MEDS: HYOSCYAMINE ORAL DROPS 1.875 MG/15 ML BOTTLE PO SCH ×2 (05:15→13:22)
[2018-12-23] MEDS: SIMETHICONE 40 MG/0.6 ML DROPS 2,000 MG/30 ML BOTTLE PO SCH ×2 (05:16→13:22)
[2018-12-23] MEDS: diphenhydrAMINE 50 MG/ML 1 ML VIAL IVP PRN ×2 (05:18→13:26)
[2018-12-23] MEDS: LEVOFLOXACIN 750MG-D5W PMX 750 MG in DEXTROSE/WATER 1 150ML.BAG IVPB SCH (07:18)
[2018-12-23] MEDS: PANTOPRAZOLE 40 MG/10 ML VIAL IV SCH (07:19)
[2018-12-23] MEDS: LISINOPRIL 10 MG TAB PO SCH (07:19)
[2018-12-23] MEDS: ALBUTEROL NEBULIZED 2.5 MG/3 ML INHALATION SCH ×2 (07:42→10:52)
[2018-12-23] MEDS: SYMBICORT 160-4.5 MCG INHALER INHALATION SCH (07:42)
[2018-12-23 07:52] LABS: Basophils % (A) 0 %; Eosinophils # (A) 0.1 k/uL (0-0.7); Eosinophils % (A) 1 %; HCT 34.3 % (34.0-46.0); HGB 11.2 gm/dL (11.4-16.0); Lymphocytes # (A) 1.9 k/uL (1.0-4.8); Lymphocytes % (A) 20 %; MCH 28.6 pg (25.0-35.0); MCHC 32.7 g/dL (31.0-37.0); MCV 87.4 fL (80.0-100.0); Mean Platelet Volume 6.5; Monocytes # (A) 0.5 k/uL (0-1.0); Monocytes % (A) 6 %; Neutrophils # (A) 6.8 k/uL (1.3-7.7); Neutrophils % (A) 72 %; Platelet Count 219 k/uL (150-450); RBC 3.93 m/uL (3.80-5.40); RDW 14.4 % (11.5-15.5); WBC 9.5 k/uL (3.8-10.6)
[2018-12-23] MEDS ORDERED: BISACODYL 5 MG TABLET.DR PO PRN (08:00)
[2018-12-23 08:18] VITALS: BP 104/59; RESP 16; TEMP 98.1
[2018-12-23 11:05] VITALS: PULSE 84
--- NOTE | 2018-12-23 11:43 | P.DS ---
Providers Date of admission: 12/21/18 11:25 Expected date of discharge: 12/23/18 Attending physician: Alisha Villalobos Primary care physician: Layton Fung - Discharge Diagnosis(es) (1) Morbid obesity due to excess calories Current Visit: Yes Status: Acute (2) COPD (chronic obstructive pulmonary disease) Current Visit: No Status: Acute Hospital Course: 58-year-old female who underwent robotic-assisted laparoscopic Tressa-en-Y gastric bypass. Patient is doing well postoperatively without any immediate complications. She is tolerating clear liquid diet. Pain is controlled on oral medications. Vital signs have been stable. She has stable for discharge home today per Dr. Villalobos. Please see EMR for further hospital course details. Discharge Diagnosis: 1. Morbid obesity due to excess calories 2. Body mass index of 39.0 3. Hypothyroidism 4. Spinal stenosis 5. Osteoarthritis of the lower back. 6. Hypertensive heart disease. 7. Supraventricular tachycardia 8. Gastroesophageal reflux disease, unresolved and recurrent 9. Asthma 10. Anxiety disorder 11. Chronic obstructive pulmonary disorder 12. Rheumatoid arthritis 13. Recurrent hiatal hernia repair 14. Erosive esophagitis 15. Left inguinal hernia, initial Nurse practitioner note has been reviewed by physician. Signing provider agrees with the documented findings, assessment, and plan of care. Patient Condition at Discharge: Stable Plan - Discharge Summary Discharge Rx Participant: Yes New Discharge Prescriptions: New Bisacodyl [Dulcolax] 5 mg PO DAILY PRN #10 tablet.dr PRN Reason: Constipation Simethicone 40 mg/0.6 ml Drops [Mylicon Drops] 40 mg PO PCHS PRN #30 ml PRN Reason: gas HYDROcodone/APAP [Risingsun Elixir 7.5-325Mg/15Ml] 15 ml PO Q6HR PRN 3 Days #180 ml PRN Reason: Pain Acetaminophen Oral Susp [Tylenol Oral Susp] 650 mg PO Q4H PRN #200 ml PRN Reason: Pain Ondansetron Odt [Zofran Odt] 4 mg PO Q8HR PRN #9 tab PRN Reason: Nausea Levofloxacin Oral Soln [Levaquin Oral Soln] 750 mg PO DAILY 5 Days #150 ml Continue Potassium Chloride [Klor-Con M10] 10 meq PO DAILY Furosemide 40 mg PO DAILY Levocetirizine Dihydrochloride [Xyzal] 5 mg PO DAILY Montelukast Sodium [Singulair] 10 mg PO HS Albuterol Sulfate [Proair Hfa] 2 puff INHALATION RT-QID PRN PRN Reason: Shortness Of Breath Azelastine HCl [Astepro] 1 spray NASAL BID PRN PRN Reason: Allergy Symptoms Fluticasone Nasal Scio [Flonase Nasal Scio] 2 spr EA NOSTRIL DAILY Mometasone Furoate [Nasonex Nasal Scio] 2 spr EA NOSTRIL DAILY@1300 clonazePAM [KlonoPIN] 0.5 mg PO BID Albuterol Nebulized (Conc) [Ventolin Nebulized (Conc)] 2.5 mg INHALATION RT- QID PRN PRN Reason: Wheezing Levothyroxine Sodium [Tirosint] 176 mcg PO QAM Omeprazole 40 mg PO DAILY Lisinopril [Zestril] 10 mg PO DAILY Fluticasone/Vilanterol [Breo Ellipta 200-25 Mcg INH] 1 inhalation INHALATION DAILY Discontinued Multivitamins, Thera [Multivitamin (formulary)] 1 tab PO DAILY Atorvastatin [Lipitor] 20 mg PO DAILY Cholecalciferol (Vitamin D3) [Vitamin D3] 10,000 unit PO DAILY Ranitidine HCl [Zantac] 150 mg PO HS #30 tab Calcium Carbonate/Vitamin D3 [Calcium 500-Vit D3 600 Tablet] 2 each PO DAILY Ferrous Sulfate [Feosol] 325 mg PO DAILY Vitamin A Acetate [Vitamin A] 10,000 unit SL DAILY Docusate [Colace] 200 mg PO HS Discharge Medication List Furosemide 40 mg PO DAILY 09/29/13 [History] Levocetirizine Dihydrochloride [Xyzal] 5 mg PO DAILY 09/29/13 [History] Potassium Chloride [Klor-Con M10] 10 meq PO DAILY 09/29/13 [History] Montelukast Sodium [Singulair] 10 mg PO HS 09/12/14 [History] Albuterol Sulfate [Proair Hfa] 2 puff INHALATION RT-QID PRN 07/09/17 [History] Azelastine HCl [Astepro] 1 spray NASAL BID PRN 07/09/17 [History] Fluticasone Nasal Scio [Flonase Nasal Scio] 2 spr EA NOSTRIL DAILY 07/09/17 [History] Mometasone Furoate [Nasonex Nasal Scio] 2 spr EA NOSTRIL DAILY@1300 07/09/17 [History] clonazePAM [KlonoPIN] 0.5 mg PO BID 01/06/18 [History] Albuterol Nebulized (Conc) [Ventolin Nebulized (Conc)] 2.5 mg INHALATION RT-QID PRN 01/15/18 [History] Levothyroxine Sodium [Tirosint] 176 mcg PO QAM 01/15/18 [History] Omeprazole 40 mg PO DAILY 04/22/18 [History] Fluticasone/Vilanterol [Breo Ellipta 200-25 Mcg INH] 1 inhalation INHALATION DAILY 12/15/18 [History] Lisinopril [Zestril] 10 mg PO DAILY 12/15/18 [History] Acetaminophen Oral Susp [Tylenol Oral Susp] 650 mg PO Q4H PRN #200 ml 12/23/18 [Rx] Bisacodyl [Dulcolax] 5 mg PO DAILY PRN #10 tablet.dr 12/23/18 [Rx] HYDROcodone/APAP [Risingsun Elixir 7.5-325Mg/15Ml] 15 ml PO Q6HR PRN 3 Days #180 ml 12/23/18 [Rx] Levofloxacin Oral Soln [Levaquin Oral Soln] 750 mg PO DAILY 5 Days #150 ml 12/23/18 [Rx] Ondansetron Odt [Zofran Odt] 4 mg PO Q8HR PRN #9 tab 12/23/18 [Rx] Simethicone 40 mg/0.6 ml Drops [Mylicon Drops] 40 mg PO PCHS PRN #30 ml 12/23/18 [Rx] Follow up Appointment(s)/Referral(s): Layton Fung MD [Primary Care Provider] - 1 Week Alisha Villalobos MD [STAFF PHYSICIAN] - 12/25/18 10:00 am ([facility]) Patient Instructions/Handouts: *[facility] - (Anesthesia) Discharge Instructions Outpatient Surgery, *[facility] - Scopalamine Patch Instructions, Tressa-en-Y Gastric Bypass (DC) Activity/Diet/Wound Care/Special Instructions: No driving while taking Risingsun No lifting over 4 pounds You may shower. No soaking or tub baths Very light activity until you are reevaluated at your follow up appointment with your surgeon Continue clear liquid diet. No straws or carbonated beverages
== END 2018-12-23 16:29 | disposition home or self-care (01) | DRG 620 ==
LOC: 2ORMAIN 11:25 → EDSTATUS 12:00 → 4SSUR 18:27
PROVIDERS: ADMIT Surgery Plastic and Reconstructive Surgery; ATTEND Surgery Plastic and Reconstructive Surgery
PROC: 8E0W4CZ Robotic Assisted Procedure of Trunk Region, Percutaneous Endoscopic Approach (ICD-10-PCS; 2018-12-21)
PROC: 0DJ08ZZ Inspection of Upper Intestinal Tract, Via Natural or Artificial Opening Endoscopic (ICD-10-PCS; 2018-12-21)
PROC: 0D164ZA Bypass Stomach to Jejunum, Percutaneous Endoscopic Approach (ICD-10-PCS; principal; 2018-12-21 12:25)
DX: E66.01 Morbid (severe) obesity due to excess calories (principal); K22.10 Ulcer of esophagus without bleeding; I11.9 Hypertensive heart disease without heart failure; J44.9 Chronic obstructive pulmonary disease, unspecified; Z68.38 Body mass index [BMI] 38.0-38.9, adult; K21.0 Gastro-esophageal reflux disease with esophagitis; K40.90 Unilateral inguinal hernia, without obstruction or gangrene, not specified as recurrent; E03.9 Hypothyroidism, unspecified; M48.00 Spinal stenosis, site unspecified; M47.9 Spondylosis, unspecified; R40.0 Somnolence; F41.9 Anxiety disorder, unspecified; E78.5 Hyperlipidemia, unspecified; M06.9 Rheumatoid arthritis, unspecified; M19.90 Unspecified osteoarthritis, unspecified site; Z71.3 Dietary counseling and surveillance; Z79.51 Long term (current) use of inhaled steroids; Z79.890 Hormone replacement therapy; Z79.899 Other long term (current) drug therapy; Z98.1 Arthrodesis status; Z90.710 Acquired absence of both cervix and uterus; Z96.653 Presence of artificial knee joint, bilateral; Z96.642 Presence of left artificial hip joint; Z98.890 Other specified postprocedural states; Z87.891 Personal history of nicotine dependence; Z86.79 Personal history of other diseases of the circulatory system; Z88.6 Allergy status to analgesic agent; Z88.1 Allergy status to other antibiotic agents; Z91.02 Food additives allergy status; Z88.5 Allergy status to narcotic agent; Z91.010 Allergy to peanuts; Z83.49 Family history of other endocrine, nutritional and metabolic diseases; Z80.9 Family history of malignant neoplasm, unspecified
CPT/HCPCS: 64488; 80051; 82310; 82565; 83735; 84100; 84520; 85025; 86850; 86900; 86901; 94640; 94760; 94762

== ENCOUNTER → 2018-12-25 | Outpatient (CLI) | payer OTHER, MEDICARE ==
--- NOTE | 2018-12-25 10:11 | P.PN ---
Subjective Progress Note Date: 12/25/18 She wants to drink coffee. She does take lasix. Protien shakes. No GERD. NO infection. Antibiotics done for history of contaminated case. FU next week.
[2018-12-25 10:17] VITALS: BP 112/57; PULSE 87; RESP 16; TEMP 98.7; BMI 40.5
== END | disposition home or self-care (01) ==
LOC: BARWHC3 09:40
PROVIDERS: ATTEND Surgery Plastic and Reconstructive Surgery
DX: I10 Essential (primary) hypertension (principal); F41.9 Anxiety disorder, unspecified; I47.1 Supraventricular tachycardia; Z98.890 Other specified postprocedural states; Z79.1 Long term (current) use of non-steroidal anti-inflammatories (NSAID); Z79.899 Other long term (current) drug therapy; Z88.1 Allergy status to other antibiotic agents; Z88.6 Allergy status to analgesic agent
CPT/HCPCS: 99211

== ENCOUNTER → 2018-12-31 | Outpatient (CLI) | payer OTHER, MEDICARE ==
[2018-12-31 08:42] VITALS: BP 138/78; PULSE 76; TEMP 98.7; BMI 38.6
--- NOTE | 2018-12-31 09:41 | P.PN ---
Subjective Progress Note Date: 12/31/18 She reports pain at the left upper quadrant. She reports occasional cough. No GERD. SHe is passing flatus. She reports gas build up at the back. She is having bowel movements. She is taking Xyzal for allergies. Losing 11 in 15 days. ABDOMEN: Contact dermatitis on adhesive PLAN: 1. Triamcinolon cream 2. Add glue for allergies. 3. Follow up 1 month post op Objective - Vital Signs Vital signs: Vital Signs Temp 98.7 F 12/31/18 08:39 Pulse 76 12/31/18 08:39 Resp BP 138/78 12/31/18 08:39 Pulse Ox Intake & Output 12/30/18 12/31/18 12/31/18 18:59 06:59 18:59 Weight 102.058 kg
== END | disposition home or self-care (01) ==
LOC: BARWHC3 08:03
PROVIDERS: ATTEND Surgery Plastic and Reconstructive Surgery
DX: R10.12 Left upper quadrant pain (principal); R05 Cough; R14.3 Flatulence; E66.01 Morbid (severe) obesity due to excess calories; L25.8 Unspecified contact dermatitis due to other agents; Z79.899 Other long term (current) drug therapy; Z68.38 Body mass index [BMI] 38.0-38.9, adult
CPT/HCPCS: 97802; 99211

== ENCOUNTER → 2019-01-13 | Outpatient (CLI) | payer OTHER, MEDICARE ==
[2019-01-13 14:51] VITALS: BP 117/87; PULSE 83; TEMP 98.2; BMI 36.2
--- NOTE | 2019-01-13 15:07 | P.PN ---
Subjective Progress Note Date: 01/13/19 DATE OF SERVICE: 01/13/2019 CHIEF COMPLAINT: Gastric bypass HISTORY OF PRESENT ILLNESS: Jazmin Castañeda is a 58-year-old female status post gastric bypass 12/21/18. She is 3 weeks post op. She is happy with her weight loss. Her gastroesophageal reflux disease is resolved. She denies any abdominal pain. She is off Tylenol for pain. No further nausea with medications. She has bowel movements. "I am not cooking [place] this year." She is happy with her weight loss. By March 2018, her goal is to get under 180 pounds. She reports intermittent diarrhea. At height of 5 feet 4 inches, her ideal body weight is 144 pounds. Highest 236 pounds, BMI 40.5. Today, she comes in 211 pounds from 225 pounds, 2 weeks ago. She has lost 14 pounds in 2 weeks. Lifetime weight loss of 25 pounds. Her body mass index is down from 40.5 to 36.2. Percent excess weight loss lifetime is 28%. PHYSICAL EXAM: VITAL SIGNS: Height 5 foot 4 inches, weight 211 pounds. BMI 38.6 Vital Signs Temp 98.2 F 01/13/19 14:48 Pulse 83 01/13/19 14:48 Resp BP 117/87 01/13/19 14:48 Pulse Ox GENERAL: Well-developed in no acute distress. HEENT: No scleral icterus. Extraocular movements grossly intact. Hears conversational speech. No nasal drainage. NECK: Supple without lymphadenopathy. CHEST: Nonlabored respirations with equal bilateral excursions. CARDIOVASCULAR: Regular, rate. Distal 2+ pulses. ABDOMEN: Obese. Soft, nontender. MUSCULOSKELETAL: No clubbing, cyanosis. No edema NEURO: No focal or lateralizing signs. Cranial nerves 2 through 12 grossly within normal limits. PSYCH: Appropriate affect. Alert and oriented to person, place and time. SKIN: Good skin turgor. Well perfused. ASSESSMENT: 1. Morbid obesity due to excess calories 2. Body mass index of 40.5 down to 36.2 3. Hypothyroidism 4. Spinal stenosis 5. Osteoarthritis of the lower back. 6. Hypertensive heart disease. 7. Supraventricular tachycardia 8. Gastroesophageal reflux disease, now resolved 9. Asthma 10. Anxiety disorder 11. Chronic obstructive pulmonary disorder 12. Rheumatoid arthritis 13. Recurrent hiatal hernia repair 14. Erosive esophagitis, resolved 15. Status port gastric bypass PLAN: 1. Recommend bariatric labs. 2. May be off restrictions Jan 21. Objective - Vital Signs Vital signs: Vital Signs Temp 98.2 F 01/13/19 14:48 Pulse 83 01/13/19 14:48 Resp BP 117/87 01/13/19 14:48 Pulse Ox Intake & Output 01/12/19 01/13/19 01/13/19 18:59 06:59 18:59 Weight 95.708 kg - Labs CBC & Chem 7: 01/13/19 15:48 01/13/19 15:48
[2019-01-13 16:11] LABS: HCT 39.8 % (34.0-46.0); HGB 13.7 gm/dL (11.4-16.0); MCH 29.7 pg (25.0-35.0); MCHC 34.3 g/dL (31.0-37.0); MCV 86.5 fL (80.0-100.0); Mean Platelet Volume 6.5; Platelet Count 416 k/uL (150-450); RDW 14.6 % (11.5-15.5); WBC 8.3 k/uL (3.8-10.6)
[2019-01-13 16:20] LABS: Partial Thromboplastin Time 26.9 sec (22.0-30.0); Prothrombin Time 10.8 sec (9.0-12.0)
[2019-01-14 01:07] LABS: Ferritin 136.4 ng/mL (10.0-291.0)
[2019-01-14 01:20] LABS: % Iron Saturation 10.99 (12.00-45.00); ALT 25 U/L (8-44); AST 28 U/L (13-35); African American GFR (CKD) 111.5 (60.0-200.0); Albumin/Globulin Ratio 1.76 (1.60-3.17); Alkaline Phosphatase 81 U/L (41-126); BUN/Creat Ratio 12.86 Ratio (12.00-20.00); Calcium 9.6 mg/dL (8.7-10.3); Carbon Dioxide 26.8 mmol/L (21.6-31.8); Chloride 102 mmol/L (96-109); Chol/HDL Ratio 3.83; Cholesterol 176 mg/dL (0-200); Folate, Serum >24.0 ng/mL; Globulin 2.5 g/dL (1.6-3.3); Glucose 87 mg/dL (70-110); Iron 30 ug/dL (50-170); LDL Cholesterol,Calculated 111.4 mg/dL (0.0-131.0); Magnesium 1.9 mg/dL (1.5-2.4); Non-African American GFR(CKD) 96.2 (60.0-200.0); Phosphorus 3.1 mg/dL (2.4-5.1); Potassium 3.3 mmol/L (3.5-5.5); Sodium 141 mmol/L (135-145); Total Bilirubin 0.5 mg/dL (0.3-1.2); Total Iron Binding Capacity 273 ug/dL (228-460); Total Protein 6.9 g/dL (6.2-8.2)
[2019-01-14 01:55] LABS: Hemoglobin A1C 5.7 % (4.0-6.0)
[2019-01-15 12:52] LABS: Vit B1(Thiamine) 62 ug/L (38-122)
[2019-01-15 13:13] LABS: Zinc, Serum 83 ug/dL (60-130)
[2019-01-16 09:25] LABS: Vitamin A 31 ug/dL (38-106)
[2019-01-18 17:42] LABS: Selenium 153 mcg/L (63-160)
== END | disposition home or self-care (01) ==
LOC: BARWHC3 14:08
PROVIDERS: ATTEND Surgery Plastic and Reconstructive Surgery
DX: E66.01 Morbid (severe) obesity due to excess calories (principal); Z68.36 Body mass index [BMI] 36.0-36.9, adult; E03.9 Hypothyroidism, unspecified; M48.00 Spinal stenosis, site unspecified; M47.816 Spondylosis without myelopathy or radiculopathy, lumbar region; I11.9 Hypertensive heart disease without heart failure; I47.1 Supraventricular tachycardia; J44.9 Chronic obstructive pulmonary disease, unspecified; F41.9 Anxiety disorder, unspecified; M06.9 Rheumatoid arthritis, unspecified; K44.9 Diaphragmatic hernia without obstruction or gangrene; E21.1 Secondary hyperparathyroidism, not elsewhere classified; E89.1 Postprocedural hypoinsulinemia; K90.9 Intestinal malabsorption, unspecified; E55.9 Vitamin D deficiency, unspecified; K74.1 Hepatic sclerosis; N19 Unspecified kidney failure; D50.9 Iron deficiency anemia, unspecified; K50.90 Crohn's disease, unspecified, without complications; Z98.84 Bariatric surgery status
CPT/HCPCS: 36415; 80053; 80061; 82306; 82525; 82607; 82728; 82746; 83036; 83540; 83550; 83735; 83970; 84100; 84134; 84255; 84425; 84443; 84590; 84630; 85027; 85610; 85730; 99211

== ENCOUNTER → 2019-03-03 | Outpatient (CLI) | payer MEDICARE, OTHER ==
[2019-03-03 14:07] VITALS: BP 127/79; PULSE 95; RESP 16; TEMP 98.2; BMI 33.5
--- NOTE | 2019-03-03 15:50 | P.PN ---
Subjective Progress Note Date: 03/03/19 DATE OF SERVICE: 03/03/2019 CHIEF COMPLAINT: Gastric bypass HISTORY OF PRESENT ILLNESS: Jazmin Castañeda is a 59-year-old female status post gastric bypass 12/21/18. She is 2 months out. She reports improvement of her breathing is better. Her gastroesophageal reflux is gone. She reports gulping and has intermittent vomiting from eating too fast. No reports of abdominal pain. At height of 5 feet 4 inches, her ideal body weight is 144 pounds. Highest 236 pounds, BMI 40.5. Today, she comes in 195 pounds from 211 pounds, over 1 month ago. She has lost 16 pounds in over 1 month. Lifetime weight loss of 41 pounds. Her body mass index is down from 40.5 to 33.5. Percent excess weight loss lifetime is 45 %. PHYSICAL EXAM: VITAL SIGNS: Height 5 foot 4 inches, weight 195 pounds. BMI 33.5 Vital Signs Temp 98.2 F 03/03/19 14:05 Pulse 95 03/03/19 14:05 Resp 16 03/03/19 14:05 BP 127/79 03/03/19 14:05 Pulse Ox GENERAL: Well-developed in no acute distress. HEENT: No scleral icterus. Extraocular movements grossly intact. Hears conversational speech. No nasal drainage. NECK: Supple without lymphadenopathy. CHEST: Nonlabored respirations with equal bilateral excursions. CARDIOVASCULAR: Regular, rate. Distal 2+ pulses. ABDOMEN: Obese. Soft, nontender. No hernia MUSCULOSKELETAL: No clubbing, cyanosis. No edema NEURO: No focal or lateralizing signs. Cranial nerves 2 through 12 grossly within normal limits. PSYCH: Appropriate affect. Alert and oriented to person, place and time. SKIN: Good skin turgor. Well perfused. LABS: Iron is low. Pre-albumin is low. Vitamin A is low. TSH is high. ASSESSMENT: 1. Morbid obesity due to excess calories 2. Body mass index of 40.5 down to 33.5 3. Hypothyroidism 4. Spinal stenosis 5. Osteoarthritis of the lower back. 6. Hypertensive heart disease. 7. Supraventricular tachycardia, resolved 8. Gastroesophageal reflux disease, now resolved 9. Asthma, improved. 10. Anxiety disorder 11. Chronic obstructive pulmonary disorder 12. Rheumatoid arthritis 13. Recurrent hiatal hernia repair 14. Erosive esophagitis, resolved 15. Status port gastric bypass 16. Vitamin A deficiency 17. Iron deficiency PLAN: 1. Recommend bariatric labs. 2. Follow up May 2019. 3. Overall her reflux disease has resolved since surgery and she is doing very well with weight loss. 4. Vitamin A 21656 units daily 5. Iron supplement with Vitamin C 6. Adjustment of thyroid medication advised Objective - Vital Signs Vital signs: Vital Signs Temp 98.2 F 03/03/19 14:05 Pulse 95 03/03/19 14:05 Resp 16 03/03/19 14:05 BP 127/79 03/03/19 14:05 Pulse Ox Intake & Output 03/02/19 03/03/19 03/03/19 18:59 06:59 18:59 Weight 88.451 kg
== END | disposition home or self-care (01) ==
LOC: BARWHC3 13:10
PROVIDERS: ATTEND Surgery Plastic and Reconstructive Surgery
DX: E66.01 Morbid (severe) obesity due to excess calories (principal); Z68.33 Body mass index [BMI] 33.0-33.9, adult; E03.9 Hypothyroidism, unspecified; M48.00 Spinal stenosis, site unspecified; M47.816 Spondylosis without myelopathy or radiculopathy, lumbar region; I11.9 Hypertensive heart disease without heart failure; F41.9 Anxiety disorder, unspecified; J44.9 Chronic obstructive pulmonary disease, unspecified; M06.9 Rheumatoid arthritis, unspecified; K44.9 Diaphragmatic hernia without obstruction or gangrene; E50.9 Vitamin A deficiency, unspecified; E61.1 Iron deficiency; Z98.84 Bariatric surgery status
CPT/HCPCS: 99211

== ENCOUNTER → 2019-03-16 | Outpatient (CLI) | payer MEDICARE, OTHER ==
[2019-03-16 09:20] LABS: Prothrombin Time 10.3 sec (9.0-12.0)
[2019-03-16 09:26] LABS: HGB 13.5 gm/dL (11.4-16.0); MCH 28.6 pg (25.0-35.0); MCV 89.2 fL (80.0-100.0); Platelet Count 308 k/uL (150-450); RBC 4.71 m/uL (3.80-5.40); RDW 14.8 % (11.5-15.5); WBC 7.9 k/uL (3.8-10.6)
[2019-03-16 18:06] LABS: % Iron Saturation 37.17 (12.00-45.00); ALT 20 U/L (8-44); AST 23 U/L (13-35); African American GFR (CKD) 110.7 (60.0-200.0); Albumin/Globulin Ratio 2.14 (1.60-3.17); Alkaline Phosphatase 73 U/L (41-126); BUN/Creat Ratio 12.86 Ratio (12.00-20.00); Calcium 9.2 mg/dL (8.7-10.3); Carbon Dioxide 28.6 mmol/L (21.6-31.8); Chloride 99 mmol/L (96-109); Cholesterol 190 mg/dL (0-200); Globulin 2.1 g/dL (1.6-3.3); Glucose 111 mg/dL (70-110); Iron 100 ug/dL (50-170); LDL Cholesterol,Calculated 121.6 mg/dL (0.0-131.0); Magnesium 1.7 mg/dL (1.5-2.4); Non-African American GFR(CKD) 95.5 (60.0-200.0); Phosphorus 2.6 mg/dL (2.4-5.1); Potassium 3.7 mmol/L (3.5-5.5); Sodium 141 mmol/L (135-145); Total Bilirubin 0.6 mg/dL (0.3-1.2); Total Iron Binding Capacity 269 ug/dL (228-460); Total Protein 6.6 g/dL (6.2-8.2)
[2019-03-16 18:14] LABS: Ferritin 71.9 ng/mL (10.0-291.0)
[2019-03-16 18:19] LABS: Folate, Serum >24.0 ng/mL
[2019-03-16 19:34] LABS: Hemoglobin A1C 5.2 % (4.0-6.0)
[2019-03-17 13:01] LABS: Zinc, Serum 92 ug/dL (60-130)
[2019-03-18 06:56] LABS: Vitamin A 38 ug/dL (38-106)
[2019-03-19 00:15] LABS: Selenium 87 mcg/L (63-160)
[2019-03-19 07:21] LABS: Vit B1(Thiamine) 73 ug/L (38-122)
== END | disposition home or self-care (01) ==
LOC: LABWHC1 08:40
PROVIDERS: ATTEND Surgery Plastic and Reconstructive Surgery
DX: E21.1 Secondary hyperparathyroidism, not elsewhere classified (principal); E66.01 Morbid (severe) obesity due to excess calories; K90.9 Intestinal malabsorption, unspecified; E44.0 Moderate protein-calorie malnutrition; E55.9 Vitamin D deficiency, unspecified; K74.1 Hepatic sclerosis; N19 Unspecified kidney failure; K50.90 Crohn's disease, unspecified, without complications; D50.9 Iron deficiency anemia, unspecified; E89.1 Postprocedural hypoinsulinemia
CPT/HCPCS: 36415; 80053; 80061; 82306; 82525; 82607; 82728; 82746; 83036; 83540; 83550; 83735; 83970; 84100; 84134; 84255; 84425; 84443; 84590; 84630; 85027; 85610; 85730

== ENCOUNTER → 2019-04-14 | Outpatient (CLI) | payer OTHER ==
[2019-04-14 13:08] VITALS: BP 127/79; PULSE 95; TEMP 98.2; BMI 31.7
--- NOTE | 2019-04-14 13:16 | P.PN ---
Subjective Progress Note Date: 04/14/19 DATE OF SERVICE: 04/14/2019 CHIEF COMPLAINT: Gastric bypass HISTORY OF PRESENT ILLNESS: Jazmin Castañeda is a 59-year-old female status post gastric bypass 12/21/18. She is over 3 months out. She wants more weight loss. She is exercising. Her personal goal is to get to 150 pounds. She reports no increased reflux. She reports feeling good. She takes Nexium on occasion. At height of 5 feet 4 inches, her ideal body weight is 144 pounds. Highest 236 pounds, BMI 40.5. Today, she comes in 185 pounds from 195 pounds, over 1 month ago. She has lost 10 pounds in over 1 month. Lifetime weight loss of 51 pounds. Her body mass index is down from 40.5 to 31.8. Percent excess weight loss lifetime is 56 %. PHYSICAL EXAM: VITAL SIGNS: Height 5 foot 4 inches, weight 185 pounds. BMI 31.8 Vital Signs Temp 98.2 F 04/14/19 13:03 Pulse 95 04/14/19 13:03 Resp BP 127/79 04/14/19 13:03 Pulse Ox HEENT: No scleral icterus. Extraocular movements grossly intact. Hears conversational speech. No nasal drainage. NECK: Supple without lymphadenopathy. CHEST: Nonlabored respirations with equal bilateral excursions. CARDIOVASCULAR: Regular, rate. Distal 2+ pulses. ABDOMEN: Soft, nontender. No hernia MUSCULOSKELETAL: No clubbing, cyanosis. No edema NEURO: No focal or lateralizing signs. Cranial nerves 2 through 12 grossly within normal limits. PSYCH: Appropriate affect. Alert and oriented to person, place and time. SKIN: Good skin turgor. Well perfused. LABS: Vitamin D is elevated. PTH is elevated. ASSESSMENT: 1. Morbid obesity due to excess calories 2. Body mass index of 40.5 down to 31.8 3. Hypothyroidism 4. Spinal stenosis 5. Osteoarthritis of the lower back. 6. Hypertensive heart disease. 7. Supraventricular tachycardia, resolved 8. Gastroesophageal reflux disease, now resolved 9. Asthma, improved. 10. Anxiety disorder 11. Chronic obstructive pulmonary disorder 12. Rheumatoid arthritis 13. Recurrent hiatal hernia repair 14. Erosive esophagitis, resolved 15. Status port gastric bypass 16. Vitamin A deficiency, resolved 17. Iron deficiency, resolved PLAN: 1. Her Vitamin D is high. Recommend decrease vitamin D. 2. Follow up in 3 months. Objective - Vital Signs Vital signs: Vital Signs Temp 98.2 F 04/14/19 13:03 Pulse 95 04/14/19 13:03 Resp BP 127/79 04/14/19 13:03 Pulse Ox Intake & Output 04/13/19 04/14/19 04/14/19 18:59 06:59 18:59 Weight 83.915 kg
== END | disposition home or self-care (01) ==
LOC: BARWHC3 11:50
PROVIDERS: ATTEND Surgery Plastic and Reconstructive Surgery
DX: E66.01 Morbid (severe) obesity due to excess calories (principal); Z68.31 Body mass index [BMI] 31.0-31.9, adult; E03.9 Hypothyroidism, unspecified; M48.00 Spinal stenosis, site unspecified; M47.816 Spondylosis without myelopathy or radiculopathy, lumbar region; I11.9 Hypertensive heart disease without heart failure; F41.9 Anxiety disorder, unspecified; J44.9 Chronic obstructive pulmonary disease, unspecified; M06.9 Rheumatoid arthritis, unspecified; K44.9 Diaphragmatic hernia without obstruction or gangrene
CPT/HCPCS: 99211

== ENCOUNTER → 2019-07-05 | Outpatient (CLI) | payer OTHER, MEDICARE ==
[2019-07-05 10:04] LABS: HCT 43.9 % (34.0-46.0); HGB 13.8 gm/dL (11.4-16.0); MCHC 31.3 g/dL (31.0-37.0); MCV 92.5 fL (80.0-100.0); Mean Platelet Volume 7.8; Platelet Count 333 k/uL (150-450); RBC 4.75 m/uL (3.80-5.40); RDW 14.3 % (11.5-15.5); WBC 8.2 k/uL (3.8-10.6)
[2019-07-05 10:13] LABS: INR 0.9 (<1.2); Partial Thromboplastin Time 26.4 sec (22.0-30.0); Prothrombin Time 9.7 sec (9.0-12.0)
[2019-07-05 16:23] LABS: % Iron Saturation 26.87 (12.00-45.00); ALT 16 U/L (8-44); AST 22 U/L (13-35); African American GFR (CKD) 110.7 (60.0-200.0); Albumin/Globulin Ratio 1.83 (1.60-3.17); Alkaline Phosphatase 79 U/L (41-126); BUN/Creat Ratio 11.43 Ratio (12.00-20.00); Calcium 9.6 mg/dL (8.7-10.3); Carbon Dioxide 29.1 mmol/L (21.6-31.8); Chloride 104 mmol/L (96-109); Chol/HDL Ratio 3.42; Cholesterol 205 mg/dL (0-200); Globulin 2.4 g/dL (1.6-3.3); Glucose 90 mg/dL (70-110); Iron 79 ug/dL (50-170); Magnesium 2.2 mg/dL (1.5-2.4); Non-African American GFR(CKD) 95.5 (60.0-200.0); Phosphorus 4.2 mg/dL (2.4-5.1); Potassium 4.3 mmol/L (3.5-5.5); Sodium 148 mmol/L (135-145); Total Bilirubin 0.7 mg/dL (0.3-1.2); Total Iron Binding Capacity 294 ug/dL (228-460); Total Protein 6.8 g/dL (6.2-8.2)
[2019-07-05 16:34] LABS: Ferritin 69.7 ng/mL (10.0-291.0)
[2019-07-05 16:36] LABS: Folate, Serum >24.0 ng/mL
[2019-07-06 13:21] LABS: Zinc, Serum 74 ug/dL (60-130)
[2019-07-07 06:48] LABS: Vitamin A 36 ug/dL (38-106)
[2019-07-07 07:27] LABS: Vit B1(Thiamine) 61 ug/L (38-122)
== END | disposition home or self-care (01) ==
LOC: LABWHC1 07:59
PROVIDERS: ATTEND Surgery Plastic and Reconstructive Surgery
DX: E21.1 Secondary hyperparathyroidism, not elsewhere classified (principal); E89.1 Postprocedural hypoinsulinemia; D50.9 Iron deficiency anemia, unspecified; K90.9 Intestinal malabsorption, unspecified; E55.9 Vitamin D deficiency, unspecified; K74.1 Hepatic sclerosis; N19 Unspecified kidney failure; K50.90 Crohn's disease, unspecified, without complications
CPT/HCPCS: 36415; 80053; 80061; 82306; 82525; 82607; 82728; 82746; 83540; 83550; 83735; 83970; 84100; 84134; 84255; 84425; 84443; 84590; 84630; 85027; 85610; 85730

== ENCOUNTER → 2019-07-14 | Outpatient (CLI) | payer OTHER ==
[2019-07-14 12:46] VITALS: BP 110/70; PULSE 104; RESP 20; TEMP 98.3; BMI 29.7
--- NOTE | 2019-07-14 13:38 | P.PN ---
Subjective Progress Note Date: 07/14/19 DATE OF SERVICE: 07/14/2019 CHIEF COMPLAINT: Gastric bypass HISTORY OF PRESENT ILLNESS: Jazmin Castañeda is a 59-year-old female status post gastric bypass 12/21/18. She is over 6 months out. She has lost 13 pounds in 3 months per her recollection. She feels good. 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 No reports of heartburn. No reports of dumping syndrome. She snacks rarely. No reports of dysphagia or abdominal pain. She has lost 65 pounds. Highest weight 237 pounds. She feels great! She is not taking Omeprazole. No reports of hayes's. She is getting at least 60 grams of protein. At height of 5 feet 4 inches, her ideal body weight is 144 pounds. Highest 237 p ounds, BMI 40.8. Today, she comes in 173 pounds from 185 pounds, over 3 months ago. She has lost 11 pounds in 3 months. Lifetime weight loss of 64 pounds. Her body mass index is down from 40.8 to 29.8. Percent excess weight loss lifetime is 69 %. PHYSICAL EXAM: VITAL SIGNS: Height 5 foot 4 inches, weight 173 pounds. BMI 29.8 Vital Signs Temp 98.3 F 07/14/19 12:44 Pulse 104 H 07/14/19 12:44 Resp 20 07/14/19 12:44 BP 110/70 07/14/19 12:44 Pulse Ox HEENT: No scleral icterus. Extraocular movements grossly intact. Hears conversational speech. No nasal drainage. NECK: Supple without lymphadenopathy. CHEST: Nonlabored respirations with equal bilateral excursions. CARDIOVASCULAR: Tachycardic. Distal 2+ pulses. ABDOMEN: Soft, nontender. No hernia MUSCULOSKELETAL: No clubbing, cyanosis. No edema NEURO: No focal or lateralizing signs. Cranial nerves 2 through 12 grossly within normal limits. PSYCH: Appropriate affect. Alert and oriented to person, place and time. SKIN: Good skin turgor. Well perfused. LABS: Reviewed. TSH is elevated 6.5. Vitamin A is low 36. ASSESSMENT: 1. Morbid obesity due to excess calories 2. Body mass index of 40.8 down to 29.8 3. Hypothyroidism 4. Spinal stenosis 5. Osteoarthritis of the lower back. 6. Hypertensive heart disease. 7. Supraventricular tachycardia, resolved 8. Gastroesophageal reflux disease, now resolved 9. Asthma, improved. 10. Anxiety disorder 11. Chronic obstructive pulmonary disorder 12. Rheumatoid arthritis 13. Recurrent hiatal hernia repair 14. Erosive esophagitis, resolved 15. Status port gastric bypass 16. Vitamin A deficiency 17. Iron deficiency, resolved PLAN: 1. She reports cutting down on her thyroid medication as she misunderstood her results 2. Increase thyroid medication to her previous dosage 175 mcg 3. Follow up 9 month visit. Objective - Vital Signs Vital signs: Vital Signs Temp 98.3 F 07/14/19 12:44 Pulse 104 H 07/14/19 12:44 Resp 20 07/14/19 12:44 BP 110/70 07/14/19 12:44 Pulse Ox Intake & Output 07/13/19 07/14/19 07/14/19 18:59 06:59 18:59 Weight 78.698 kg
== END | disposition home or self-care (01) ==
LOC: BARWHC3 12:35
PROVIDERS: ATTEND Surgery Plastic and Reconstructive Surgery
DX: Z48.815 Encounter for surgical aftercare following surgery on the digestive system (principal); E66.01 Morbid (severe) obesity due to excess calories; E03.9 Hypothyroidism, unspecified; M48.00 Spinal stenosis, site unspecified; M19.90 Unspecified osteoarthritis, unspecified site; I11.9 Hypertensive heart disease without heart failure; F41.9 Anxiety disorder, unspecified; J44.9 Chronic obstructive pulmonary disease, unspecified; E50.9 Vitamin A deficiency, unspecified; M06.9 Rheumatoid arthritis, unspecified; Z68.29 Body mass index [BMI] 29.0-29.9, adult; Z98.890 Other specified postprocedural states; Z98.84 Bariatric surgery status; Z79.890 Hormone replacement therapy
CPT/HCPCS: 99211

== ENCOUNTER → 2019-09-20 | Outpatient (CLI) | payer OTHER ==
[2019-09-20 09:45] LABS: HCT 44.9 % (34.0-46.0); HGB 14.3 gm/dL (11.4-16.0); MCH 29.4 pg (25.0-35.0); MCHC 31.8 g/dL (31.0-37.0); MCV 92.3 fL (80.0-100.0); Mean Platelet Volume 7.6; Platelet Count 310 k/uL (150-450); RBC 4.86 m/uL (3.80-5.40); RDW 12.9 % (11.5-15.5); WBC 7.4 k/uL (3.8-10.6)
[2019-09-20 17:24] LABS: % Iron Saturation 34.21 (12.00-45.00); African American GFR (CKD) 110.7 (60.0-200.0); Albumin 4.1 g/dL (3.80-4.90); Albumin/Globulin Ratio 2.05 (1.60-3.17); Anion Gap 3.6 mmol/L (4.00-12.00); BUN/Creat Ratio 15.71 Ratio (12.00-20.00); Calcium 9.5 mg/dL (8.7-10.3); Carbon Dioxide 31.4 mmol/L (21.6-31.8); Chol/HDL Ratio 3.69; LDL Cholesterol,Calculated 110.6 mg/dL (0.0-131.0); Non-African American GFR(CKD) 95.5 (60.0-200.0); Phosphorus 3.6 mg/dL (2.4-5.1); Potassium 3.8 mmol/L (3.5-5.5); Total Bilirubin 0.5 mg/dL (0.3-1.2); Total Protein 6.1 g/dL (6.2-8.2); VLDL Calculation 21.4 mg/dL (5.00-40.00)
[2019-09-20 17:32] LABS: Ferritin 54.3 ng/mL (10.0-291.0)
[2019-09-20 17:50] LABS: Folate, Serum 17.9 ng/mL
[2019-09-20 19:56] LABS: Hemoglobin A1C 5.5 % (4.0-6.0)
[2019-09-20 23:26] LABS: INR 0.98 (0.90-1.11); Partial Thromboplastin Time 30.8 sec (24.7-29.9); Prothrombin Time 10.5 sec (9.9-11.9)
[2019-09-21 12:40] LABS: Zinc, Serum 94 ug/dL (60-130)
[2019-09-22 06:47] LABS: Vitamin A 63 ug/dL (38-106)
== END | disposition home or self-care (01) ==
LOC: LABWHC1 07:59
PROVIDERS: ATTEND Surgery Plastic and Reconstructive Surgery
DX: E21.1 Secondary hyperparathyroidism, not elsewhere classified (principal); E89.1 Postprocedural hypoinsulinemia; D50.9 Iron deficiency anemia, unspecified; E44.0 Moderate protein-calorie malnutrition; E55.9 Vitamin D deficiency, unspecified; K74.1 Hepatic sclerosis; N19 Unspecified kidney failure; K50.90 Crohn's disease, unspecified, without complications; K21.9 Gastro-esophageal reflux disease without esophagitis
CPT/HCPCS: 36415; 80053; 80061; 82306; 82525; 82607; 82728; 82746; 83036; 83540; 83550; 83735; 83970; 84100; 84134; 84255; 84425; 84443; 84590; 84630; 85027; 85610; 85730

== ENCOUNTER → 2019-10-06 | Outpatient (CLI) | payer OTHER ==
--- NOTE | 2019-10-06 09:58 | MM ---
Reason for exam: screening (asymptomatic). Last mammogram was performed 2 years and 2 months ago. History: Patient is postmenopausal. Took estrogen for 5 years beginning at age 54. Physical Findings: A clinical breast exam by your physician is recommended on an annual basis and results should be correlated with mammographic findings. MG Screening Mammo w CAD Bilateral CC and MLO view(s) were taken. Prior study comparison: August 12, 2017, bilateral MG screening mammo w CAD. December 04, 2015, bilateral MG screening mammo w CAD. There are scattered fibroglandular densities. There is no discrete abnormality. No significant changes when compared with prior studies. ASSESSMENT: Negative, BI-RAD 1 RECOMMENDATION: Routine screening mammogram of both breasts in 1 year.
== END | disposition home or self-care (01) ==
LOC: RADMAMWWP 06:50
PROVIDERS: ATTEND Family Medicine
DX: Z12.39 Encounter for other screening for malignant neoplasm of breast (principal)
CPT/HCPCS: 77067

== ENCOUNTER → 2020-01-17 | Outpatient (CLI) | payer MEDICARE ==
[2020-01-17 08:06] LABS: HCT 41.7 % (34.0-46.0); HGB 13.6 gm/dL (11.4-16.0); MCH 29.6 pg (25.0-35.0); MCHC 32.5 g/dL (31.0-37.0); MCV 91.1 fL (80.0-100.0); Mean Platelet Volume 7.4; Platelet Count 296 k/uL (150-450); RBC 4.58 m/uL (3.80-5.40); RDW 13.6 % (11.5-15.5); WBC 6.9 k/uL (3.8-10.6)
[2020-01-17 11:20] LABS: % Iron Saturation 32.73 (12.00-45.00); African American GFR (CKD) 116.4 (60.0-200.0); Albumin 4.3 g/dL (3.80-4.90); Albumin/Globulin Ratio 2.15 (1.60-3.17); Anion Gap 5.8 mmol/L (4.00-12.00); BUN/Creat Ratio 18.33 Ratio (12.00-20.00); Calcium 9.5 mg/dL (8.7-10.3); Carbon Dioxide 31.2 mmol/L (21.6-31.8); Chol/HDL Ratio 3.47; LDL Cholesterol,Calculated 113.4 mg/dL (0.0-131.0); Magnesium 2.2 mg/dL (1.5-2.4); Non-African American GFR(CKD) 100.5 (60.0-200.0); Phosphorus 3.9 mg/dL (2.4-5.1); Potassium 3.6 mmol/L (3.5-5.5); Total Bilirubin 0.6 mg/dL (0.3-1.2); Total Protein 6.3 g/dL (6.2-8.2); VLDL Calculation 17.6 mg/dL (5.00-40.00)
[2020-01-17 11:37] LABS: Folate, Serum 19.9 ng/mL
[2020-01-17 12:30] LABS: Hemoglobin A1C 5.6 % (4.0-6.0)
[2020-01-17 17:19] LABS: INR 0.98 (0.90-1.11); Partial Thromboplastin Time 29.1 sec (23.5-31.0); Prothrombin Time 10.6 sec (9.9-11.9)
[2020-01-18 12:21] LABS: Zinc, Serum 89 ug/dL (60-130)
[2020-01-19 06:01] LABS: Vitamin A 38 ug/dL (38-106)
[2020-01-19 06:14] LABS: Vit B1(Thiamine) 65 ug/L (38-122)
== END | disposition home or self-care (01) ==
LOC: LABWHC1 07:16
PROVIDERS: ATTEND Surgery Plastic and Reconstructive Surgery
DX: E21.1 Secondary hyperparathyroidism, not elsewhere classified (principal); E89.1 Postprocedural hypoinsulinemia; D50.9 Iron deficiency anemia, unspecified; K90.9 Intestinal malabsorption, unspecified; E55.9 Vitamin D deficiency, unspecified; K74.1 Hepatic sclerosis; N19 Unspecified kidney failure; K50.90 Crohn's disease, unspecified, without complications; K21.9 Gastro-esophageal reflux disease without esophagitis
CPT/HCPCS: 36415; 80053; 80061; 82306; 82525; 82607; 82728; 82746; 83036; 83540; 83550; 83735; 83970; 84100; 84134; 84255; 84425; 84443; 84590; 84630; 85027; 85610; 85730

== ENCOUNTER → 2020-01-26 | Outpatient (CLI) | payer MEDICARE, OTHER ==
[2020-01-26 12:58] VITALS: BP 127/79; PULSE 91; RESP 18; TEMP 97.9
--- NOTE | 2020-01-26 13:55 | P.PN ---
Subjective Progress Note Date: 01/26/20 DATE OF SERVICE: 01/26/2020 CHIEF COMPLAINT: Status post gastric bypass HISTORY OF PRESENT ILLNESS: Jazmin Castañeda is a 60-year-old female status post gastric bypass 12/21/18. She is over 1 year out. She denies nausea or vomiting. She is very successful. No reports of gastroesophageal refluc disease. She avoids high carb foods. She does sensible eating. She has completed her labs. "I am on top of my decisions." She is doing very well. At height of 5 feet 4 inches, her ideal body weight is 144 pounds. Highest 237 pounds, BMI 40.8. Today, she comes in 155 pounds from 162 pounds, 4 months ago. She has lost 7 pounds in 4 months. Lifetime weight loss of 82 pounds. Her body mass index is down from 40.8 to 26.6. Percent excess weight loss lifetime is 89 %. PHYSICAL EXAM: VITAL SIGNS: Height 5 foot 4 inches, weight 155 pounds. BMI 26.6 Vital Signs Temp 97.9 F 01/26/20 12:56 Pulse 91 01/26/20 12:56 Resp 18 01/26/20 12:56 BP 127/79 01/26/20 12:56 Pulse Ox HEENT: No scleral icterus. Extraocular movements grossly intact. Hears conversational speech. No nasal drainage. NECK: Supple without lymphadenopathy. CHEST: Nonlabored respirations with equal bilateral excursions. CARDIOVASCULAR: Regular rate and rhythm. Distal 2+ pulses. ABDOMEN: Soft, nontender. No hernia MUSCULOSKELETAL: No clubbing, cyanosis. No edema NEURO: No focal or lateralizing signs. Cranial nerves 2 through 12 grossly within normal limits. PSYCH: Appropriate affect. Alert and oriented to person, place and time. SKIN: Good skin turgor. Well perfused. Has panniculitis of the breast. LABS: Reviewed. All vitamins within normal limits. TSH suppressed. ASSESSMENT: 1. Morbid obesity due to excess calories 2. Body mass index of 40.8 down to 26.6 3. Hypothyroidism 4. Spinal stenosis 5. Osteoarthritis of the lower back. 6. Hypertensive heart disease, resolved. 7. Supraventricular tachycardia, resolved 8. Gastroesophageal reflux disease, now resolved 9. Asthma, improved. 10. Anxiety disorder 11. Chronic obstructive pulmonary disorder 12. Rheumatoid arthritis 13. Recurrent hiatal hernia repair 14. Erosive esophagitis, resolved 15. Status port gastric bypass 16. Vitamin A deficiency 17. Iron deficiency, resolved 18. Panniculitis PLAN: 1. Overall she is doing well. 2. Risks for small bowel obstruction and internal hernias were reviewed. Objective - Vital Signs Vital signs: Vital Signs Temp 97.9 F 01/26/20 12:56 Pulse 91 01/26/20 12:56 Resp 18 01/26/20 12:56 BP 127/79 01/26/20 12:56 Pulse Ox Intake & Output 01/25/20 01/26/20 01/26/20 18:59 06:59 18:59 Weight 70.307 kg
== END | disposition home or self-care (01) ==
LOC: BARWHC3 12:28
PROVIDERS: ATTEND Surgery Plastic and Reconstructive Surgery
DX: E66.01 Morbid (severe) obesity due to excess calories (principal); E03.9 Hypothyroidism, unspecified; M48.00 Spinal stenosis, site unspecified; M47.9 Spondylosis, unspecified; F41.9 Anxiety disorder, unspecified; J44.9 Chronic obstructive pulmonary disease, unspecified; M06.9 Rheumatoid arthritis, unspecified; E50.9 Vitamin A deficiency, unspecified; M79.3 Panniculitis, unspecified; Z98.890 Other specified postprocedural states; Z98.84 Bariatric surgery status; Z68.26 Body mass index [BMI] 26.0-26.9, adult
CPT/HCPCS: 99211

== ENCOUNTER → 2020-04-19 | Outpatient (CLI) | payer OTHER, MEDICARE ==
[2020-04-19 12:46] VITALS: BP 125/81; PULSE 79; RESP 18; TEMP 98.1; BMI 25.9
--- NOTE | 2020-04-19 13:26 | P.PN ---
Subjective Progress Note Date: 04/19/20 She comes in with left upper quadrant pain. Recommend robotic lysis of adhesions. She reports low appetite. Her pain is improved with passing flatus. She reports its been on and off. No more GERD. EKG reviewed and was abnormal. Recommend repeat EKG. Pannus over 5 pounds. Objective - Vital Signs Vital signs: Vital Signs Temp 98.1 F 04/19/20 12:37 Pulse 79 04/19/20 12:37 Resp 18 04/19/20 12:37 BP 125/81 04/19/20 12:37 Pulse Ox Intake & Output 04/18/20 04/19/20 04/19/20 18:59 06:59 18:59 Weight 68.674 kg
== END ==
LOC: BARWHC3 12:19
PROVIDERS: ATTEND Surgery Plastic and Reconstructive Surgery
DX: K21.9 Gastro-esophageal reflux disease without esophagitis (principal); J44.9 Chronic obstructive pulmonary disease, unspecified; M19.90 Unspecified osteoarthritis, unspecified site; E03.9 Hypothyroidism, unspecified
CPT/HCPCS: 99211

== ENCOUNTER → 2020-04-20 | Outpatient (CLI) | payer MEDICARE ==
[2020-04-20 08:00] LABS: Basophils # (A) 0.1 k/uL (0-0.2); Basophils % (A) 1 %; Eosinophils # (A) 0.5 k/uL (0-0.7); Eosinophils % (A) 7 %; HCT 43.6 % (34.0-46.0); Lymphocytes # (A) 2.4 k/uL (1.0-4.8); Lymphocytes % (A) 35 %; MCH 28.7 pg (25.0-35.0); MCHC 32.2 g/dL (31.0-37.0); MCV 89.3 fL (80.0-100.0); Mean Platelet Volume 7.4; Monocytes # (A) 0.4 k/uL (0-1.0); Monocytes % (A) 6 %; Neutrophils # (A) 3.4 k/uL (1.3-7.7); Neutrophils % (A) 50 %; Platelet Count 333 k/uL (150-450); RBC 4.89 m/uL (3.80-5.40); WBC 6.9 k/uL (3.8-10.6)
[2020-04-20 08:09] LABS: ALT 13 U/L (4-34); AST 22 U/L (14-36); African American GFR (CKD) >90 (>60 ml/min/1.73 sqM); Albumin 3.9 g/dL (3.5-5.0); Alkaline Phosphatase 69 U/L (38-126); Anion Gap 7 mmol/L; Blood Urea Nitrogen 9 mg/dL (7-17); Calcium 9.5 mg/dL (8.4-10.2); Carbon Dioxide 34 mmol/L (22-30); Chloride 100 mmol/L (98-107); Glucose 102 mg/dL (74-99); Non-African American GFR(CKD) >90 (>60 ml/min/1.73 sqM); Potassium 4.2 mmol/L (3.5-5.1); Sodium 141 mmol/L (137-145); Total Bilirubin 0.6 mg/dL (0.2-1.3); Total Protein 6.6 g/dL (6.3-8.2)
== END | disposition home or self-care (01) ==
LOC: LABPAT 06:58
PROVIDERS: ATTEND Surgery Plastic and Reconstructive Surgery
DX: Z01.818 Encounter for other preprocedural examination (principal)
CPT/HCPCS: 36415; 80053; 85025; 93005

== ENCOUNTER 2020-05-08 09:08 | Day surgery (SDC) | payer OTHER, MEDICARE ==
[2020-05-04 09:26] VITALS: BMI 25.9
--- NOTE | 2020-05-08 05:49 | P.GSHP ---
History of Present Illness H&P Date: 05/08/20 CHIEF COMPLAINT: History of intra-abdominal adhesions HISTORY OF PRESENT ILLNESS: The patient is a 60-year-old female who presents with history of intra-abdominal adhesions from multiple prior surgeries including increasing left upper quadrant abdominal pain. She now presents for diagnostic laparoscopy including lysis of adhesions. PAST MEDICAL HISTORY: Please see list. PAST SURGICAL HISTORY: Please see list. MEDICATIONS: Please see list. ALLERGIES: Please see list. SOCIAL HISTORY: No illicit drug use FAMILY HISTORY: No reports of Crohn disease or ulcerative colitis. REVIEW OF ORGAN SYSTEMS: CONSTITUTIONAL: No reports of fevers or chills. GI: Denies any blood in stools or constipation. PHYSICAL EXAM: VITAL SIGNS: Stable GENERAL: Well-developed pleasant and in no acute distress. HEENT: No scleral icterus. Extraocular movements grossly intact. Moist buccal mucosa. NECK: Supple without lymphadenopathy. CHEST: Unlabored respirations. Equal bilateral excursions. CARDIOVASCULAR: Regular rate and rhythm. Distal 2+ pulses. ABDOMEN: Soft, diffuse abdominal tenderness. No peritonitis. MUSCULOSKELETAL: No clubbing, cyanosis, or edema. ASSESSMENT: 1. Left upper abdominal pain. 2. History of multiple abdominal surgeries. 3. Intra-abdominal adhesions. PLAN: 1. Robotic lysis of adhesions were described in detail including risk of injury to the intestine, need for further surgery, and open technique. 2. DVT prophylaxis. 3. Antibiotic prophylaxis. Past Medical History Past Medical History: Asthma, COPD, GERD/Reflux, Osteoarthritis (OA), Rheumatoid Arthritis (RA), Supraventricular Tachycardia (SVT), Thyroid Disorder Additional Past Medical History / Comment(s): current tx bronchitis,and increased reflux,SPINAL STENOSIS, IODINE TX TO environmental allergies,intermittent summer ankle swelling History of Any Multi-Drug Resistant Organisms: None Reported Past Surgical History: Back Surgery, Bariatric Surgery, Hernia Repair, Hysterect ronnie, Joint Replacement, Orthopedic Surgery Additional Past Surgical History / Comment(s): COLONOSCOPY, SPINAL FUSION, EMIR FUNDOPLICATION, left hip replacment, summer knee replacements, nasal polyps x6, hiatal hernia repair. RnY December 2018 () Past Anesthesia/Blood Transfusion Reactions: No Reported Reaction Additional Past Anesthesia/Blood Transfusion Reaction / Comment(s): no problems with prior blood transfusion Smoking Status: Former smoker - Past Family History Father Family Medical History: Cancer Mother Family Medical History: No Reported History Medications and Allergies Home Medications Medication Instructions Recorded Confirmed Type Furosemide 40 mg PO DAILY 09/29/13 05/04/20 History Levocetirizine Dihydrochloride 5 mg PO DAILY 09/29/13 05/04/20 History [Xyzal] Potassium Chloride [Klor-Con M10] 10 meq PO DAILY 09/29/13 05/04/20 History Montelukast Sodium [Singulair] 10 mg PO HS 09/12/14 05/04/20 History Albuterol Sulfate [Proair Hfa] 2 puff INHALATION RT-QID PRN 07/09/17 05/04/20 History Azelastine HCl [Astepro] 1 spray NASAL BID PRN 07/09/17 05/04/20 History Mometasone Furoate [Nasonex Nasal 2 spr EA NOSTRIL DAILY@1300 07/09/17 05/04/20 History Thida] Albuterol Nebulized (Conc) 2.5 mg INHALATION RT-QID PRN 01/15/18 05/04/20 History [Ventolin Nebulized (Conc)] Calcium Citrate 1,200 mg PO DAILY 03/24/19 05/04/20 History Multivitamins, Thera [Multivitamin 1 tab PO DAILY 03/24/19 05/04/20 History (formulary)] Vitamin A 10,000 unit PO DAILY 03/24/19 05/04/20 History Dupilumab [Dupixent] 300 mg SQ Q14D 04/14/19 05/04/20 History Cholecalciferol [Vitamin D3 (25 250 mcg PO DAILY 07/14/19 05/04/20 History Mcg = 1000 Iu)] Ferrous Sulfate [Feosol] 325 mg PO DAILY 07/14/19 05/04/20 History Levothyroxine Sodium [Synthroid] 137 mcg PO QAM 01/26/20 05/04/20 History Allergies Allergy/AdvReac Type Severity Reaction Status Date / Time peanut Allergy Severe Anaphylaxis Verified 05/04/20 09:06 NSAIDS (Non-Steroidal Allergy Unknown Nausea & Verified 05/04/20 09:06 Anti-Inflamma Vomiting, Lightheaded., Has samters Triad. adhesive Allergy Rash/Hives Verified 05/04/20 09:06 aspirin Allergy Has Verified 05/04/20 09:06 Samters Triad, Nausea & Vomiting cephalexin monohydrate Allergy Rash/Hives Verified 05/04/20 09:06 [From Keflex] ibuprofen Allergy Nausea & Verified 05/04/20 09:06 Vomiting, Lightheaded., Has Samters Triad. propoxyphene napsylate Allergy Nausea & Verified 05/04/20 09:06 [From Darvocet-N 100] Vomiting yeast Allergy Severe congestion Uncoded 05/04/20 09:06
[~2020-05-08 09:08] MED LIST changes: +ACETAMINOPHEN TAB 500 MG TAB PO PRN; -CHLORHEXIDINE GLUCONATE 15 ML CUP MUCOUS MEM ONE; -CLINDAMYCIN 900 MG in DEXTROSE 5% IN WATER 50 ML IVPB ONE; -DEXAMETHASONE SOD PHOSPHATE 10 MG/ML 1 ML VIAL IV ONE; +DEXAMETHASONE SOD PHOSPHATE 4 MG/ML 1 ML VIAL IV ONE; -ENOXAPARIN 40 MG/0.4 ML SYRINGE SQ STA; +GABAPENTIN 300 MG CAP PO PRN; -GENTAMICIN 400 MG in SODIUM CHLORIDE 0.9% 100 ML IVPB ONE; +HEPARIN SODIUM,PORCINE 5,000 UNIT/ML 1 ML VIAL SQ PRN; +LACTATED RINGERS 1,000 ML IV SCH; -MIDAZOLAM 2 MG/2 ML VIAL IV PRN; -PANTOPRAZOLE 40 MG/10 ML VIAL IV STA; -SCOPOLAMINE 1.5MG/72HR PATCH TRANSDERM ONE; +SCOPOLAMINE 1.5MG/72HR PATCH TRANSDERM PRN
[2020-05-08] MEDS ORDERED: LIDOCAINE 1% (10MG/ML) FOR IV START INTRADERMA ONE (10:14)
[2020-05-08] MEDS ORDERED: LIDOCAINE 1% INJ 10MG/ML (20 ML MDV) ONE ×3 (10:45→11:13)
[2020-05-08] MEDS ORDERED: MIDAZOLAM 2 MG/2 ML VIAL IV ONE (10:46)
[2020-05-08] MEDS ORDERED: LIDOCAINE 0.5%-EPI 1:200,000 50 ML VIAL SQ ONE ×2 (10:52→11:15)
[2020-05-08] MEDS ORDERED: CLINDAMYCIN 150 MG/ML 4 ML VIAL ONE (11:13)
[2020-05-08] MEDS ORDERED: ROPIVACAINE 5 MG/ML 30 ML VIAL ONE (11:13)
[2020-05-08] MEDS ORDERED: MIDAZOLAM 2 MG/2 ML VIAL ONE (11:13)
[2020-05-08] MEDS ORDERED: NEOSTIGMINE 1 MG/ML 10 ML VIAL ONE (11:13)
[2020-05-08] MEDS ORDERED: SUCCINYLCHOLINE CHLORIDE 100 MG/5 ML SYR IV ONE (11:13)
[2020-05-08] MEDS ORDERED: ROCURONIUM 10 MG/ML (5 ML VIAL) IV ONE ×2 (11:13)
[2020-05-08] MEDS ORDERED: PROPOFOL 10 MG/ML 20 ML VIAL IV ONE (11:13)
[2020-05-08] MEDS ORDERED: GLYCOPYRROLATE 0.2 MG/ML 2 ML VIAL ONE (11:13)
[2020-05-08] MEDS ORDERED: LACTATED RINGERS 1,000 ML IV ONE (12:08)
[2020-05-08 12:56] VITALS: TEMP 97.2
[2020-05-08 13:05] VITALS: RESP 16
--- NOTE | 2020-05-08 13:25 | P.ANPRN ---
Procedure Note - Anesthesia - Nerve Block Performed Bilateral Erector Spinae Single Time Out Performed: Yes Date of Procedure: 05/08/20 Procedure Start Time: : Procedure Stop Time: :09 Location of Patient: PreOp Indication: Acute Post-Operative Pain, Requested by Surgeon Sedation Type: Sedate with meaningful contact maintained Preparation: Sterile Prep Position: Prone Needle Gauge: 21 Ultrasound used to visualize needle placement: Yes Ultrasound used to observe medication spread: Yes Blood Aspirated: No Pain Paresthesia on Injection Noted: No Resistance on Injection: Normal Image Stored and Saved: Yes Events: Uneventful and Well Tolerated (ropi .5% 15cc plus xylo 1% 10cc bilaterally)
[2020-05-08 14:20] VITALS: BP 102/67; PULSE 53
--- NOTE | 2020-05-08 20:32 | P.OP ---
Date of Procedure: 05/08/20 Description of Procedure: SURGEON: MARILYN SANCHES MD PREOPERATIVE DIAGNOSES: 1. Left upper quadrant abdominal pain 2. History of multiple abdominal surgeries with peritoneal adhesions 3. Hypothyroidism 4. Spinal stenosis 5. Osteoarthritis of the lower back. 6. Hypertensive heart disease 7. Supraventricular tachycardia 8. Gastroesophageal reflux disease, now resolved 9. Asthma 10. Anxiety disorder 11. Chronic obstructive pulmonary disorder 12. Rheumatoid arthritis 13. Recurrent hiatal hernia repair 14. Erosive esophagitis, resolved 15. Status port gastric bypass 16. Vitamin A deficiency 17. Iron deficiency, resolved 18. Panniculitis 19. Previous morbid obesity due to excess calories 20. Body mass index of 40.8 down to 25.7 POSTOPERATIVE DIAGNOSES: 1. Left upper quadrant abdominal pain 2. History of multiple abdominal surgeries with peritoneal adhesions 3. Hypothyroidism 4. Spinal stenosis 5. Osteoarthritis of the lower back. 6. Hypertensive heart disease 7. Supraventricular tachycardia 8. Gastroesophageal reflux disease, now resolved 9. Asthma 10. Anxiety disorder 11. Chronic obstructive pulmonary disorder 12. Rheumatoid arthritis 13. Recurrent hiatal hernia repair 14. Erosive esophagitis, resolved 15. Status port gastric bypass 16. Vitamin A deficiency 17. Iron deficiency, resolved 18. Panniculitis 19. Previous morbid obesity due to excess calories 20. Body mass index of 40.8 down to 25.7 OPERATION: 1. Robotic-assisted da Yissel Xi laparoscopic with extensive lysis of adhesions over 1 hr ESTIMATED BLOOD LOSS: 5 mL. SPECIMENS REMOVED: None. COMPLICATIONS: None. OPERATIVE FINDINGS: 1. No ventral hernias identified. 2. Adhesions along the left upper quarant 3. Moderately redundant transverse colon to the pelvis including moderate redundant splenic flexure to the diaphragm 4. Complete scarring of Torres defect and jejunojejunostomy mesenteric defect 5. Adhesion of gastrojejunal anastomosis to the retroperitoneum lysed 6. Normal terminal ileum and cecum unremarkable. INDICATIONS: The patient is a 60-year-old female who presents with epigastric abdominal pain including left upper quadrant abdominal pain. Surgical intervention with diagnostic laparoscopy, lysis of adhesions were described. Informed consent was obtained. Robotic assisted laparoscopic approach was described. Benefits and risks of the procedure including but not limited to bleeding, infection, injury to the small bowel was described. Informed consent was obtained. DESCRIPTION OF PROCEDURE: Patient was brought to the operating room, placed in supine position. After general induction, the abdomen had been prepped and dr aped in standard sterile fashion. The robotic da Yissel XI system was primed. After a timeout protocol was performed, the patient had been prepped and draped in standard sterile fashion. The robot was docked along the right lateral abdomen. The patient was repositioned in with right side up. Please note prior to docking of the robot; however, a 5 mm 0 degrees laparoscopic trocar entry was performed along the left upper quadrant. The abdomen was insufflated to 15 mmHg pressure which she tolerated well. Diagnostic laparoscopy was performed. Next, three 8 mm robotic ports were placed along the right lateral abdominal wall. The camera 8-mm port was maintained along mid-lateral abdomen. Please note that the ports were placed at least 10 to 15 cm away from the target anatomy. Instruments including graspers and vessel sealer were interchanged by the captain's assistant. I had sat at the console. No evidence of incisional hernia was identified. The rest of the abdomen was unremarkable for small bowel pathology. The small bowel from the sabina limb to distal ileum was inspected. The small bowel was investigated from the terminal ileum to the ligament of Treitz. Abnormal adhesions of the left upper quadrant retroperitoneum to the jejunojejunostomy was identified and divided. Adhesions along the epigastrium linvolving the transverse colon to the sabina limb was lysed using vessel sealer. No herniation of bowel was found along the Torres defect or jejunojejunostomy mesenteric defects which were scared. Adhesion of gastrojejunal anastomosis to the anterior abdominal wall was released. Redundant splenic flexure to diaphragm was found. The transverse colon was redundant to the pelvis. The terminal ileum and cecum was unremarkable. Extensive lysis of adhesions over 1 hr was performed. The small bowel was viable.The robot was undocked. All pneumoperitoneum instruments were evacuated from the abdominal cavity. The incisions were reapproximated using 4-0 Monocryl in an interrupted subcuticular fashion. Please note along the trocar sites, local anesthetic was placed as a field block prior to insertion of all instruments. Exofin was applied to the skin. At the end of the procedure needle, sponge, and instrument count had been verified correct by the cardiovascular surgical tech. The patient was transferred to postanesthesia care unit in stable condition. Plan - Discharge Summary Discharge Rx Participant: No New Discharge Prescriptions: New Acetaminophen Tab [Tylenol Tab] 1,000 mg PO Q6HR PRN #30 tablet PRN Reason: Pain Simethicone 40 mg/0.6 ml Drops [Mylicon Drops] 40 mg PO Q6HR PRN #30 ml PRN Reason: Abdominal Distention Continue Potassium Chloride [Klor-Con M10] 10 meq PO DAILY Furosemide 40 mg PO DAILY Levocetirizine Dihydrochloride [Xyzal] 5 mg PO DAILY Montelukast Sodium [Singulair] 10 mg PO HS Albuterol Sulfate [Proair Hfa] 2 puff INHALATION RT-QID PRN PRN Reason: Shortness Of Breath Azelastine HCl [Astepro] 1 spray NASAL BID PRN PRN Reason: Allergy Symptoms Mometasone Furoate [Nasonex Nasal [place]] 2 spr EA NOSTRIL DAILY@1300 Albuterol Nebulized (Conc) [Ventolin Nebulized (Conc)] 2.5 mg INHALATION RT- QID PRN PRN Reason: Wheezing Multivitamins, Thera [Multivitamin (formulary)] 1 tab PO DAILY Calcium Citrate 1,200 mg PO DAILY Vitamin A 10,000 unit PO DAILY Dupilumab [Dupixent Syringe] 300 mg SQ Q14D Cholecalciferol [Vitamin D3 (25 Mcg = 1000 Iu)] 250 mcg PO DAILY Ferrous Sulfate [Iron (65 MG Elemental)] 325 mg PO DAILY Levothyroxine Sodium [Synthroid] 137 mcg PO QAM Discharge Medication List Furosemide 40 mg PO DAILY 09/29/13 [History] Levocetirizine Dihydrochloride [Xyzal] 5 mg PO DAILY 09/29/13 [History] Potassium Chloride [Klor-Con M10] 10 meq PO DAILY 09/29/13 [History] Montelukast Sodium [Singulair] 10 mg PO HS 09/12/14 [History] Albuterol Sulfate [Proair Hfa] 2 puff INHALATION RT-QID PRN 07/09/17 [History] Azelastine HCl [Astepro] 1 spray NASAL BID PRN 07/09/17 [History] Mometasone Furoate [Nasonex Nasal [place]] 2 spr EA NOSTRIL DAILY@1300 07/09/17 [History] Albuterol Nebulized (Conc) [Ventolin Nebulized (Conc)] 2.5 mg INHALATION RT-QID PRN 01/15/18 [History] Calcium Citrate 1,200 mg PO DAILY 03/24/19 [History] Multivitamins, Thera [Multivitamin (formulary)] 1 tab PO DAILY 03/24/19 [History] Vitamin A 10,000 unit PO DAILY 03/24/19 [History] Dupilumab [Dupixent Syringe] 300 mg SQ Q14D 04/14/19 [History] Cholecalciferol [Vitamin D3 (25 Mcg = 1000 Iu)] 250 mcg PO DAILY 07/14/19 [History] Ferrous Sulfate [Iron (65 MG Elemental)] 325 mg PO DAILY 07/14/19 [History] Levothyroxine Sodium [Synthroid] 137 mcg PO QAM 01/26/20 [History] Acetaminophen Tab [Tylenol Tab] 1,000 mg PO Q6HR PRN #30 tablet 05/08/20 [Rx] Simethicone 40 mg/0.6 ml Drops [Mylicon Drops] 40 mg PO Q6HR PRN #30 ml 05/08/20 [Rx] [facility] [place] [place] [facility]12/20 9:00 am Patient Instructions/Handouts: *Surgery [facility] - (Anesthesia) Discharge Instructions Outpatient Surgery, Lysis of Abdominal Adhesions (DC) Activity/Diet/Wound Care/Special Instructions: No lifting over 10 pounds in 2 weeks until Oct 31June shower. No bath tub soaks for two weeks until May 22 Diet as tolerated. Use Tylenol scheduled for the next 24-48 hours for best pain relief. Use ice along incisions for today to prevent swelling. Takes simethicone for gas pain Discharge Disposition: HOME SELF-CARE
== END 2020-05-08 14:27 | disposition home or self-care (01) ==
LOC: OR 09:08
PROVIDERS: ATTEND Surgery Plastic and Reconstructive Surgery
DX: K66.0 Peritoneal adhesions (postprocedural) (postinfection) (principal); Q43.8 Other specified congenital malformations of intestine; Z98.890 Other specified postprocedural states; E03.9 Hypothyroidism, unspecified; M48.00 Spinal stenosis, site unspecified; M47.896 Other spondylosis, lumbar region; I11.9 Hypertensive heart disease without heart failure; I47.1 Supraventricular tachycardia; Z87.19 Personal history of other diseases of the digestive system; F41.9 Anxiety disorder, unspecified; J44.9 Chronic obstructive pulmonary disease, unspecified; M06.9 Rheumatoid arthritis, unspecified; Z98.84 Bariatric surgery status; E50.9 Vitamin A deficiency, unspecified; Z86.2 Personal history of diseases of the blood and blood-forming organs and certain disorders involving the immune mechanism; M79.3 Panniculitis, unspecified; J40 Bronchitis, not specified as acute or chronic; Z88.5 Allergy status to narcotic agent; Z88.1 Allergy status to other antibiotic agents; Z88.6 Allergy status to analgesic agent; Z91.09 Other allergy status, other than to drugs and biological substances; Z90.710 Acquired absence of both cervix and uterus; Z96.642 Presence of left artificial hip joint; Z98.1 Arthrodesis status; Z96.653 Presence of artificial knee joint, bilateral; Z87.891 Personal history of nicotine dependence; Z79.899 Other long term (current) drug therapy; Z79.890 Hormone replacement therapy; Z91.010 Allergy to peanuts; Z91.02 Food additives allergy status; Z97.2 Presence of dental prosthetic device (complete) (partial); Z80.9 Family history of malignant neoplasm, unspecified
CPT/HCPCS: 44180; S2900; 64999; 76942

== ENCOUNTER → 2020-05-12 | Outpatient (CLI) | payer OTHER, MEDICARE ==
[2020-05-12 09:13] VITALS: BP 121/81; PULSE 76; TEMP 98.1; BMI 25.4
--- NOTE | 2020-05-12 10:35 | P.PN ---
Subjective Progress Note Date: 05/12/20 DATE OF SERVICE: 05/12/2020 CHIEF COMPLAINT: Lower abdominal pain, new HISTORY OF PRESENT ILLNESS: Jazmin Castañeda is a 60-year-old female status post gastric bypass 12/21/18. She is 2 years out. She is status post lysis of adhesions 05/08/2020 for left upper quadrant abdominal pain. She reports her pre vious left upper quadrant abdominal pain prior to surgery is now completely resolved. Intraoperative findings includes new bilateral inguinal hernias. Additionally, she does confirm intermittent bilateral groin pain. She comes in with symptomatic pannus with rash and irritation. At height of 5 feet 4 inches, her ideal body weight is 144 pounds. Highest 237 pounds, BMI 40.8. Today, she comes in 148 pounds from 151 pounds, 4 weeks ago. She has lost 3 pounds in 1 month. Lifetime weight loss of 89 pounds. Her body mass index is down from 40.8 to 25.4. Percent excess weight loss lifetime is 96 %. PAST MEDICAL HISTORY: 1. Morbid obesity due to excess calories 2. Body mass index of 39.0 3. Hypothyroidism 4. Spinal stenosis 5. Osteoarthritis of the lower back. 6. Hypertensive heart disease. 7. Supraventricular tachycardia 8. Gastroesophageal reflux disease 9. Asthma 10. Anxiety disorder 11. Chronic obstructive pulmonary disorder 12. Rheumatoid arthritis PAST SURGICAL HISTORY: 1. Spinal fusion 2. Hysterectomy 3. Left hip replacement 4. Bilateral knee replacement 5. Blanca fundoplasty 6. Colonoscopy 7. Upper endoscopy 8. Nasal extraction polyp 9. Hiatal hernia repair 10. Status post gastric bypass HOME MEDICATIONS: Home Medications Medication Instructions Recorded Confirmed Furosemide 40 mg PO DAILY 09/29/13 05/12/20 Levocetirizine Dihydrochloride 5 mg PO DAILY 09/29/13 05/12/20 [Xyzal] Potassium Chloride [Klor-Con M10] 10 meq PO DAILY 09/29/13 05/12/20 Montelukast Sodium [Singulair] 10 mg PO HS 09/12/14 05/12/20 Albuterol Sulfate [Proair Hfa] 2 puff INHALATION RT-QID PRN 07/09/17 05/12/20 Azelastine HCl [Astepro] 1 spray NASAL BID PRN 07/09/17 05/12/20 Mometasone Furoate [Nasonex Nasal 2 spr EA NOSTRIL DAILY@1300 07/09/17 05/12/20 [place]] Albuterol Nebulized (Conc) 2.5 mg INHALATION RT-QID PRN 01/15/18 05/12/20 [Ventolin Nebulized (Conc)] Calcium Citrate 1,200 mg PO DAILY 03/24/19 05/12/20 Multivitamins, Thera [Multivitamin 1 tab PO DAILY 03/24/19 05/12/20 (formulary)] Vitamin A 10,000 unit PO DAILY 03/24/19 05/12/20 Dupilumab [Dupixent Syringe] 300 mg SQ Q14D 04/14/19 05/12/20 Cholecalciferol [Vitamin D3 (25 250 mcg PO DAILY 07/14/19 05/12/20 Mcg = 1000 Iu)] Ferrous Sulfate [Iron (65 MG 325 mg PO DAILY 07/14/19 05/12/20 Elemental)] Levothyroxine Sodium [Synthroid] 137 mcg PO QAM 01/26/20 05/12/20 Previous Rx's Medication Instructions Recorded Acetaminophen Tab [Tylenol Tab] 1,000 mg PO Q6HR PRN #30 tablet 05/08/20 Simethicone 40 mg/0.6 ml Drops 40 mg PO Q6HR PRN #30 ml 05/08/20 [Mylicon Drops] Nystatin 100,000 Unit/gm Powd 1 applic TOPICAL BID #60 powder 05/12/20 [Mycostatin Powder] ALLERGIES: Allergies Allergy/AdvReac Type Severity Reaction Status Date / Time peanut Allergy Severe Anaphylaxis Verified 05/08/20 09:59 NSAIDS (Non-Steroidal Allergy Unknown Nausea & Verified 05/08/20 09:59 Anti-Inflamma Vomiting, Lightheaded., Has samters Triad. adhesive Allergy Rash/Hives Verified 05/08/20 09:59 aspirin Allergy Has Verified 05/08/20 09:59 Samters Triad, Nausea & Vomiting cephalexin monohydrate Allergy Rash/Hives Verified 05/08/20 09:59 [From Keflex] ibuprofen Allergy Nausea & Verified 05/08/20 09:59 Vomiting, Lightheaded., Has Samters Triad. propoxyphene napsylate Allergy Nausea & Verified 05/08/20 09:59 [From Darvocet-N 100] Vomiting yeast Allergy Severe congestion Uncoded 05/08/20 09:59 SOCIAL HISTORY: Past tobacco use. FAMILY HISTORY: No family history of ulcerative colitis disease or Crohn's disease. Family history of morbid obesity. No lupus in the family. No reports of stomach or esophageal cancer. REVIEW OF ORGAN SYSTEMS: CONSTITUTIONAL: At height of 5 feet 4 inches, her ideal body weight is 144 pounds. Was 237 pounds. Her body mass index is 40.8. HEENT: Denies any active troubles with vision or hearing. Denies troubles with swallowing. ENDOCRINE: No diabetes. Has hypothyroidism. CARDIOVASCULAR: History of palpitations. No heart attacks or chest pain. RESPIRATORY: Resolved daytime somnolence. Has asthma. Has COPD. GI: Denies any bright red blood per rectum. No diarrhea. Has constipation. Resolved recurrent gastroesophageal reflux disease. MUSCULOSKELETAL: Has lower back pain and joint pain. Has osteoarthritis of the knees. NEURO: No headaches. No seizure disorders. PSYCH: Has depression. No suicidal ideation. RHEUMATOLOGIC: No lupus. Has rheumatoid arthritis. HEMATOLOGIC: Denies any abnormal bleeding or bruising. No personal history of DVTs. SKIN: Has panniculitis. No skin cancer. PHYSICAL EXAM: VITAL SIGNS: Height 5 foot 4 inches, weight 148 pounds. BMI 25.4 Vital Signs Temp 98.1 F 05/12/20 09:10 Pulse 76 05/12/20 09:10 Resp BP 121/81 05/12/20 09:10 Pulse Ox HEENT: No scleral icterus. Extraocular movements grossly intact. Hears conversational speech. No nasal drainage. NECK: Supple without lymphadenopathy. CHEST: Nonlabored respirations with equal bilateral excursions. CARDIOVASCULAR: Regular rate and rhythm. Distal 2+ pulses. ABDOMEN: Incisions clean dry and intact. No cellulitis. Panniculitis identified. Grade 2 panniculus. MUSCULOSKELETAL: No clubbing, cyanosis. No edema NEURO: No focal or lateralizing signs. Cranial nerves 2 through 12 grossly within normal limits. PSYCH: Appropriate affect. Alert and oriented to person, place and time. SKIN: Good skin turgor. Well perfused. Has panniculitis of the abdomen. EK reviewed with normal sinus rhythm OPERATIVE FINDINGS: 1. No ventral hernias identified. 2. Adhesions along the left upper quarant 3. Moderately redundant transverse colon to the pelvis including moderate redundant splenic flexure to the diaphragm 4. Complete scarring of Torres defect and jejunojejunostomy mesenteric defect 5. Adhesion of gastrojejunal anastomosis to the retroperitoneum lysed 6. Normal terminal ileum and cecum unremarkable. 7. Bilateral inguinal hernias ASSESSMENT: 1. Morbid obesity due to excess calories, resolved 2. Body mass index of 40.8 down to 25.4 3. Hypothyroidism 4. Spinal stenosis 5. Osteoarthritis of the lower back. 6. Hypertensive heart disease, resolved. 7. Supraventricular tachycardia, resolved 8. Gastroesophageal reflux disease, now resolved 9. Asthma, improved. 10. Anxiety disorder 11. Chronic obstructive pulmonary disorder 12. Rheumatoid arthritis 13. Recurrent hiatal hernia repair 14. Erosive esophagitis, resolved 15. Status port gastric bypass 16. Vitamin A deficiency 17. Iron deficiency, resolved 18. Panniculitis 19. Left upper quadrant abdominal pain 20. Peritoneal adhesions 21. Bilateral femoral hernias, new PLAN: 1. She confirms bilateral inguinal pain. She also has bilateral inguinal hernias. Recommend repair of bilateral inguinal hernia for symptoms. Robotic inguinal hernia repair described. 2. She complains of rash persisted along her pannus with symptomatic irritation. Recommend follow-up with hotel service supervisor. May benefit from panniculectomy. 3. At minimum 30 days prior to next procedure for bilateral inguinal hernia for healing prior to next procedure. 4. Recommend pictures of active panniculitis. Objective - Vital Signs Vital signs: Vital Signs Temp 98.1 F 05/12/20 09:10 Pulse 76 05/12/20 09:10 Resp BP 121/81 05/12/20 09:10 Pulse Ox Intake & Output 05/11/20 05/12/20 05/12/20 18:59 06:59 18:59 Weight 67.132 kg
== END ==
LOC: BARWHC3 08:25
PROVIDERS: ATTEND Surgery Plastic and Reconstructive Surgery
DX: R10.12 Left upper quadrant pain (principal); E66.01 Morbid (severe) obesity due to excess calories; E03.9 Hypothyroidism, unspecified; F41.9 Anxiety disorder, unspecified; M06.9 Rheumatoid arthritis, unspecified; K44.9 Diaphragmatic hernia without obstruction or gangrene; Z98.84 Bariatric surgery status; M79.3 Panniculitis, unspecified; I11.9 Hypertensive heart disease without heart failure; K40.20 Bilateral inguinal hernia, without obstruction or gangrene, not specified as recurrent; K41.20 Bilateral femoral hernia, without obstruction or gangrene, not specified as recurrent; I47.1 Supraventricular tachycardia; E50.9 Vitamin A deficiency, unspecified; M47.9 Spondylosis, unspecified; J44.9 Chronic obstructive pulmonary disease, unspecified; K66.0 Peritoneal adhesions (postprocedural) (postinfection); M48.00 Spinal stenosis, site unspecified; Z87.891 Personal history of nicotine dependence; Z68.25 Body mass index [BMI] 25.0-25.9, adult
CPT/HCPCS: 99211

== ENCOUNTER → 2020-06-02 | Outpatient (CLI) | payer MEDICARE ==
[2020-06-02 15:39] LABS: Basophils # (A) 0.1 k/uL (0-0.2); Basophils % (A) 1 %; Eosinophils # (A) 0.6 k/uL (0-0.7); Eosinophils % (A) 7 %; HCT 42.3 % (34.0-46.0); HGB 14.4 gm/dL (11.4-16.0); Lymphocytes # (A) 3.3 k/uL (1.0-4.8); Lymphocytes % (A) 41 %; MCH 30.2 pg (25.0-35.0); MCHC 34.1 g/dL (31.0-37.0); MCV 88.8 fL (80.0-100.0); Mean Platelet Volume 7.3; Monocytes # (A) 0.4 k/uL (0-1.0); Monocytes % (A) 5 %; Neutrophils # (A) 3.4 k/uL (1.3-7.7); Neutrophils % (A) 42 %; Platelet Count 306 k/uL (150-450); RBC 4.76 m/uL (3.80-5.40); WBC 8.1 k/uL (3.8-10.6)
== END | disposition home or self-care (01) ==
LOC: LABPAT 15:15
PROVIDERS: ATTEND Surgery Plastic and Reconstructive Surgery
DX: Z01.812 Encounter for preprocedural laboratory examination (principal); E87.6 Hypokalemia
CPT/HCPCS: 36415; 84132; 85025

== ENCOUNTER 2020-06-12 09:05 | Day surgery (SDC) | payer MEDICARE, OTHER ==
[2020-06-08 10:07] VITALS: BMI 25.5
--- NOTE | 2020-06-12 08:02 | P.GSHP ---
History of Present Illness H&P Date: 06/12/20 CHIEF COMPLAINT: Inguinal hernia, bilateral HISTORY OF PRESENT ILLNESS: The patient is a 60-year-old female who presents with a history of swelling and pain along the groins. She's noted increased swelling including pain of the area. Now he presents for repair of her inguinal hernia. PAST MEDICAL HISTORY: Please see list. PAST SURGICAL HISTORY: Please see list. MEDICATIONS: Please see list. ALLERGIES: Please see list. SOCIAL HISTORY: No illicit drug use FAMILY HISTORY: No reports of Crohn disease or ulcerative colitis. REVIEW OF ORGAN SYSTEMS: CONSTITUTIONAL: No reports of fevers or chills. No reports of weight loss despite prior attempts. GI: Denies any blood in stools or constipation. PHYSICAL EXAM: VITAL SIGNS: Stable GENERAL: Well-developed pleasant male in no acute distress. HEENT: No scleral icterus. Extraocular movements grossly intact. Moist buccal mucosa. NECK: Supple without lymphadenopathy. CHEST: Unlabored respirations. Equal bilateral excursions. CARDIOVASCULAR: Regular rate and rhythm. Distal 2+ pulses. ABDOMEN: Soft, nondistended. No peritoneal signs. Palpable defect of the groin MUSCULOSKELETAL: No clubbing, cyanosis, or edema. ASSESSMENT: 1. Inguinal hernia, bilateral PLAN: 1. Recommend proceeding with a robotic inguinal repair with mesh with bilateral approach. 2. Benefits and risks of surgical intervention was discussed including possibility of open technique. 3. DVT prophylaxis. 4. Antibiotic prophylaxis. Past Medical History Past Medical History: Asthma, COPD, GERD/Reflux, Osteoarthritis (OA), Rheumatoid Arthritis (RA), Supraventricular Tachycardia (SVT), Thyroid Disorder Additional Past Medical History / Comment(s): Hx Bronchitis, reflux, SPINAL STENOSIS, IODINE TX TO environmental allergies, intermittent bilateral ankle swelling. Received both Covid Vaccines. History of Any Multi-Drug Resistant Organisms: None Reported Past Surgical History: Back Surgery, Bariatric Surgery, Hernia Repair, Hysterectomy, Joint Replacement, Orthopedic Surgery Additional Past Surgical History / Comment(s): COLONOSCOPY, SPINAL FUSION, EMIR FUNDOPLICATION, left hip replacment, bilateral knee replacements, nasal polyps X6, hiatal hernia repair, [place]-Y, lysis of adhesions. Past Anesthesia/Blood Transfusion Reactions: No Reported Reaction Additional Past Anesthesia/Blood Transfusion Reaction / Comment(s): No problems with prior blood transfusion. Past Psychological History: Anxiety Smoking Status: Former smoker Past Alcohol Use History: None Reported Additional Past Alcohol Use History / Comment(s): Smoked 1/2 PPD. Past Drug Use History: None Reported - Past Family History Father Family Medical History: Cancer Mother Family Medical History: No Reported History Medications and Allergies Home Medications Medication Instructions Recorded Confirmed Type Furosemide 40 mg PO DAILY 09/29/13 06/08/20 History Levocetirizine Dihydrochloride 5 mg PO DAILY 09/29/13 06/08/20 History [Xyzal] Potassium Chloride [Klor-Con M10] 10 meq PO DAILY 09/29/13 06/08/20 History Montelukast Sodium [Singulair] 10 mg PO HS 09/12/14 06/08/20 History Albuterol Sulfate [Proair Hfa] 2 puff INHALATION RT-QID PRN 07/09/17 06/08/20 History Azelastine HCl [Astepro] 1 spray NASAL BID PRN 07/09/17 06/08/20 History Mometasone Furoate [Nasonex Nasal 2 spr EA NOSTRIL DAILY@1300 PRN 07/09/17 06/08/20 History [place]] Albuterol Nebulized (Conc) 2.5 mg INHALATION RT-QID PRN 01/15/18 06/08/20 History [Ventolin Nebulized (Conc)] Calcium Citrate 1,200 mg PO DAILY 03/24/19 06/08/20 History Multivitamins, Thera [Multivitamin 1 tab PO DAILY 03/24/19 06/08/20 History (formulary)] Vitamin A 10,000 unit PO DAILY 03/24/19 06/08/20 History Dupilumab [Dupixent Syringe] 300 mg SQ Q14D 04/14/19 06/08/20 History Cholecalciferol [Vitamin D3 (25 250 mcg PO DAILY 07/14/19 06/08/20 History Mcg = 1000 Iu)] Ferrous Sulfate [Iron (65 MG 325 mg PO DAILY 07/14/19 06/08/20 History Elemental)] Levothyroxine Sodium [Synthroid] 137 mcg PO QAM 01/26/20 06/08/20 History Simethicone 40 mg/0.6 ml Drops 40 mg PO Q6HR PRN #30 ml 05/08/20 06/08/20 Rx [Mylicon Drops] Nystatin 100,000 Unit/gm Powd 1 applic TOPICAL BID #60 powder 05/12/20 06/08/20 Rx [Mycostatin Powder] Allergies Allergy/AdvReac Type Severity Reaction Status Date / Time peanut Allergy Severe Anaphylaxis Verified 06/08/20 09:53 NSAIDS (Non-Steroidal Allergy Unknown Nausea & Verified 06/08/20 09:53 Anti-Inflamma Vomiting, Lightheaded., Has samters Triad. adhesive Allergy Rash/Hives Verified 06/08/20 09:53 aspirin Allergy Has Verified 06/08/20 09:53 Samters Triad, Nausea & Vomiting cephalexin monohydrate Allergy Rash/Hives Verified 06/08/20 09:53 [From Keflex] ibuprofen Allergy Nausea & Verified 06/08/20 09:53 Vomiting, Lightheaded., Has Samters Triad. propoxyphene napsylate Allergy Nausea & Verified 06/08/20 09:53 [From Darvocet-N 100] Vomiting yeast Allergy Severe congestion Uncoded 06/08/20 09:53
[~2020-06-12 09:05] MED LIST changes: -HEPARIN SODIUM,PORCINE 5,000 UNIT/ML 1 ML VIAL SQ PRN; +HEPARIN SODIUM,PORCINE/PF 5,000 UNIT/0.5 ML SYRINGE SQ PRN; +LIDOCAINE 1% (10MG/ML) FOR IV START INTRADERMA PRN; +SCOPOLAMINE 1.5MG/72HR PATCH TRANSDERM ONE; -SCOPOLAMINE 1.5MG/72HR PATCH TRANSDERM PRN
[2020-06-12 10:46] VITALS: TEMP 98.4
[2020-06-12] MEDS ORDERED: MIDAZOLAM 2 MG/2 ML VIAL IVP ONE (10:59)
--- NOTE | 2020-06-12 11:27 | P.ANPRN ---
Procedure Note - Anesthesia - Nerve Block Performed Bilateral Erector Spinae Single Time Out Performed: Yes Date of Procedure: 06/12/20 Procedure Start Time: 10:58 Procedure Stop Time: 11:07 Location of Patient: PreOp Indication: Acute Post-Operative Pain, Requested by Surgeon Sedation Type: Sedate with meaningful contact maintained Preparation: Sterile Prep Position: Prone Needle Types: Pajunk Needle Gauge: 21 Ultrasound used to visualize needle placement: Yes Ultrasound used to observe medication spread: Yes Blood Aspirated: No Pain Paresthesia on Injection Noted: No Resistance on Injection: Normal Image Stored and Saved: Yes Events: Uneventful and Well Tolerated (ropi .5% 15cc plus xylo 1% with epi 15cc at t12 bilaterally)
[2020-06-12] MEDS ORDERED: DEXAMETHASONE SOD PHOSPHATE 4 MG/ML 1 ML VIAL IV ONE (12:26)
[2020-06-12] MEDS ORDERED: NEOSTIGMINE 1 MG/ML 10 ML VIAL ONE (12:32)
[2020-06-12] MEDS ORDERED: PROPOFOL 10 MG/ML 20 ML VIAL IV ONE (12:32)
[2020-06-12] MEDS ORDERED: ROCURONIUM 10 MG/ML (5 ML VIAL) IV ONE (12:32)
[2020-06-12] MEDS ORDERED: LIDOCAINE 1% INJ 10MG/ML (20 ML MDV) ONE (12:32)
[2020-06-12] MEDS ORDERED: diphenhydrAMINE 50 MG/ML 1 ML VIAL ONE (12:32)
[2020-06-12] MEDS ORDERED: fentaNYL (PF) 50 MCG/ML 2 ML AMP ONE (12:32)
[2020-06-12] MEDS ORDERED: ROPIVACAINE 5 MG/ML 30 ML VIAL ONE (12:32)
[2020-06-12] MEDS ORDERED: SUCCINYLCHOLINE CHLORIDE 100 MG/5 ML SYR IV ONE (12:32)
[2020-06-12] MEDS ORDERED: GLYCOPYRROLATE 0.2 MG/ML 2 ML VIAL ONE (12:32)
[2020-06-12] MEDS ORDERED: LIDOCAINE 1%-EPI 1:100,000 20 ML VIAL ONE (12:32)
[2020-06-12] MEDS ORDERED: LIDOCAINE 1%-EPI 1:100,000 20 ML VIAL SQ ONE (13:23)
[2020-06-12 14:36] VITALS: RESP 16
[2020-06-12 15:48] VITALS: BP 110/56; PULSE 59
--- NOTE | 2020-06-12 17:53 | P.OP ---
Date of Procedure: 06/12/20 Description of Procedure: SURGEON: MARILYN SANCHES MD PREOPERATIVE DIAGNOSES: 1. Initial bilateral inguinal hernia 2. History of multiple abdominal surgeries with peritoneal adhesions 3. Hypothyroidism 4. Spinal stenosis 5. Osteoarthritis of the lower back. 6. Hypertensive heart disease 7. Supraventricular tachycardia 8. Gastroesophageal reflux disease, now resolved 9. Asthma 10. Anxiety disorder 11. Chronic obstructive pulmonary disorder 12. Rheumatoid arthritis 13. Recurrent hiatal hernia repair 14. Erosive esophagitis, resolved 15. Status port gastric bypass 16. Vitamin A deficiency 17. Iron deficiency, resolved 18. Panniculitis 19. Previous morbid obesity due to excess calories 20. Body mass index of 40.8 down to 25.5 POSTOPERATIVE DIAGNOSES: 1. Initial right inguinal hernia indirect without incarceration, 2 cm with inguinal lipoma, 2 cm 2. Initial left inguinal hernia, indirect without incarceration, 3 cm with inguinal lipoma, 4 cm 3. Hypothyroidism 4. Spinal stenosis 5. Osteoarthritis of the lower back. 6. Hypertensive heart disease 7. Supraventricular tachycardia 8. Gastroesophageal reflux disease, now resolved 9. Asthma 10. Anxiety disorder 11. Chronic obstructive pulmonary disorder 12. Rheumatoid arthritis 13. Recurrent hiatal hernia repair 14. Erosive esophagitis, resolved 15. Status port gastric bypass 16. Vitamin A deficiency 17. Iron deficiency, resolved 18. Panniculitis 19. Previous morbid obesity due to excess calories 20. Body mass index of 40.8 down to 25.5 OPERATION: 1. Robotic-assisted da Yissel Xi laparoscopic repair of initial incarcerated right direct inguinal hernia with mesh, 11.[address] 2. Robotic-assisted da Yissel Xi laparoscopic repair of initial incarcerated left direct inguinal hernia with mesh, 11.[address] 3. Resection of subfascial incarcerated right inguinal lipoma, 2 cm 4. Resection of subfascial incarcerated left inguinal lipoma, 4 cm ANESTHESIA: General with local anesthetic and regional block ESTIMATED BLOOD LOSS: 5 mL. SPECIMENS: 1. Right inguinal hernia sac with inguinal lipoma 2. Left inguinal hernia sac with inguinal lipoma COMPLICATIONS: None. FINDINGS: 1. Incarcerated initial left inguinal hernia, 4 cm, indirect with incarcerated subfascial left inguinal lipoma 2. Right inguinal hernia, 2 cm, indirect with 2 cm subfascial inguinal lipoma INDICATIONS: The patient is a 60-year-old female who presents with history of bilateral inguinal hernias. Now presents for definitive surgical intervention. Laparoscopic versus open and robotic approaches were discussed. Benefits and risks including bleeding, infection, and chronic groin pain were reviewed. Placement of mesh was also described. Informed consent was obtained. DESCRIPTION: In the preoperative area, the patient was marked with indelible marker along the inguinal hernia. The patient was brought to the operating room and initially laid in supine position. The abdomen had been prepped and draped in standard sterile fashion. Ioban draping was also placed. Prior to incision, a timeout protocol was confirmed with surgical team regarding patient's name including procedures to be performed and location along the right groin. Initial positioning for the robotic assisted ports were selected whereby 20 cm superior to the target anatomy, 0 degree 5 mm laparoscopic trocar entry was performed at the left upper quadrant. The abdomen was insufflated to 15 mmHg which she had tolerated well. Diagnostic laparoscopy demonstrated no injury to bowel, viscera or mesentery. Bilateral inguinal indirect hernias were identified was scarring an tetheringalong the mid body of the right fallopian tube. Next, along the epigastrium, 8 mm robot trocar was placed. An 8-mm robotic trocar was placed under direct visualization at the right upper quadrant. An 8 mm port was placed at the left upper quadrant. All trocars were positioned between 10-cm apart from each other. The TEVIZZ XI robot was primed, draped, prepared for docking along upper abdomen of the patient. The patient was positioned 14 steep Trendelenburg position I then went to the [employer] Xi console. The instruction assistant principal was at bedside for exchange of the robot arms and equipment. The left indirect inguinal hernia sac was evaginated whereby the peritoneum was scored using Endo scissors with cautery. Once completely reduced into the abdominal cavity, the peritoneal sac of the hernia was stripped where a 4 cm incarcerated inguinal lipoma subfascial was removed. The sac was resected and then passed off for further pathological analysis. The size of the hernia defect was 3 cm with intraoperative films obtained. Using a nonabsorbable 2-0 VLOC, the peritoneal defect of the left inguinal hernia sites was closed using a running suture separately. The defect was found to be completely closed with complete reduction of the left indirect inguinal hernia were confirmed. As an onlay, an 11.[address] mesh by [address] was initially cut in half and entered into the abdominal cavity via the 8 mm trocar. The mesh was tacked to the pelvis using nonabsorbable 2-0 VLOC 9-inch length sutures. The right inguinal hernia sac was evaginated whereby the peritoneum was scored using Endo scissors with cautery. Once completely reduced into the abdominal cavity, the peritoneal sac of the hernia was stripped involving a subfascial 2- cm right inguinal lipoma. The lipoma and sac was resected and then passed off for further pathological analysis. The size of the hernia defect was 2 cm with intraoperative films obtained. Using a nonabsorbable 2-0 VLOC, the peritoneal defect of the right inguinal hernia site was closed using a running suture. The defect was found to be completely closed with complete reduction of the right indirect inguinal hernia was confirmed. As an onlay, an 11.[address] mesh by [address] was initially cut in half and entered into the abdominal cavity via the 8 mm trocar. The mesh was tacked to the pelvis using nonabsorbable 2-0 VLOC 9-inch length sutures. The robot was undocked from the patient's bedside. I then rescrubbed into the case. Insufflation was released from the abdominal cavity and all instruments were removed from the abdominal cavity. The rest of incisions were reapproximated using 4-0 Monocryl in a running subcuticular fashion. Incisions were cleansed using dilute hydrogen peroxide. Liquid glue was applied to the skin. At the end of the procedure, the needle, sponge and instrument counts had been verified correct by the biomass plant technician. The patient had tolerated the procedure well and was taken to the postanesthesia care unit in stable condition. Plan - Discharge Summary Discharge Rx Participant: Yes New Discharge Prescriptions: New Simethicone [Gas-X] 125 mg PO AC-TID PRN #20 capsule PRN Reason: Abdominal Distention Acetaminophen Tab [Tylenol Tab] 1,000 mg PO Q6HR PRN #30 tablet PRN Reason: Pain Continue Potassium Chloride [Klor-Con M10] 10 meq PO DAILY Furosemide 40 mg PO DAILY Levocetirizine Dihydrochloride [Xyzal] 5 mg PO DAILY Montelukast Sodium [Singulair] 10 mg PO HS Albuterol Sulfate [Proair Hfa] 2 puff INHALATION RT-QID PRN PRN Reason: Shortness Of Breath Azelastine HCl [Astepro] 1 spray NASAL BID PRN PRN Reason: Allergy Symptoms Mometasone Furoate [Nasonex Nasal [place]] 2 spr EA NOSTRIL DAILY@1300 PRN PRN Reason: Allergic Reaction Albuterol Nebulized (Conc) [Ventolin Nebulized (Conc)] 2.5 mg INHALATION RT- QID PRN PRN Reason: Wheezing Multivitamins, Thera [Multivitamin (formulary)] 1 tab PO DAILY Calcium Citrate 1,200 mg PO DAILY Vitamin A 10,000 unit PO DAILY Dupilumab [Dupixent Syringe] 300 mg SQ Q14D Cholecalciferol [Vitamin D3 (25 Mcg = 1000 Iu)] 250 mcg PO DAILY Ferrous Sulfate [Iron (65 MG Elemental)] 325 mg PO DAILY Levothyroxine Sodium [Synthroid] 137 mcg PO QAM Simethicone 40 mg/0.6 ml Drops [Mylicon Drops] 40 mg PO Q6HR PRN #30 ml PRN Reason: Abdominal Distention Nystatin 100,000 Unit/gm Powd [Mycostatin Powder] 1 applic TOPICAL BID #60 powder Discharge Medication List Furosemide 40 mg PO DAILY 09/29/13 [History] Levocetirizine Dihydrochloride [Xyzal] 5 mg PO DAILY 09/29/13 [History] Potassium Chloride [Klor-Con M10] 10 meq PO DAILY 09/29/13 [History] Montelukast Sodium [Singulair] 10 mg PO HS 09/12/14 [History] Albuterol Sulfate [Proair Hfa] 2 puff INHALATION RT-QID PRN 07/09/17 [History] Azelastine HCl [Astepro] 1 spray NASAL BID PRN 07/09/17 [History] Mometasone Furoate [Nasonex Nasal [place]] 2 spr EA NOSTRIL DAILY@1300 PRN 07/09/17 [History] Albuterol Nebulized (Conc) [Ventolin Nebulized (Conc)] 2.5 mg INHALATION RT-QID PRN 01/15/18 [History] Calcium Citrate 1,200 mg PO DAILY 03/24/19 [History] Multivitamins, Thera [Multivitamin (formulary)] 1 tab PO DAILY 03/24/19 [History] Vitamin A 10,000 unit PO DAILY 03/24/19 [History] Dupilumab [Dupixent Syringe] 300 mg SQ Q14D 04/14/19 [History] Cholecalciferol [Vitamin D3 (25 Mcg = 1000 Iu)] 250 mcg PO DAILY 07/14/19 [History] Ferrous Sulfate [Iron (65 MG Elemental)] 325 mg PO DAILY 07/14/19 [History] Levothyroxine Sodium [Synthroid] 137 mcg PO QAM 01/26/20 [History] Simethicone 40 mg/0.6 ml Drops [Mylicon Drops] 40 mg PO Q6HR PRN #30 ml 05/08/20 [Rx] Nystatin 100,000 Unit/gm Powd [Mycostatin Powder] 1 applic TOPICAL BID #60 powder 05/12/20 [Rx] Acetaminophen Tab [Tylenol Tab] 1,000 mg PO Q6HR PRN #30 tablet 06/12/20 [Rx] Simethicone [Gas-X] 125 mg PO AC-TID PRN #20 capsule 06/12/20 [Rx] [facility]ment(s[facility] [facility] [place] [place] [facility] [place] [facility]20 Patient Instructions/Handouts: *[facility] - Managing Your Pain After Surgery Without Opioids, Laparoscopic Herniorrhaphy (DC), Inguinal Hernia Repair (DC) Activity/Diet/Wound Care/Special Instructions: No lifting over 10 pounds in 4 weeks until July 12. May shower. No bath tub soaks for two weeks until June 26 Diet as tolerated. Use Tylenol scheduled for the next 24-48 hours for best pain relief. Use ice along incisions for today to prevent swelling. Discharge Disposition: HOME SELF-CARE
== END 2020-06-12 16:05 | disposition home or self-care (01) ==
LOC: OR 09:05
PROVIDERS: ATTEND Surgery Plastic and Reconstructive Surgery
DX: K40.00 Bilateral inguinal hernia, with obstruction, without gangrene, not specified as recurrent (principal); D17.5 Benign lipomatous neoplasm of intra-abdominal organs; K44.9 Diaphragmatic hernia without obstruction or gangrene; E03.9 Hypothyroidism, unspecified; M47.819 Spondylosis without myelopathy or radiculopathy, site unspecified; M48.00 Spinal stenosis, site unspecified; I11.9 Hypertensive heart disease without heart failure; I47.1 Supraventricular tachycardia; F41.9 Anxiety disorder, unspecified; J44.9 Chronic obstructive pulmonary disease, unspecified; M06.9 Rheumatoid arthritis, unspecified; E50.9 Vitamin A deficiency, unspecified; E61.1 Iron deficiency; Z79.890 Hormone replacement therapy; Z79.899 Other long term (current) drug therapy; Z88.6 Allergy status to analgesic agent; Z88.1 Allergy status to other antibiotic agents; Z91.010 Allergy to peanuts; Z91.018 Allergy to other foods; Z98.84 Bariatric surgery status
CPT/HCPCS: 49650; S2900; 64999; 88304

== ENCOUNTER → 2020-06-14 | Outpatient (CLI) | payer MEDICARE ==
[2020-06-14 13:17] VITALS: BP 130/84; PULSE 91; RESP 18; TEMP 98.2; BMI 24.9
--- NOTE | 2020-06-14 13:55 | P.PN ---
Subjective Progress Note Date: 06/14/20 DATE OF SERVICE: 06/14/2020 CHIEF COMPLAINT: Panniculitis HISTORY OF PRESENT ILLNESS: Jazmin Castañeda is a 60-year-old female status post gastric bypass 12/21/18. She is 2 years out. She is status post lysis of adhesions 05/08/2020 for left upper quadrant abdominal pain. She is now status post bilateral inguinal hernia repair, 06/12/20. She is POD 2. She comes in with panniculitis. She reports appropriate burning along the left inner thigh. She reports new pain along the inner groin unrelated to her inguinal hernia repair. She reports pain started following her regional block. She has itching from the glue. She reports new right upper quadrant, upper back pain. She reports many allergies. At height of 5 feet 4 inches, her ideal body weight is 144 pounds. Highest 237 pounds, BMI 40.8. Today, she comes in 145 pounds from 148 pounds, 1 month ago. She has lost 3 pounds in 1 month. Lifetime weight loss of 92 pounds. Her body mass index is down from 40.8 to 24.9. Percent excess weight loss lifetime is 99 %. PHYSICAL EXAM: VITAL SIGNS: Height 5 foot 4 inches, weight 145 pounds. BMI 24.9 Vital Signs Temp 98.2 F 06/14/20 13:07 Pulse 91 06/14/20 13:07 Resp 18 06/14/20 13:07 BP 130/84 06/14/20 13:07 Pulse Ox HEENT: No scleral icterus. Extraocular movements grossly intact. Hears conversational speech. No nasal drainage. NECK: Supple without lymphadenopathy. CHEST: Nonlabored respirations with equal bilateral excursions. CARDIOVASCULAR: Regular rate and rhythm. Distal 2+ pulses. ABDOMEN: Incisions clean, dry, and intact. Has pannus over 5 pounds. Has panniculitis, grage 2. MUSCULOSKELETAL: No clubbing, cyanosis. No edema NEURO: No focal or lateralizing signs. Cranial nerves 2 through 12 grossly within normal limits. PSYCH: Appropriate affect. Alert and oriented to person, place and time. SKIN: Good skin turgor. Well perfused. Has panniculitis of the abdomen. ASSESSMENT: 1. Morbid obesity due to excess calories, resolved 2. Body mass index of 40.8 down to 24.9 3. Hypothyroidism 4. Spinal stenosis 5. Osteoarthritis of the lower back. 6. Hypertensive heart disease, resolved. 7. Supraventricular tachycardia, resolved 8. Gastroesophageal reflux disease, now resolved 9. Asthma, improved. 10. Anxiety disorder 11. Chronic obstructive pulmonary disorder 12. Rheumatoid arthritis 13. Recurrent hiatal hernia repair 14. Erosive esophagitis, resolved 15. Status port gastric bypass 16. Vitamin A deficiency 17. Iron deficiency, resolved 18. Panniculitis 19. Left upper quadrant abdominal pain 20. Peritoneal adhesions 21. Bilateral femoral hernias, new 22. Right upper quadrant pain PLAN: 1. She comes in with panniculitis. Recommend evaluation with mobile home technician. 2. She has new right upper quadrant abdominal pain, unrelated to her recent surgery. Recommend assessment with ultrasound gallbladder for gallstones. 3. For inner thigh pain, recommend warm compress and massage. 4. Recommend dexamethasone for multiple skin allergies. Objective - Vital Signs Vital signs: Vital Signs Temp 98.2 F 06/14/20 13:07 Pulse 91 06/14/20 13:07 Resp 18 06/14/20 13:07 BP 130/84 06/14/20 13:07 Pulse Ox Intake & Output 06/13/20 06/14/20 06/14/20 18:59 06:59 18:59 Weight 65.771 kg
== END ==
LOC: BARWHC3 12:37
PROVIDERS: ATTEND Surgery Plastic and Reconstructive Surgery
DX: E66.01 Morbid (severe) obesity due to excess calories (principal); E03.9 Hypothyroidism, unspecified; F41.9 Anxiety disorder, unspecified; M06.9 Rheumatoid arthritis, unspecified; M79.3 Panniculitis, unspecified; K44.9 Diaphragmatic hernia without obstruction or gangrene; K41.20 Bilateral femoral hernia, without obstruction or gangrene, not specified as recurrent; M48.00 Spinal stenosis, site unspecified; M47.9 Spondylosis, unspecified; J44.9 Chronic obstructive pulmonary disease, unspecified; K22.10 Ulcer of esophagus without bleeding; E50.9 Vitamin A deficiency, unspecified; Z98.84 Bariatric surgery status; Z68.24 Body mass index [BMI] 24.0-24.9, adult; K66.0 Peritoneal adhesions (postprocedural) (postinfection); Z88.6 Allergy status to analgesic agent; Z91.048 Other nonmedicinal substance allergy status; Z88.1 Allergy status to other antibiotic agents; Z88.5 Allergy status to narcotic agent; Z91.018 Allergy to other foods; Z91.010 Allergy to peanuts; Z87.891 Personal history of nicotine dependence
CPT/HCPCS: 99211

== ENCOUNTER → 2020-06-15 | Outpatient (CLI) | payer MEDICARE ==
[~2020-06-15] MED LIST changes: -ACETAMINOPHEN TAB 500 MG TAB PO PRN; +DEXAMETHASONE SOD PHOSPHATE 10 MG/ML 1 ML VIAL IM STA; -DEXAMETHASONE SOD PHOSPHATE 4 MG/ML 1 ML VIAL IV ONE; -GABAPENTIN 300 MG CAP PO PRN; -HEPARIN SODIUM,PORCINE/PF 5,000 UNIT/0.5 ML SYRINGE SQ PRN; -HYDROmorphone 0.5 MG/0.5 ML SYRINGE IVP PRN; -LACTATED RINGERS 1,000 ML IV SCH; -LIDOCAINE 1% (10MG/ML) FOR IV START INTRADERMA PRN; -ONDANSETRON 4 MG/2 ML VIAL IVP ONE; -SCOPOLAMINE 1.5MG/72HR PATCH TRANSDERM ONE
[2020-06-15 11:28] VITALS: BP 135/77; PULSE 76; RESP 15; TEMP 98.6
== END ==
LOC: PROCWHC3 11:05
PROVIDERS: ATTEND Surgery Plastic and Reconstructive Surgery
DX: T78.40XA Allergy, unspecified, initial encounter (principal); Z87.891 Personal history of nicotine dependence
CPT/HCPCS: 96372; J1100

== ENCOUNTER 2020-09-21 19:35 | Inpatient (IN) | payer MEDICARE ==
[2020-09-21] MEDS ORDERED: HYDROmorphone 0.5 MG/0.5 ML SYRINGE IVP STA (19:48)
[2020-09-21] MEDS ORDERED: SODIUM CHLORIDE 0.9% 1,000 ML IV STA (19:48)
[2020-09-21] MEDS ORDERED: ONDANSETRON 4 MG/2 ML VIAL IVP STA (19:48)
[2020-09-21] MEDS ORDERED: IOPAMIDOL CONTRAST (ORAL USE) VIAL PO PRN (19:49)
[2020-09-21 20:09] LABS: Basophils % (A) 1 %; Eosinophils # (A) 0.2 k/uL (0-0.7); Eosinophils % (A) 4 %; HCT 43.5 % (34.0-46.0); HGB 14.4 gm/dL (11.4-16.0); Lymphocytes # (A) 2.1 k/uL (1.0-4.8); Lymphocytes % (A) 40 %; MCH 30.3 pg (25.0-35.0); MCHC 33.1 g/dL (31.0-37.0); MCV 91.4 fL (80.0-100.0); Mean Platelet Volume 7.8; Monocytes # (A) 0.2 k/uL (0-1.0); Monocytes % (A) 3 %; Neutrophils # (A) 2.5 k/uL (1.3-7.7); Neutrophils % (A) 50 %; Platelet Count 306 k/uL (150-450); RBC 4.76 m/uL (3.80-5.40); RDW 13.1 % (11.5-15.5); WBC 5.1 k/uL (3.8-10.6)
[2020-09-21 20:19] LABS: ALT 11 U/L (4-34); AST 26 U/L (14-36); African American GFR (CKD) >90 (>60 ml/min/1.73 sqM); Albumin 3.7 g/dL (3.5-5.0); Alkaline Phosphatase 71 U/L (38-126); Anion Gap 6 mmol/L; Blood Urea Nitrogen 9 mg/dL (7-17); Calcium 9.3 mg/dL (8.4-10.2); Carbon Dioxide 27 mmol/L (22-30); Chloride 104 mmol/L (98-107); Glucose 94 mg/dL (74-99); Lipase 94 U/L (23-300); Non-African American GFR(CKD) >90 (>60 ml/min/1.73 sqM); Potassium 3.6 mmol/L (3.5-5.1); Sodium 137 mmol/L (137-145); Total Bilirubin 0.4 mg/dL (0.2-1.3); Total Protein 6.3 g/dL (6.3-8.2)
--- NOTE | 2020-09-21 20:21 | ED ---
Abdominal Pain HPI - General Chief Complaint: Abdominal Pain Stated Complaint: Abd pain Time Seen by Provider: 09/21/20 19:39 Source: patient, family Mode of arrival: ambulatory - History of Present Illness Initial Comments: 60 year-old female patient presents for evaluation of left upper abdominal pain. Patient states the pain has been present for the last few days, but worsened significantly today. Reports worsening pain with eating. Reports nausea no vomiting. Denies any diarrhea. States she did have two bowel movements today after taking a stool softener. Denies any fever or chills. Reports history of many abdominal surgeries including inguinal hernia, hiatal hernia, gastric bypass, and lysis of adhesions. Denies any hematochezia or melena. Patient denies any recent rash, cough, shortness of breath, chest pain, back pain, numbness, tingling, dizziness, weakness, hematuria, dysuria, urinary urgency, urinary frequency, headache, visual changes, or any other complaints. - Related Data Home Medications Medication Instructions Recorded Confirmed Furosemide 40 mg PO DAILY 09/29/13 09/21/20 Levocetirizine Dihydrochloride 5 mg PO DAILY 09/29/13 09/21/20 [Xyzal] Potassium Chloride [Klor-Con M10] 10 meq PO DAILY 09/29/13 09/21/20 Mometasone Furoate [Nasonex Nasal 2 spr EA NOSTRIL DAILY PRN 07/09/17 09/21/20 [place]] Multivitamins, Thera [Multivitamin 1 tab PO DAILY 03/24/19 09/21/20 (formulary)] Vitamin A [Vitamin A (8,000 Units 2,400 mcg PO DAILY 03/24/19 09/21/20 = 2,400 MCG)] Dupilumab [Dupixent Syringe] 300 mg SQ Q14D 04/14/19 09/21/20 Cholecalciferol [Vitamin D3 (25 250 mcg PO DAILY 07/14/19 09/21/20 Mcg = 1000 Iu)] Ferrous Sulfate [Iron (65 MG 325 mg PO DAILY 07/14/19 09/21/20 Elemental)] Calcium Carbonate [Calcium] 1,200 mg PO DAILY 09/21/20 09/21/20 Levothyroxine Sodium [Synthroid] 137 mcg PO DAILY 09/21/20 09/21/20 Previous Rx's Medication Instructions Recorded Simethicone 40 mg/0.6 ml Drops 40 mg PO Q6HR PRN #30 ml 05/08/20 [Mylicon Drops] Simethicone [Gas-X] 125 mg PO AC-TID PRN #20 capsule 06/12/20 Allergies Allergy/AdvReac Type Severity Reaction Status Date / Time peanut Allergy Severe Anaphylaxis Verified 09/21/20 20:30 NSAIDS (Non-Steroidal Allergy Unknown Nausea & Verified 09/21/20 20:30 Anti-Inflamma Vomiting, Lightheaded., Has samters Triad. adhesive Allergy Rash/Hives Verified 09/21/20 20:30 aspirin Allergy Has Verified 09/21/20 20:30 Samters Triad, Nausea & Vomiting cephalexin monohydrate Allergy Rash/Hives Verified 09/21/20 20:30 [From Keflex] ibuprofen Allergy Nausea & Verified 09/21/20 20:30 Vomiting, Lightheaded., Has Samters Triad. propoxyphene napsylate Allergy Nausea & Verified 09/21/20 20:30 [From Darvocet-N 100] Vomiting yeast Allergy Severe congestion Uncoded 09/21/20 20:30 Review of Systems ROS Statement: Those systems with pertinent positive or pertinent negative responses have been documented in the HPI. ROS Other: All systems not noted in ROS Statement are negative. Past Medical History Past Medical History: Asthma, COPD, GERD/Reflux, Osteoarthritis (OA), Rheumatoid Arthritis (RA), Supraventricular Tachycardia (SVT), Thyroid Disorder Additional Past Medical History / Comment(s): current tx bronchitis,and increased reflux,SPINAL STENOSIS, IODINE TX TO environmental allergies,intermittent summer ankle swelling History of Any Multi-Drug Resistant Organisms: None Reported Past Surgical History: Back Surgery, Bariatric Surgery, Hernia Repair, H ysterectomy, Joint Replacement, Orthopedic Surgery Additional Past Surgical History / Comment(s): COLONOSCOPY, SPINAL FUSION, EMIR FUNDOPLICATION, left hip replacment, summer knee replacements, nasal polyps x6, hiatal hernia repair. RnY December 2018 () lysis of adhesions 05-08-20. bilateral ingunieal hernia repair may 2020. Past Anesthesia/Blood Transfusion Reactions: No Reported Reaction Additional Past Anesthesia/Blood Transfusion Reaction / Comment(s): no problems with prior blood transfusion Past Psychological History: Anxiety Smoking Status: Former smoker Past Alcohol Use History: None Reported Past Drug Use History: None Reported - Past Family History Father Family Medical History: Cancer Mother Family Medical History: No Reported History General Exam General appearance: alert, in no apparent distress, other (This is a well- developed, well-nourished adult female patient in no acute distress. Vital signs upon presentation are temperature 98.2F, pulse 77, respirations 18, blood pressure 123/73, pulse ox 97% on room air.) ENT exam: Present: normal exam, normal oropharynx, mucous membranes moist Respiratory exam: Present: normal lung sounds bilaterally. Absent: respiratory distress, wheezes, rales, rhonchi, stridor Cardiovascular Exam: Present: regular rate, normal rhythm, normal heart sounds. Absent: systolic murmur, diastolic murmur, rubs, gallop, clicks GI/Abdominal exam: Present: soft, tenderness (left upper quadrant, midepigastric, right upper quadrant), normal bowel sounds. Absent: distended, guarding, rebound, rigid Neurological exam: Present: alert, oriented X3, CN II-XII intact Psychiatric exam: Present: normal affect, normal mood Skin exam: Present: warm, dry, intact, normal color. Absent: rash Course Vital Signs 09/21/20 09/21/20 09/21/20 19:36 21:17 22:37 Temperature 98.2 F Pulse Rate 77 78 83 Respiratory 18 16 16 Rate Blood Pressure 123/73 116/56 106/52 O2 Sat by Pulse 97 98 96 Oximetry 09/22/20 00:00 Temperature Pulse Rate 80 Respiratory 16 Rate Blood Pressure 91/56 O2 Sat by Pulse 97 Oximetry Medical Decision Making - Medical Decision Making 60-year-old female patient presents to the emergency department today for evaluation of left upper quadrant abdominal pain. Physical examination did reveal right upper quadrant, midepigastric, left upper quadrant tenderness. She is afebrile normal vital signs. Labs reviewed and are unremarkable. CT abdomen and pelvis was obtained, did receive a call from the radiologist to reported possible perforated viscus. I did discuss the case with Dr. Brunson who did review CT scans and came in to evaluate the patient. She will be admitted with antibiotics. She is NPO. Pain medication will be ordered. She is agreeable with this plan. Case discussed with my attending Dr. Patton. - Lab Data Result diagrams: 09/21/20 19:57 09/21/20 19:57 Lab Results 09/21/20 09/21/20 09/21/20 Range/Units 19:57 19:57 19:57 WBC 5.1 (3.8-10.6) k/uL RBC 4.76 (3.80-5.40) m/uL Hgb 14.4 (11.4-16.0) gm/dL Hct 43.5 (34.0-46.0) % MCV 91.4 (80.0-100.0) fL MCH 30.3 (25.0-35.0) pg MCHC 33.1 (31.0-37.0) g/dL RDW 13.1 (11.5-15.5) % Plt Count 306 (150-450) k/uL MPV 7.8 Neutrophils % 50 % Lymphocytes % 40 % Monocytes % 3 % Eosinophils % 4 % Basophils % 1 % Neutrophils # 2.5 (1.3-7.7) k/uL Lymphocytes # 2.1 (1.0-4.8) k/uL Monocytes # 0.2 (0-1.0) k/uL Eosinophils # 0.2 (0-0.7) k/uL Basophils # 0.0 (0-0.2) k/uL Sodium 137 (137-145) mmol/L Potassium 3.6 (3.5-5.1) mmol/L Chloride 104 (98-107) mmol/L Carbon Dioxide 27 (22-30) mmol/L Anion Gap 6 mmol/L BUN 9 (7-17) mg/dL Creatinine 0.66 (0.52-1.04) mg/dL Est GFR (CKD-EPI)AfAm >90 (>60 ml/min/1.73 sqM) Est GFR (CKD-EPI)NonAf >90 (>60 ml/min/1.73 sqM) Glucose 94 (74-99) mg/dL Plasma Lactic Acid Erick (0.7-2.0) mmol/L Calcium 9.3 (8.4-10.2) mg/dL Total Bilirubin 0.4 (0.2-1.3) mg/dL AST 26 (14-36) U/L ALT 11 (4-34) U/L Alkaline Phosphatase 71 (38-126) U/L Total Protein 6.3 (6.3-8.2) g/dL Albumin 3.7 (3.5-5.0) g/dL Lipase 94 (23-300) U/L Urine Color Light Yellow Urine Appearance Clear (Clear) Urine pH 5.5 (5.0-8.0) Ur Specific [place] 1.042 H (1.001-1.035) Urine Protein Negative (Negative) Urine Glucose (UA) Negative (Negative) Urine Ketones 1+ H (Negative) Urine Blood Trace H (Negative) Urine Nitrite Negative (Negative) Urine Bilirubin Negative (Negative) Urine Urobilinogen <2.0 (<2.0) mg/dL Ur Leukocyte Esterase Negative (Negative) Urine RBC 2 (0-5) /hpf Urine WBC <1 (0-5) /hpf Urine Mucus Rare H (None) /hpf 09/21/20 Range/Units 19:57 WBC (3.8-10.6) k/uL RBC (3.80-5.40) m/uL Hgb (11.4-16.0) gm/dL Hct (34.0-46.0) % MCV (80.0-100.0) fL MCH (25.0-35.0) pg MCHC (31.0-37.0) g/dL RDW (11.5-15.5) % Plt Count (150-450) k/uL MPV Neutrophils % % Lymphocytes % % Monocytes % % Eosinophils % % Basophils % % Neutrophils # (1.3-7.7) k/uL Lymphocytes # (1.0-4.8) k/uL Monocytes # (0-1.0) k/uL Eosinophils # (0-0.7) k/uL Basophils # (0-0.2) k/uL Sodium (137-145) mmol/L Potassium (3.5-5.1) mmol/L Chloride (98-107) mmol/L Carbon Dioxide (22-30) mmol/L Anion Gap mmol/L BUN (7-17) mg/dL Creatinine (0.52-1.04) mg/dL Est GFR (CKD-EPI)AfAm (>60 ml/min/1.73 sqM) Est GFR (CKD-EPI)NonAf (>60 ml/min/1.73 sqM) Glucose (74-99) mg/dL Plasma Lactic Acid Erick 0.7 (0.7-2.0) mmol/L Calcium (8.4-10.2) mg/dL Total Bilirubin (0.2-1.3) mg/dL AST (14-36) U/L ALT (4-34) U/L Alkaline Phosphatase (38-126) U/L Total Protein (6.3-8.2) g/dL Albumin (3.5-5.0) g/dL Lipase (23-300) U/L Urine Color Urine Appearance (Clear) Urine pH (5.0-8.0) Ur Specific [place] (1.001-1.035) Urine Protein (Negative) Urine Glucose (UA) (Negative) Urine Ketones (Negative) Urine Blood (Negative) Urine Nitrite (Negative) Urine Bilirubin (Negative) Urine Urobilinogen (<2.0) mg/dL Ur Leukocyte Esterase (Negative) Urine RBC (0-5) /hpf Urine WBC (0-5) /hpf Urine Mucus (None) /hpf - Radiology Data Radiology results: report reviewed, image reviewed CT abdomen and pelvis is obtained. Report was reviewed in its entirety. Impression by Dr. Mccarty shows small amount of free air was small amount of free fluid in the upper abdomen and pelvis and irregularity involving the upper GI at the site of the prior Tressa-en-Y surgery findings concerning for perforated viscus. Trace left pleural effusion with subsegmental atelectasis in and ground glass like opacities in the left lower lobe. No pleural effusion or subsegmental atelectasis on the right. Findings could be secondary to pneumonia reactive secondary to inflammatory changes in the left upper quadrant. Disposition Clinical Impression: Perforated abdominal viscus Disposition: ADMITTED IP TO THIS [facility] Condition: Serious Decision to Admit Reason: Admit from [facility] Decision Date: 09/21/20 Decision Time: 23:30
--- NOTE | 2020-09-21 21:59 | CT ---
EXAMINATION TYPE: CT abdomen pelvis w con DATE OF EXAM: 09/21/2020 HISTORY: Left upper quadrant abdominal pain CT DLP: 771.2mGycm Automated Exposure Control for Dose Reduction was Utilized. CONTRAST: CT scan of the abdomen and pelvis is performed with IV Contrast, patient injected with 95 mL of Isovu e 300. Oral contrast was also given for the study. COMPARISON: CT chest dated 12/14/2012 FINDINGS: LUNG BASES: Trace left pleural effusion with subsegmental atelectasis and groundglass like opacities. There is no pleural effusion or subsegmental atelectasis on the right. INCLUDED CARDIAC STRUCTURES: No cardiac enlargement or pericardial effusion seen. LIVER: No significant abnormality is appreciated. GALLBLADDER : No significant abnormality is appreciated. BILIARY TREE: No abnormal biliary tree dilation. PANCREAS: No significant abnormality is seen. SPLEEN: No significant abnormality is seen. ADRENALS: No significant abnormality is seen. KIDNEYS AND URETERS: No hydronephrosis or evidence of renal mass. 2.2 cm low attenuating lesion witho ut enhancement seen in the left kidney is likely on the basis of cyst. URINARY BLADDER: Suboptimal evaluation of the urinary bladder due to streak artifact from left hip ar throplasty. GASTROINTESTINAL SYSTEM: There is thickening of the distal esophagus at the gastroesophageal junction . The distal esophagus is also mildly distended. Post surgical changes from previous sleeve gastrecto my with gastrojejunal anastomosis is demonstrated. There is mild narrowing at the gastrojejunal anast omosis without complete obstruction as the contrast is seen in the proximal jejunal loop. There is si gnificant thickening at the gastrojejunal anastomosis and surrounding inflammatory changes. There is wall discontinue involving the excluded gastric stomach seen on series 201 image 31. There is also wa ll irregularity involving the posterior medial wall of the proximal stomach (series 201 image 14 and series 203 image 79 ). There is also irregularity involving the proximal jejunum at the site of gastr ojejunal anastomosis. There is a small amount of free fluid in the abdomen; anterior to the left hepatic lobe with small fo ci of free intraperitoneal air. The fluid also seen in the pelvis surrounding small bowel loops. A se cond area of anastomosis is seen between the distal duodenum and jejunum in the left lower abdomen. No diverticulosis or acute diverticulitis. Appendix is not seen. There is no evidence of intestinal obstruction. HERNIAS: Small fat-containing right inguinal hernia noted. Suboptimal evaluation of the uterus and adnexa due to streak artifact from hardware. LYMPH NODES: No enlarged retroperitoneal lymph nodes MAJOR VASCULAR STRUCTURES: Nonaneurysmal aorta. Normal location and caliber of inferior vena cava. OSSEOUS STRUCTURES: Posterior spinal fixation hardware of L4 and L5. Vertebral left hip arthroplasty. Intervertebral disc spacer at L4-5. Evidence of acute osseous abnormality. Mild degenerative changes seen in the included thoracic and upper lumbar spine. SOFT TISSUE: No significant soft tissue abnormality. IMPRESSION: Small amount of free air with small amount of free fluid in the upper abdomen and pelvis and irregula rity involving the upper GI at the site of prior Tressa-en-Y surgery findings concerning for perforated viscus. Trace left pleural effusion with subsegmental atelectasis and groundglass like opacities in the left lower lobe. There is no pleural effusion or subsegmental atelectasis on the right. Findings could be secondary to pneumonia or reactive secondary to inflammatory changes in the left upper quadrant. I communicated the critical report findings over the telephone with the emergency department provider Amanda Baez NP at 9:50 PM on 09/21/2020. Communication was acknowledged.
[2020-09-21] MEDS ORDERED: PIPERACILLIN-TAZOBACTAM 3.375 GM in SODIUM CHLORIDE 0.9% 100 ML IVPB ONE (22:00)
[2020-09-21] MEDS ORDERED: HYDROmorphone 1 MG/ML 1 ML SYRINGE IVP STA (22:12)
[2020-09-21 22:18] LABS: Appearance,Urine Clear (Clear); Bilirubin,Urine Negative (Negative); Blood,Urine Trace (Negative); Color,Urine Light Yellow; Glucose,Urine (UA) Negative (Negative); Ketones,Urine 1+ (Negative); Leukocyte Esterase,Urine Negative (Negative); Mucus,Urine Rare /hpf; Nitrite,Urine Negative (Negative); PH, Urine 5.5 (5.0-8.0); Protein,Urine Negative (Negative); RBC,Urine 2 /hpf (0-5); Specific Gravity,Urine 1.042 (1.001-1.035); Urobilinogen,Urine <2.0 mg/dL (<2.0); WBC,Urine <1 /hpf (0-5)
[2020-09-21] MEDS ORDERED: LACTATED RINGERS 1,000 ML IV ONE (23:42)
--- NOTE | 2020-09-21 23:42 | P.GSHP ---
History of Present Illness H&P Date: 09/21/20 Chief Complaint: Abdominal pain 60-year-old female underwent previous gastric bypass after 2 previous hiatal hernia repairs. Patient underwent in April of this year laparoscopic lysis of adhesions. Over the last week or so she has noticed increased satiety after small amounts of food and some vague abdominal discomfort. Pain became more severe in the last 24 hours. She says she has not eaten much in the last few days. She feels full. Pain is gone now after receiving Dilaudid. Has had some nausea but no vomiting. No fevers. She has had fairly normal bowel habits but does take stool softeners. White blood cell count is normal, lactic acid is normal, no tachycardia, no fevers. CAT scan was performed which shows a small foci of pneumoperitoneum and inflammatory changes around the gastrojejunostomy. No contrast extravasation appreciated. Patient's gastric pouch somewhat distended. - Review of Systems Comment: The patient denies any acute changes in vision or hearing, no dysphagia or odynophagia, no chest pain or shortness of breath, no dysuria or hematuria, no headache, no runny nose, no rectal bleeding or melena, no unexplained weight loss Past Medical History Past Medical History: Asthma, COPD, GERD/Reflux, Osteoarthritis (OA), Rheumatoid Arthritis (RA), Supraventricular Tachycardia (SVT), Thyroid Disorder Additional Past Medical History / Comment(s): current tx bronchitis,and increased reflux,SPINAL STENOSIS, IODINE TX TO environmental allergies,intermittent summer ankle swelling History of Any Multi-Drug Resistant Organisms: None Reported Past Surgical History: Back Surgery, Bariatric Surgery, Hernia Repair, Hysterectomy, Joint Replacement, Orthopedic Surgery Additional Past Surgical History / Comment(s): COLONOSCOPY, SPINAL FUSION, EMIR FUNDOPLICATION, left hip replacment, summer knee replacements, nasal polyps x6, hiatal hernia repair. RnY December 2018 () lysis of adhesions 05-08-20. bilateral ingunieal hernia repair may 2020. Past Anesthesia/Blood Transfusion Reactions: No Reported Reaction Additional Past Anesthesia/Blood Transfusion Reaction / Comment(s): no problems with prior blood transfusion Past Psychological History: Anxiety Smoking Status: Former smoker Past Alcohol Use History: None Reported Past Drug Use History: None Reported - Past Family History Father Family Medical History: Cancer Mother Family Medical History: No Reported History Medications and Allergies Home Medications Medication Instructions Recorded Confirmed Type Furosemide 40 mg PO DAILY 09/29/13 09/21/20 History Levocetirizine Dihydrochloride 5 mg PO DAILY 09/29/13 09/21/20 History [Xyzal] Potassium Chloride [Klor-Con M10] 10 meq PO DAILY 09/29/13 09/21/20 History Mometasone Furoate [Nasonex Nasal 2 spr EA NOSTRIL DAILY PRN 07/09/17 09/21/20 History [place]] Multivitamins, Thera [Multivitamin 1 tab PO DAILY 03/24/19 09/21/20 History (formulary)] Vitamin A [Vitamin A (8,000 Units 2,400 mcg PO DAILY 03/24/19 09/21/20 History = 2,400 MCG)] Dupilumab [Dupixent Syringe] 300 mg SQ Q14D 04/14/19 09/21/20 History Cholecalciferol [Vitamin D3 (25 250 mcg PO DAILY 07/14/19 09/21/20 History Mcg = 1000 Iu)] Ferrous Sulfate [Iron (65 MG 325 mg PO DAILY 07/14/19 09/21/20 History Elemental)] Simethicone 40 mg/0.6 ml Drops 40 mg PO Q6HR PRN #30 ml 05/08/20 09/21/20 Rx [Mylicon Drops] Simethicone [Gas-X] 125 mg PO AC-TID PRN #20 capsule 06/12/20 09/21/20 Rx Calcium Carbonate [Calcium] 1,200 mg PO DAILY 09/21/20 09/21/20 History Levothyroxine Sodium [Synthroid] 137 mcg PO DAILY 09/21/20 09/21/20 History Allergies Allergy/AdvReac Type Severity Reaction Status Date / Time peanut Allergy Severe Anaphylaxis Verified 09/21/20 20:30 NSAIDS (Non-Steroidal Allergy Unknown Nausea & Verified 09/21/20 20:30 Anti-Inflamma Vomiting, Lightheaded., Has samters Triad. adhesive Allergy Rash/Hives Verified 09/21/20 20:30 aspirin Allergy Has Verified 09/21/20 20:30 Samters Triad, Nausea & Vomiting cephalexin monohydrate Allergy Rash/Hives Verified 09/21/20 20:30 [From Keflex] ibuprofen Allergy Nausea & Verified 09/21/20 20:30 Vomiting, Lightheaded., Has Samters Triad. propoxyphene napsylate Allergy Nausea & Verified 09/21/20 20:30 [From [place]-N 100] Vomiting yeast Allergy Severe congestion Uncoded 09/21/20 20:30 Surgical - Exam Vital Signs Temp Pulse Resp BP Pulse Ox 98.2 F 77 18 123/73 97 09/21/20 19:36 09/21/20 19:36 09/21/20 19:36 09/21/20 19:36 09/21/20 19:36 Physical exam: General: Well-developed, well-nourished HEENT: Normocephalic, sclerae nonicteric Abdomen: Minimal epigastric tenderness no rebound or guarding, nondistended Extremities: No edema Neuro: Alert and oriented Results - Labs 09/21/20 19:57 09/21/20 19:57 Abnormal Lab Results - Last 24 Hours (Table) 09/21/20 Range/Units 19:57 Ur Specific [place] 1.042 H (1.001-1.035) Urine Ketones 1+ H (Negative) Urine Blood Trace H (Negative) Urine Mucus Rare H (None) /hpf Diabetes panel 09/21/20 Range/Units 19:57 Sodium 137 (137-145) mmol/L Potassium 3.6 (3.5-5.1) mmol/L Chloride 104 (98-107) mmol/L Carbon Dioxide 27 (22-30) mmol/L BUN 9 (7-17) mg/dL Creatinine 0.66 (0.52-1.04) mg/dL Glucose 94 (74-99) mg/dL Calcium 9.3 (8.4-10.2) mg/dL AST 26 (14-36) U/L ALT 11 (4-34) U/L Alkaline Phosphatase 71 (38-126) U/L Total Protein 6.3 (6.3-8.2) g/dL Albumin 3.7 (3.5-5.0) g/dL Calcium panel 09/21/20 Range/Units 19:57 Calcium 9.3 (8.4-10.2) mg/dL Albumin 3.7 (3.5-5.0) g/dL Pituitary panel 09/21/20 Range/Units 19:57 Sodium 137 (137-145) mmol/L Potassium 3.6 (3.5-5.1) mmol/L Chloride 104 (98-107) mmol/L Carbon Dioxide 27 (22-30) mmol/L BUN 9 (7-17) mg/dL Creatinine 0.66 (0.52-1.04) mg/dL Glucose 94 (74-99) mg/dL Calcium 9.3 (8.4-10.2) mg/dL Adrenal panel 09/21/20 Range/Units 19:57 Sodium 137 (137-145) mmol/L Potassium 3.6 (3.5-5.1) mmol/L Chloride 104 (98-107) mmol/L Carbon Dioxide 27 (22-30) mmol/L BUN 9 (7-17) mg/dL Creatinine 0.66 (0.52-1.04) mg/dL Glucose 94 (74-99) mg/dL Calcium 9.3 (8.4-10.2) mg/dL Total Bilirubin 0.4 (0.2-1.3) mg/dL AST 26 (14-36) U/L ALT 11 (4-34) U/L Alkaline Phosphatase 71 (38-126) U/L Total Protein 6.3 (6.3-8.2) g/dL Albumin 3.7 (3.5-5.0) g/dL Assessment and Plan (1) Perforated abdominal viscus Narrative/Plan: 60-year-old female presents with upper abdominal pain. CAT scan shows evidence of microperforation likely from the gastrojejunostomy. Patient is nontoxic and has abdominal exam findings that are benign at this time. Discussed with Dr. Shields. We'll admit to her service. She will evaluate her tomorrow. Keep patient strictly nothing by mouth. Continue IV Zosyn. Continue antiacids and IV hydration. Current Visit: Yes Status: Acute Code(s): R19.8 - OTH SYMPTOMS AND SIGNS INV OLVING THE DGSTV SYS AND ABDOMEN SNOMED Code(s): 82208005
[2020-09-22] MEDS ORDERED: ONDANSETRON 4 MG in SODIUM CHLORIDE 0.9% 50 ML IVPB PRN ×2
[2020-09-22] MEDS: PANTOPRAZOLE 40 MG/10 ML VIAL IV SCH ×3 (00:58→20:36)
[2020-09-22] MEDS: HEPARIN SODIUM,PORCINE/PF 5,000 UNIT/0.5 ML SYRINGE SQ SCH ×4 (01:00→22:44)
[2020-09-22] MEDS: ACETAMINOPHEN IV (For NPO) 1,000 MG in EMPTY BAG 1 BAG IVPB SCH ×5 (01:01→20:35)
[2020-09-22] MEDS: HYDROmorphone 0.5 MG/0.5 ML SYRINGE IVP PRN ×4 (01:54→20:58)
[2020-09-22 07:03] LABS: Basophils % (A) 1 %; Eosinophils # (A) 0.1 k/uL (0-0.7); Eosinophils % (A) 3 %; HGB 11.9 gm/dL (11.4-16.0); Lymphocytes # (A) 1.8 k/uL (1.0-4.8); Lymphocytes % (A) 39 %; MCH 30.6 pg (25.0-35.0); MCHC 33.1 g/dL (31.0-37.0); MCV 92.6 fL (80.0-100.0); Mean Platelet Volume 7.7; Monocytes # (A) 0.2 k/uL (0-1.0); Monocytes % (A) 5 %; Neutrophils # (A) 2.3 k/uL (1.3-7.7); Neutrophils % (A) 50 %; Platelet Count 252 k/uL (150-450); RBC 3.89 m/uL (3.80-5.40); RDW 13.1 % (11.5-15.5); WBC 4.6 k/uL (3.8-10.6)
[2020-09-22 07:18] LABS: African American GFR (CKD) >90 (>60 ml/min/1.73 sqM); Anion Gap 5 mmol/L; Blood Urea Nitrogen 7 mg/dL (7-17); Calcium 8.5 mg/dL (8.4-10.2); Carbon Dioxide 27 mmol/L (22-30); Chloride 106 mmol/L (98-107); Glucose 94 mg/dL (74-99); Non-African American GFR(CKD) >90 (>60 ml/min/1.73 sqM); Potassium 3.5 mmol/L (3.5-5.1); Sodium 138 mmol/L (137-145)
[2020-09-22] MEDS: PIPERACILLIN-TAZOBACTAM 3.375 GM in SODIUM CHLORIDE 0.9% 100 ML IVPB SCH ×3 (07:19→22:44)
--- NOTE | 2020-09-22 08:09 | P.PN ---
Subjective Progress Note Date: 09/22/[address] evaluated. CT reviewed. Recommend robotic lysis of adhesions, gastrojejunal repair, EGD. Patient agreed. Objective - Vital Signs Vital signs: Vital Signs Temp 98.6 F 09/22/20 07:35 Pulse 32 L 09/22/20 07:35 Resp 18 09/22/20 07:35 BP 105/66 09/22/20 07:35 Pulse Ox 99 09/22/20 07:35 Intake & Output 09/21/20 09/22/20 09/22/20 18:59 06:59 18:59 Weight 65.317 kg - Labs CBC & Chem 7: 09/22/20 06:38 09/22/20 06:38 Labs: Abnormal Lab Results - Last 24 Hours (Table) 09/21/20 Range/Units 19:57 Ur Specific [place] 1.042 H (1.001-1.035) Urine Ketones 1+ H (Negative) Urine Blood Trace H (Negative) Urine Mucus Rare H (None) /hpf
[2020-09-22] MEDS ORDERED: IV FLUID CONTINUATION 1,000 ML IV ONE (10:03)
[2020-09-22] MEDS ORDERED: FLUTICASONE 50MCG/SPRAY NASAL 16GM EA NOSTRIL PRN (10:22)
[2020-09-22] MEDS ORDERED: SIMETHICONE 40 MG/0.6 ML DROPS 2,000 MG/30 ML BOTTLE PO PRN (10:22)
[2020-09-22] MEDS ORDERED: SIMETHICONE 80 MG CHEWABLE PO PRN (10:22)
[2020-09-22] MEDS ORDERED: ONDANSETRON 4 MG/2 ML VIAL ONE (10:50)
[2020-09-22] MEDS ORDERED: DEXAMETHASONE SOD PHOSPHATE 4 MG/ML 1 ML VIAL IVP ONE (10:56)
[2020-09-22] MEDS ORDERED: ONDANSETRON 4 MG/2 ML VIAL IVP ONE (10:56)
[2020-09-22] MEDS ORDERED: fentaNYL (PF) 50 MCG/ML 2 ML AMP IVP ONE (10:56)
[2020-09-22] MEDS ORDERED: HEPARIN SODIUM,PORCINE 5,000 UNIT/ML 1 ML VIAL SQ ONE (11:11)
--- NOTE | 2020-09-22 11:16 | P.HPADDEND ---
H&P Addendum H&P Addendum Date: 09/22/20 Patient seen and evaluated. Family at bedside. Patient primarily reports generalized lower abdominal pain. Computed tomography scan is disconcordant with patient's symptoms. We'll proceed with upper endoscopy to evaluate the gastric pouch. Additionally lysis of adhesions described with her history of multiple abdominal surgeries. Patient is also seeking to be able to go home. Repair of gastrojejunal ulcer described with placement of a drain and inpatient hospitalization. Benefits and risks described. Patient willing to proceed.
[2020-09-22] MEDS ORDERED: ePHEDrine SULFATE/0.9% NACL/PF 50 MG/5 ML SYRINGE IV ONE (11:30)
[2020-09-22] MEDS ORDERED: PROPOFOL 10 MG/ML 20 ML VIAL IV ONE (11:30)
[2020-09-22] MEDS ORDERED: fentaNYL (PF) 50 MCG/ML 2 ML AMP ONE (11:30)
[2020-09-22] MEDS ORDERED: PHENYLEPHRINE-0.9% NACL SYG 1,000 MCG/10 ML SYRINGE ONE (11:30)
[2020-09-22] MEDS ORDERED: LIDOCAINE 1% INJ 10MG/ML (20 ML MDV) ONE (11:30)
[2020-09-22] MEDS ORDERED: SODIUM CHLORIDE 0.9% (PF) 10 ML VIAL ONE (11:30)
[2020-09-22] MEDS ORDERED: MIDAZOLAM 2 MG/2 ML VIAL ONE (11:30)
[2020-09-22] MEDS ORDERED: HYDROmorphone (PF) 1 MG/ML ONE (11:30)
[2020-09-22] MEDS ORDERED: SUCCINYLCHOLINE CHLORIDE 100 MG/5 ML SYR IV ONE (11:30)
[2020-09-22] MEDS ORDERED: GLYCOPYRROLATE 0.2 MG/ML 2 ML VIAL ONE (11:30)
[2020-09-22] MEDS ORDERED: NEOSTIGMINE 1 MG/ML 10 ML VIAL ONE (11:30)
[2020-09-22] MEDS ORDERED: ROCURONIUM 10 MG/ML (5 ML VIAL) IV ONE (11:30)
[2020-09-22] MEDS ORDERED: SODIUM CHLORIDE 0.9% 50 ML with ceFAZolin 2,000 MG IV ONE ×2 (12:07)
[2020-09-22] MEDS ORDERED: BUPIVACAINE (PF) 0.5% 30 ML VIAL SQ ONE (12:19)
[2020-09-22] MEDS ORDERED: LACTATED RINGERS 1,000 ML IV ONE (13:51)
[2020-09-22] MEDS ORDERED: NALOXONE 0.4 MG/ML 1 ML VIAL IV PRN (14:33)
--- NOTE | 2020-09-22 14:41 | P.OP ---
Date of Procedure: 09/22/20 Description of Procedure: SURGEON: MARILYN SANCHES MD PREOPERATIVE DIAGNOSES: 1. Epigastric abdominal pain 2. Pneumoperitoneum 3. Abnormal computed tomography scan for perforated gastrojejunal anastomosis 4. History of gastric bypass POSTOPERATIVE DIAGNOSES: 1. Epigastric abdominal pain 2. Pneumoperitoneum 3. Perforated gastrojejunal anastomosis 4. History of gastric bypass 5. Peritoneal adhesions left upper quadrant, bilateral lower pelvis 6. Abdominal ascites OPERATION: 1. Robotic-assisted da Yissel Xi laparoscopic exploration and repair of gastrojejunal perforation with lysis of adhesions, over 1 hour 2. Abdominal washout with peritoneal lavage 2 L normal saline 3. Placement of #19 round Conor-Cruz drain gastrojejunal anastomosis 4. Intraoperative esophagogastrojejunoscopy ESTIMATED BLOOD LOSS: 5 mL. SPECIMENS REMOVED: None. COMPLICATIONS: None. OPERATIVE FINDINGS: 1. Upper endoscopy confirms gastrojejunal perforation with perforation 2. Peritoneal adhesions left upper quadrant including periumbilical with lysis of adhesions of the left upper quadrant 3. Negative leak test upon upper endoscopy 4. Abdominal washout for abdominal ascites 2 L normal saline with peritoneal lavage 5. Placement of BARB drain posterior left lateral to gastrojejunal anastomosis 6. Minimal to no contamination identified at or near gastrojejunal anastomosis INDICATIONS: The patient is a 60-year-old female who presented with pneumoperitoneum. Surgical intervention with diagnostic laparoscopy, lysis of adhesions were described, closure of gastrojejunal perforation was described including placement of drain. Robotic assisted laparoscopic approach was de scribed. Benefits and risks of the procedure including but not limited to bleeding, infection, injury to the small bowel was described. Informed consent was obtained. DESCRIPTION OF PROCEDURE: Patient was brought to the operating room, placed in supine position. After general induction, the abdomen had been prepped and draped in standard sterile fashion. The robotic da Yissel XI system was primed. After a timeout protocol was performed, the patient had been prepped and draped in standard sterile fashion. The robot was docked along the left lateral abdomen. Please note prior to dockin g of the robot; however, a 5 mm 0 degrees laparoscopic trocar entry was performed along the right upper quadrant. The abdomen was insufflated to 15 mmHg pressure which she tolerated well. Diagnostic laparoscopy was performed. Next, three 8 mm robotic ports were placed along the upper abdomen. The 5-mm trocar was exchanged for a 12 mm trocar at the left upper quadrant. Please note that the ports were placed at least 10 to 15 cm away from the target anatomy. A medium-sized Mark liver retractor was used to elevate the left lobe of the liver and held in place using iron international marketing coordinator. Instruments including grasp suction professor of spanish and needle sanitation truck driver were interchanged by the marketing support assistant. I had sat at the console. Abdominal ascites was identified along the upper and lower abdomen however clear. Little to no contamination was identified at the upper abdomen along the gastrojejunal anastomosis. The upper abdomen was irrigated with normal saline. Peritoneal adhesions including omentum was found along the left upper quadrant including along the periumbilical area. Next, the gastrojejunal anastomosis was explored where minimal bleeding was verified along the 3 o'clock position oth erwise left lateral portion of the anastomosis. I went to the head of the bed to perform an upper endoscopy and confirmed any leaks. The gastroscope was entered into the mouth and posterior oropharynx to the anastomosis. With air insufflation, o evidence of air leak was found. The anastomosis had been submerged under normal saline also confirming no air leak or further tear. The gastrojejunal anastomosis perforation had sealed. Next, the omental adhesions along the abdominal wall was lysed and omentum was placed to buttress the perforated site. Around the upper 19 Conor-Cruz drain was entered via the left lateral trocar and positioned along the left lateral aspect to the anastomosis. The drain was secured to skin using 2-0 nylon. The patient was flattened. The pelvis was irrigated and washed using normal saline. The irrigant was aspirated. All pneumoperitoneum and instruments were evacuated from the abdominal cavity using a closed suction system. The incisions were reapproximated using 4-0 Monocryl in an interrupted subcuticular fashion. Please note along the trocar sites, local anesthetic was placed as a field block prior to insertion of all instruments. Exofin was applied to the skin. At the left upper quadrant, Optifoam dressing was placed along the BARB site. At the end of the procedure needle, sponge, and instrument count had been verified correct by the director medical surgical. The patient was transferred to postanesthesia care unit in stable condition.
[2020-09-22] MEDS ORDERED: FLUCONAZOLE IN NACL,ISO-OSM 100 MG in SALINE 1 100ML.BAG IVPB SCH (14:45)
[2020-09-22] MEDS: FLUCONAZOLE IN NACL,ISO-OSM 100 MG in SALINE 1 50ML.BAG IVPB SCH (15:32)
[2020-09-22] MEDS ORDERED: diphenhydrAMINE 50 MG/ML 1 ML VIAL IVP STA (16:59)
[2020-09-22] MEDS ORDERED: DEXAMETHASONE SOD PHOSPHATE 10 MG/ML 1 ML VIAL IV STA (17:00)
[2020-09-22] MEDS: ONDANSETRON 4 MG/2 ML VIAL IVP SCH ×2 (17:10→22:45)
--- NOTE | 2020-09-22 18:40 | P.CONS ---
History of Present Illness - Reason for Consult Consult date: 09/22/20 Medical management - Chief Complaint Abdominal pain - History of Present Illness 60 year-old female patient presents for evaluation of left upper abdominal pain. Patient states the pain has been present for the last few days, but worsened significantly today. Reports worsening pain with eating. Reports nausea no vomiting. Denies any diarrhea. States she did have two bowel movements today after taking a stool softener. Denies any fever or chills. Reports history of many abdominal surgeries including inguinal hernia, hiatal hernia, gastric bypass, and lysis of adhesions. Denies any hematochezia or melena. Patient denies any recent rash, cough, shortness of breath, chest pain, back pain, numbness, tingling, dizziness, weakness, hematuria, dysuria, urinary urgency, urinary frequency, headache, visual changes, or any other complaints. CT abdomen and pelvis was obtained, and results were called in by the radiologist to reported possible perforated viscus. Case with Dr. Brunson who did review CT scans and came in to evaluate the patient. She will be admitted with antibiotics. She is NPO. Review of Systems REVIEW OF SYSTEMS: CONSTITUTIONAL: No fever, no malaise, no fatigue. HEENT: No recent visual problems or hearing problems. Denied any sore throat. CARDIOVASCULAR: No chest pain, orthopnea, PND, no palpitations, no syncope. PULMONARY: No shortness of breath, no cough, no hemoptysis. GASTROINTESTINAL: No diarrhea, no nausea, no vomiting, no abdominal pain. NEUROLOGICAL: No headaches, no weakness, no numbness. HEMATOLOGICAL: Denies any bleeding or petechiae. GENITOURINARY: Denies any burning micturition, frequency, or urgency. MUSCULOSKELETAL/RHEUMATOLOGICAL: Denies any joint pain, swelling, or any muscle pain. ENDOCRINE: Denies any polyuria or polydipsia. The rest of the 14-point review of systems is negative. Past Medical History Past Medical History: Asthma, COPD, GERD/Reflux, Osteoarthritis (OA), Rheumatoid Arthritis (RA), Supraventricular Tachycardia (SVT), Thyroid Disorder Additional Past Medical History / Comment(s): current tx bronchitis,and increased reflux,SPINAL STENOSIS, IODINE TX TO environmental allergies,interm ittent summer ankle swelling History of Any Multi-Drug Resistant Organisms: None Reported Past Surgical History: Back Surgery, Bariatric Surgery, Hernia Repair, Hysterectomy, Joint Replacement, Orthopedic Surgery Additional Past Surgical History / Comment(s): COLONOSCOPY, SPINAL FUSION, EMIR FUNDOPLICATION, left hip replacment, summer knee replacements, nasal polyps x6, hiatal hernia repair. RnY December 2018 () lysis of adhesions 05-08-20. bilateral ingunieal hernia repair may 2020. Past Anesthesia/Blood Transfusion Reactions: No Reported Reaction Additional Past Anesthesia/Blood Transfusion Reaction / Comm: no problems with prior blood transfusion Past Psychological History: Anxiety Smoking Status: Former smoker Past Alcohol Use History: None Reported Additional Past Alcohol Use History / Comment(s): SMOKED since 1997, / PPD,. No ETOH. No drugs abuse Past Drug Use History: None Reported - Past Family History Father Family Medical History: Cancer Mother Family Medical History: No Reported History Medications and Allergies Home Medications Medication Instructions Recorded Confirmed Type Furosemide 40 mg PO DAILY 09/29/13 09/21/20 History Levocetirizine Dihydrochloride 5 mg PO DAILY 09/29/13 09/21/20 History [Xyzal] Potassium Chloride [Klor-Con M10] 10 meq PO DAILY 09/29/13 09/21/20 History Mometasone Furoate [Nasonex Nasal 2 spr EA NOSTRIL DAILY PRN 07/09/17 09/21/20 History [place]] Multivitamins, Thera [Multivitamin 1 tab PO DAILY 03/24/19 09/21/20 History (formulary)] Vitamin A [Vitamin A (8,000 Units 2,400 mcg PO DAILY 03/24/19 09/21/20 History = 2,400 MCG)] Dupilumab [Dupixent Syringe] 300 mg SQ Q14D 04/14/19 09/21/20 History Cholecalciferol [Vitamin D3 (25 250 mcg PO DAILY 07/14/19 09/21/20 History Mcg = 1000 Iu)] Ferrous Sulfate [Iron (65 MG 325 mg PO DAILY 07/14/19 09/21/20 History Elemental)] Simethicone 40 mg/0.6 ml Drops 40 mg PO Q6HR PRN #30 ml 05/08/20 09/21/20 Rx [Mylicon Drops] Simethicone [Gas-X] 125 mg PO AC-TID PRN #20 capsule 06/12/20 09/21/20 Rx Calcium Carbonate [Calcium] 1,200 mg PO DAILY 09/21/20 09/21/20 History Levothyroxine Sodium [Synthroid] 137 mcg PO DAILY 09/21/20 09/21/20 History Allergies Allergy/AdvReac Type Severity Reaction Status Date / Time peanut Allergy Severe Anaphylaxis Verified 09/22/20 09:52 NSAIDS (Non-Steroidal Allergy Unknown Nausea & Verified 09/22/20 09:52 Anti-Inflamma Vomiting, Lightheaded., Has samters Triad. adhesive Allergy Rash/Hives Verified 09/22/20 09:52 aspirin Allergy Has Verified 09/22/20 09:52 Samters Triad, Nausea & Vomiting cephalexin monohydrate Allergy Rash/Hives Verified 09/22/20 09:52 [From Keflex] ibuprofen Allergy Nausea & Verified 09/22/20 09:52 Vomiting, Lightheaded., Has Samters Triad. propoxyphene napsylate Allergy Nausea & Verified 09/22/20 09:52 [From Darvocet-N 100] Vomiting yeast Allergy Severe congestion Uncoded 09/22/20 09:52 Physical Exam Vitals: Vital Signs Temp Pulse Pulse Resp BP BP Pulse Ox 09/22/20 15:01 97.6 F 56 L 18 90/52 97 09/22/20 14:45 54 L 16 102/51 94 L 09/22/20 14:30 56 L 14 102/51 94 L 09/22/20 14:16 63 16 101/50 99 09/22/20 14:00 97 F L 72 16 112/55 99 09/22/20 10:59 57 L 17 93/50 95 09/22/20 10:30 57 L 17 96/55 96 09/22/20 09:50 60 17 102/54 97 09/22/20 07:35 98.6 F 32 L 18 105/66 99 09/22/20 06:00 98.9 F 61 18 88/51 97 09/22/20 05:00 71 16 97/56 98 09/22/20 00:00 80 16 91/56 97 09/21/20 22:37 83 16 106/52 96 09/21/20 21:17 78 16 116/56 98 09/21/20 19:36 98.2 F 77 18 123/73 97 Intake and Output 09/22/20 09/22/2009/22/21 06:59 14:59 22:59 Intake Total 1250 Output Total 45 Balance 1205 Intake: IV 1250 Output: Estimated Blood Loss 45 Other: Weight 65.317 kg - Constitutional General appearance: Present: average body habitus, cooperative, no acute distr ess - EENT Eyes: Present: anicteric sclerae, EOMI, PERRLA, normal appearance ENT: Present: hearing grossly normal, normal oropharynx Ears: bilateral: normal - Neck Neck: Present: normal ROM. Absent: lymphadenopathy, rigidity, thyromegaly Carotids: negative: bruit present Thyroid: bilateral: normal size, negative: enlarged, nodule - Respiratory Respiratory: bilateral: CTA, negative: rales, rhonchi, wheezing - Cardiovascular Rhythm: regular Heart sounds: normal: S1, S2 Abnormal Heart Sounds: Absent: systolic murmur, diastolic murmur - Gastrointestinal General gastrointestinal: Present: normal bowel sounds, soft. Absent: distended, organomegaly, tenderness - Genitourinary Genitourinary Comment(s): deferred - Integumentary Integumentary: Present: normal turgor. Absent: jaundiced, rash, ulcer - Neurologic Neurologic: Present: CNII-XII intact. Absent: focal deficits - Musculoskeletal Musculoskeletal: Present: gait normal, strength equal bilaterally - Psychiatric Psychiatric: Present: A&O x's 3, appropriate affect, intact judgment & insight Results CBC & Chem 7: 09/22/20 06:38 09/22/20 06:38 Labs: Abnormal Lab Results - Last 24 Hours (Table) 09/21/20 Range/Units 19:57 Ur Specific Shanks 1.042 H (1.001-1.035) Urine Ketones 1+ H (Negative) Urine Blood Trace H (Negative) Urine Mucus Rare H (None) /hpf Assessment and Plan Assessment: 1. Abdominal pain; perforated viscus - CT of the abdomen is reviewed by surgery and patient is to be kept nothing by mouth with IV antibiotics; patient scheduled for OR - Patient is started on IV Zosyn and IV fluid hydration 2. COPD/asthma; not in exacerbation; continue with home dose of Xyzal 5 mg daily; albuterol inhaler when necessary 3. Hypothyroidism; levothyroxin 137 MCG daily 4. Rheumatoid arthritis; Dupixent as out patient DVT prophylaxis; SCDs CODE STATUS; full code
[2020-09-23] MEDS: ACETAMINOPHEN IV (For NPO) 1,000 MG in EMPTY BAG 1 BAG IVPB SCH (03:35)
[2020-09-23] MEDS: HYDROmorphone 0.5 MG/0.5 ML SYRINGE IVP PRN ×6 (03:54→22:26)
[2020-09-23] MEDS: ONDANSETRON 4 MG/2 ML VIAL IVP SCH ×4 (05:36→22:26)
[2020-09-23] MEDS: PIPERACILLIN-TAZOBACTAM 3.375 GM in SODIUM CHLORIDE 0.9% 100 ML IVPB SCH ×3 (05:37→22:25)
[2020-09-23] MEDS ORDERED: LEVOTHYROXINE 137 MCG TAB PO SCH (06:30)
[2020-09-23] MEDS: HEPARIN SODIUM,PORCINE/PF 5,000 UNIT/0.5 ML SYRINGE SQ SCH ×3 (08:28→22:25)
[2020-09-23] MEDS: PANTOPRAZOLE 40 MG/10 ML VIAL IV SCH ×2 (08:28→22:24)
[2020-09-23] MEDS: FLUCONAZOLE IN NACL,ISO-OSM 100 MG in SALINE 1 50ML.BAG IVPB SCH (08:28)
[2020-09-23] MEDS ORDERED: MULTIVITAMINS, THERA 1 EACH TAB PO SCH (09:00)
[2020-09-23] MEDS ORDERED: CALCIUM CARBONATE 500 MG CHEWABLE PO SCH (09:00)
[2020-09-23] MEDS ORDERED: FERROUS SULFATE 325 MG TAB PO SCH (09:00)
[2020-09-23] MEDS ORDERED: CHOLECALCIFEROL 25 MCG (1000 IU) TABLET PO SCH (09:00)
--- NOTE | 2020-09-23 10:09 | FL ---
EXAMINATION TYPE: FL UGI DATE OF EXAM: 09/23/2020 COMPARISON: 04/22/2018 HISTORY: Gastrojejunal cervical perforation status post repair TECHNIQUE: Single-contrast water-soluble technique is utilized to evaluate the distal esophagus and u pper GI. FINDINGS: Contrast passes through the esophagus without hesitancy. Gastroesophageal junction opens to normal caliber. No intraluminal or extramural defects within the stomach is evident. There is prompt contrast spill i nto the small bowel. No extravasation of contrast is evident. IMPRESSION: 1. No extravasation of contrast post surgery
[2020-09-23 11:50] LABS: Basophils # (A) 0.01 X 10*3/uL (0.00-0.10); Basophils % (A) 0.2 %; Eosinophils # (A) 0 X 10*3/uL (0.04-0.35); Eosinophils % (A) 0 %; HCT 38.9 % (37.2-46.3); HGB 11.7 g/dL (12.0-15.0); Lymphocytes # (A) 1.16 X 10*3/uL (0.90-5.00); Lymphocytes % (A) 26.7 %; MCH 28.7 pg (27.0-32.0); MCHC 30.1 g/dL (32.0-37.0); MCV 95.3 fL (80.0-97.0); Mean Platelet Volume 11.3 fL (9.5-12.2); Monocytes # (A) 0.27 X 10*3/uL (0.20-1.00); Monocytes % (A) 6.2 %; Neutrophils % (A) 66.7 %; Platelet Count 267 X 10*3/uL (140-440); RBC 4.08 X 10*6/uL (4.10-5.20); RDW 13.5 % (11.5-14.5); WBC 4.35 X 10*3/uL (4.50-10.00)
[2020-09-23 11:59] LABS: African American GFR (CKD) 115.6 (60.0-200.0); Albumin 3.5 g/dL (3.80-4.90); Albumin/Globulin Ratio 1.59 (1.60-3.17); Anion Gap 7.7 mmol/L (4.00-12.00); BUN/Creat Ratio 18.33 Ratio (12.00-20.00); Calcium 8.8 mg/dL (8.7-10.3); Carbon Dioxide 26.3 mmol/L (21.6-31.8); Globulin 2.2 g/dL (1.6-3.3); Non-African American GFR(CKD) 99.8 (60.0-200.0); Potassium 4.2 mmol/L (3.5-5.5); Total Bilirubin 0.4 mg/dL (0.3-1.2); Total Protein 5.7 g/dL (6.2-8.2)
--- NOTE | 2020-09-23 16:12 | P.PN ---
Subjective Progress Note Date: 09/23/20 CHIEF COMPLAINT: Perforated gastrojejunal ulcer HISTORY OF PRESENT ILLNESS: The patient is a 60-year-old female status post exploration and repair of gastrojejunal ulcer, 09/22/2020. She postoperative day 1. Pain is controlled. She confirms that she has started smoking again. She also reports Wellbutrin helped in the past. She is tolerating melted ice water. ROS: No reports of nausea and vomiting. No bowel movements. No fevers or chills. No new chest pain. No productive sputum PHYSICAL EXAM: VITAL SIGNS: Reviewed CONSTITUTIONAL: Well developed and in no acute distress. EYES: Conjuctivae without sclera icterus. Extraocular movements grossly intact. HEAD, EARS, NOSE, THROAT: Moist buccal mucosa. Head is atraumatic, normocephalic. Hears conversational speech. No nasal drainage. NECK: Supple. No visible thyroidomegaly. RESPIRATORY: Non-labored respirations and equal bilateral excursions. CARDIOVASCULAR: Palpable 2+ radial pulses. ABDOMEN: Incisions clean dry and intact. Soft. No peritonitis. Minimal tenderness left upper quadrant. Conor-Cruz drain serous. MUSCULOSKELETAL: No gross deformity of the lower extremities noted. No clubbing. No cyanosis. SKIN: Good skin turgor. Well perfused. NEUROLOGIC: Cranial nerves II through XII grossly intact. No focal or lateralizing signs. PSYCH: Appropriate affect. Alert and oriented to person, place and time. CLINICAL LABS: White blood cell count was not elevated at 4.35. Hemoglobin stable 11.7 from 11.9 yesterday, presurgical. STUDIES: Upper GI barium swallow independent review demonstrating no evidence of extravasation. This is my independent interpretation. ASSESSMENT: 1. Acute perforated gastrojejunal ulcer PLAN: 1. Causes for acute perforated gastrojejunal ulcer includes increased acid pr oduction and nicotine exposure. Urine nicotine sent. 2. Antibiotic management including Zosyn and antifungal for yeast initiated 3. May resume home medications. 4. New prescriptions for tobacco cessation requested with medicine consultation. 5. Carafate and Omeprazole 6. Start diet prior to discharge. Objective - Vital Signs Vital signs: Vital Signs Temp 97.4 F L 09/23/20 08:28 Pulse 54 L 09/23/20 08:28 Resp 16 09/23/20 08:28 BP 91/54 09/23/20 08:28 Pulse Ox 96 09/23/20 08:28 Intake & Output 09/22/20 09/23/20 09/23/20 18:59 06:59 18:59 Intake Total 1250 Output Total 445 200 Balance 805 -200 Weight 65.317 kg Intake: IV 1250 Output: Urine 400 200 Estimated Blood Loss 45 Other: # Voids 2 - Labs CBC & Chem 7: 09/23/20 07:22 09/23/20 07:22 Labs: Abnormal Lab Results - Last 24 Hours (Table) 09/23/20 09/23/20 Range/Units 07:22 07:22 WBC 4.35 L (4.50-10.00) X 10*3/uL RBC 4.08 L (4.10-5.20) X 10*6/uL Hgb 11.7 L (12.0-15.0) g/dL MCHC 30.1 L (32.0-37.0) g/dL Eosinophils # 0 L (0.04-0.35) X 10*3/uL Glucose 128 H (70-110) mg/dL Total Protein 5.7 L (6.2-8.2) g/dL Albumin 3.50 L (3.80-4.90) g/dL Albumin/Globulin Ratio 1.59 L (1.60-3.17) g/dL Microbiology - Last 24 Hours (Table) 09/21/20 22:22 Blood Culture - Preliminary Blood No Growth after 24 hours 09/21/20 22:31 Blood Culture - Preliminary Blood No Growth after 24 hours
[2020-09-23] MEDS: SUCRALFATE 1 GM TAB PO SCH (17:24)
[2020-09-24] MEDS: PIPERACILLIN-TAZOBACTAM 3.375 GM in SODIUM CHLORIDE 0.9% 100 ML IVPB SCH ×2 (05:37→13:33)
[2020-09-24] MEDS: ONDANSETRON 4 MG/2 ML VIAL IVP SCH ×2 (05:37→12:37)
[2020-09-24] MEDS: HYDROmorphone 0.5 MG/0.5 ML SYRINGE IVP PRN ×4 (05:37→15:35)
[2020-09-24] MEDS: PANTOPRAZOLE 40 MG/10 ML VIAL IV SCH (08:28)
[2020-09-24] MEDS: HEPARIN SODIUM,PORCINE/PF 5,000 UNIT/0.5 ML SYRINGE SQ SCH ×2 (08:28→15:27)
[2020-09-24] MEDS: FLUCONAZOLE IN NACL,ISO-OSM 100 MG in SALINE 1 50ML.BAG IVPB SCH (08:28)
[2020-09-24] MEDS: SUCRALFATE 1 GM TAB PO SCH ×3 (08:28→15:27)
[2020-09-24] MEDS ORDERED: FUROSEMIDE 40 MG TAB PO SCH (09:00)
[2020-09-24] MEDS ORDERED: POTASSIUM CHLORIDE ER 10 MEQ TAB.ER.PRT PO SCH (09:00)
[2020-09-24] MEDS ORDERED: LORATADINE 10 MG TAB PO SCH (09:00)
--- NOTE | 2020-09-24 11:34 | P.PN ---
Subjective Progress Note Date: 09/23/20 Principal diagnosis: Pneumoperitoneum/perforated gastrojejunal anastomosis Status post laparoscopic exploration and repair of gastrojejunal perforation with lysis of adhesions 60 year-old female patient presents for evaluation of left upper abdominal pain. Patient states the pain has been present for the last few days, but worsened significantly today. Reports worsening pain with eating. Reports nausea no vomiting. Denies any diarrhea. States she did have two bowel movements today after taking a stool softener. Denies any fever or chills. Reports history of many abdominal surgeries including inguinal hernia, hiatal hernia, gastric bypass, and lysis of adhesions. Denies any hematochezia or melena. Patient denies any recent rash, cough, shortness of breath, chest pain, back pain, numbness, tingling, dizziness, weakness, hematuria, dysuria, urinary urgency, urinary frequency, headache, visual changes, or any other complaints. CT abdomen and pelvis was obtained, and results were called in by the radiologist to reported possible perforated viscus. Case with Dr. Brunson who did review CT scans and came in to evaluate the patient. She will be admitted with antibiotics. She is NPO. 09/23/2020 Patient is seen and evaluated in room at bedside; patient is status post laparoscopic exploration and repair of gastrojejunal perforation with lysis of adhesions Antibiotic management per general surgery including Zosyn and antifungal for yeast initiated; patient is cleared to resume home medications; continue with Ca rafate and omeprazole Patient will be started on diet once cleared by surgery Objective - Vital Signs Vital signs: Vital Signs Temp 97.4 F L 09/23/20 08:28 Pulse 54 L 09/23/20 08:28 Resp 16 09/23/20 08:28 BP 91/54 09/23/20 08:28 Pulse Ox 96 09/23/20 08:28 Intake & Output 09/22/20 09/23/20 09/23/20 18:59 06:59 18:59 Intake Total 1250 Output Total 445 200 Balance 805 -200 Weight 65.317 kg Intake: IV 1250 Output: Urine 400 200 Estimated Blood Loss 45 Other: # Voids 2 - Exam CONSTITUTIONAL: Well developed and in no acute distress. EYES: Conjuctivae without sclera icterus. Extraocular movements grossly intact. HEAD, EARS, NOSE, THROAT: Moist buccal mucosa. Head is atraumatic, normocephalic. Hears conversational speech. No nasal drainage. NECK: Supple. No visible thyroidomegaly. RESPIRATORY: Non-labored respirations and equal bilateral excursions. CARDIOVASCULAR: Palpable 2+ radial pulses. ABDOMEN: Incisions clean dry and intact. Soft. No peritonitis. Minimal tenderness left upper quadrant. Conor-Cruz drain serous. MUSCULOSKELETAL: No gross deformity of the lower extremities noted. No cl ubbing. No cyanosis. SKIN: Good skin turgor. Well perfused. NEUROLOGIC: Cranial nerves II through XII grossly intact. No focal or lateralizing signs. PSYCH: Appropriate affect. Alert and oriented to person, place and time. - Labs CBC & Chem 7: 09/23/20 07:22 09/23/20 07:22 Labs: Abnormal Lab Results - Last 24 Hours (Table) 09/23/20 09/23/20 Range/Units 07:22 07:22 WBC 4.35 L (4.50-10.00) X 10*3/uL RBC 4.08 L (4.10-5.20) X 10*6/uL Hgb 11.7 L (12.0-15.0) g/dL MCHC 30.1 L (32.0-37.0) g/dL Eosinophils # 0 L (0.04-0.35) X 10*3/uL Glucose 128 H (70-110) mg/dL Total Protein 5.7 L (6.2-8.2) g/dL Albumin 3.50 L (3.80-4.90) g/dL Albumin/Globulin Ratio 1.59 L (1.60-3.17) g/dL Microbiology - Last 24 Hours (Table) 09/21/20 22:22 Blood Culture - Preliminary Blood No Growth after 24 hours 09/21/20 22:31 Blood Culture - Preliminary Blood No Growth after 24 hours Assessment and Plan Assessment: 1. Abdominal pain; perforated viscus - CT of the abdomen is reviewed by surgery and patient is to be kept nothing by mouth with IV antibiotics; patient scheduled for OR - Patient is started on IV Zosyn and IV fluid hydration 2. COPD/asthma; not in exacerbation; continue with home dose of Xyzal 5 mg daily; albuterol inhaler when necessary 3. Hypothyroidism; levothyroxin 137 MCG daily 4. Rheumatoid arthritis; Dupixent as out patient DVT prophylaxis; SCDs CODE STATUS; full code
[2020-09-24 14:52] VITALS: BP 94/59; PULSE 45; RESP 16; TEMP 97.8
--- NOTE | 2020-09-24 16:05 | P.DS ---
Providers Date of admission: 09/21/20 23:42 Expected date of discharge: 09/24/20 Attending physician: Alisha Villalobos Consults: 09/21/20 23:45 Consult Physician Routine Consulting Provider: Layton Fung Consult Reason/Comments: Medical management Do you want consulting provider notified?: Yes Primary care physician: Layton Fung - Discharge Diagnosis(es) (1) Gastrojejunal ulcer with perforation Current Visit: Yes Status: Acute (2) Tobacco abuse counseling Current Visit: Yes Status: Acute (3) Tobacco abuse Current Visit: Yes Status: Acute (4) S/P gastric bypass Current Visit: Yes Status: Acute (5) Peritoneal adhesions Current Visit: Yes Status: Acute Hospital Course: CHIEF COMPLAINT: Perforated gastrojejunal ulcer HISTORY OF PRESENT ILLNESS: The patient is a 60-year-old female status post exploration and repair of gastrojejunal ulcer, 09/22/2020. She is tolerating pureed diet. Her abdominal pain is resolved.. ROS: No reports of nausea and vomiting. No bowel movements. No fevers or chills. No new chest pain. No productive sputum PHYSICAL EXAM: VITAL SIGNS: Reviewed CONSTITUTIONAL: Well developed and in no acute distress. EYES: Conjuctivae without sclera icterus. Extraocular movements grossly intact. HEAD, EARS, NOSE, THROAT: Moist buccal mucosa. Head is atraumatic, normocephalic. Hears conversational speech. No nasal drainage. NECK: Supple. No visible thyroidomegaly. RESPIRATORY: Non-labored respirations and equal bilateral excursions. CARDIOVASCULAR: Palpable 2+ radial pulses. ABDOMEN: Incisions clean dry and intact. Conor-Cruz drain serous. MUSCULOSKELETAL: No gross deformity of the lower extremities noted. No clubbing. No cyanosis. SKIN: Good skin turgor. Well perfused. NEUROLOGIC: Cranial nerves II through XII grossly intact. No focal or lateralizing signs. PSYCH: Appropriate affect. Alert and oriented to person, place and time. CLINICAL LABS: No new labs ASSESSMENT: 1. Acute perforated gastrojejunal ulcer 2. Tobacco use disorder 3. History of gastric bypass 4. Peritoneal adhesion PLAN: 1. Strict tobacco cessation and counseling performed for over 3 minutes 2. BARB drain continues upon discharge 3. Continue carafate and omeprazole at least 4 weeks 4. Medical reconciliation performed. 5. No further antibiotics following discharge. Patient Condition at Discharge: Good Plan - Discharge Summary Discharge Rx Participant: Yes New Discharge Prescriptions: New Sucralfate [Carafate] 1 gm PO BID #60 tablet Omeprazole 40 mg PO DAILY #90 capsule.dr Anderson Potassium Chloride [Klor-Con M10] 10 meq PO DAILY Furosemide 40 mg PO DAILY Levocetirizine Dihydrochloride [Xyzal] 5 mg PO DAILY Mometasone Furoate [Nasonex Nasal [place]] 2 spr EA NOSTRIL DAILY PRN PRN Reason: Allergy Symptoms Dupilumab [Dupixent Syringe] 300 mg SQ Q14D Simethicone [Gas-X] 125 mg PO AC-TID PRN #20 capsule PRN Reason: Abdominal Distention Levothyroxine Sodium [Synthroid] 137 mcg PO DAILY Discontinued Multivitamins, Thera [Multivitamin (formulary)] 1 tab PO DAILY Vitamin A [Vitamin A (8,000 Units = 2,400 MCG)] 2,400 mcg PO DAILY Cholecalciferol [Vitamin D3 (25 Mcg = 1000 Iu)] 250 mcg PO DAILY Ferrous Sulfate [Iron (65 MG Elemental)] 325 mg PO DAILY Simethicone 40 mg/0.6 ml Drops [Mylicon Drops] 40 mg PO Q6HR PRN #30 ml PRN Reason: Abdominal Distention Calcium Carbonate [Calcium] 1,200 mg PO DAILY Discharge Medication List Furosemide 40 mg PO DAILY 09/29/13 [History] Levocetirizine Dihydrochloride [Xyzal] 5 mg PO DAILY 09/29/13 [History] Potassium Chloride [Klor-Con M10] 10 meq PO DAILY 09/29/13 [History] Mometasone Furoate [Nasonex Nasal [place]] 2 spr EA NOSTRIL DAILY PRN 07/09/17 [History] Dupilumab [Dupixent Syringe] 300 mg SQ Q14D 04/14/19 [History] Simethicone [Gas-X] 125 mg PO AC-TID PRN #20 capsule 06/12/20 [Rx] Levothyroxine Sodium [Synthroid] 137 mcg PO DAILY 09/21/20 [History] Omeprazole 40 mg PO DAILY #90 capsule. 09/24/20 [Rx] Sucralfate [Carafate] 1 gm PO BID #60 tablet 09/24/20 [Rx] Follow up Appointment(s)/Referral(s): Layton Fung MD [Primary Care Provider] - [facility] [place] [facility] - 09/27/20 Patient Instructions/Handouts: How to Stop Smoking (ED), Peptic Ulcer (DC), Diet for Stomach Ulcers and Gastritis (ED), Conor-Cruz Drain Care (DC), Lysis of Abdominal Adhesions (DC) Activity/Diet/Wound Care/Special Instructions: Empty and record BARB drain daily and as needed May shower after covering skin at BARB insertion site. Discharge Disposition: HOME SELF-CARE
--- NOTE | 2020-09-24 18:37 | P.PN ---
Subjective Progress Note Date: 09/24/20 Principal diagnosis: Pneumoperitoneum/perforated gastrojejunal anastomosis Status post laparoscopic exploration and repair of gastrojejunal perforation with lysis of adhesions 60 year-old female patient presents for evaluation of left upper abdominal pain. Patient states the pain has been present for the last few days, but worsened significantly today. Reports worsening pain with eating. Reports nausea no vomiting. Denies any diarrhea. States she did have two bowel movements today after taking a stool softener. Denies any fever or chills. Reports history of many abdominal surgeries including inguinal hernia, hiatal hernia, gastric bypass, and lysis of adhesions. Denies any hematochezia or melena. Patient denies any recent rash, cough, shortness of breath, chest pain, back pain, numbness, tingling, dizziness, weakness, hematuria, dysuria, urinary urgency, urinary frequency, headache, visual changes, or any other complaints. CT abdomen and pelvis was obtained, and results were called in by the radiologist to reported possible perforated viscus. Case with Dr. Brunson who did review CT scans and came in to evaluate the patient. She will be admitted with antibiotics. She is NPO. 09/23/2020 Patient is seen and evaluated in room at bedside; patient is status post laparoscopic exploration and repair of gastrojejunal perforation with lysis of adhesions Antibiotic management per general surgery including Zosyn and antifungal for yeast initiated; patient is cleared to resume home medications; continue with Ca rafate and omeprazole Patient will be started on diet once cleared by surgery 09/24/2020 Patient is seen and evaluated; sitting up in bed; has been cleared for. Diet and has been tolerating okay; upper GI series has been unremarkable without any extravasation; patient has been treated empirically with IV Zosyn Possible plan for discharge home today Objective - Vital Signs Vital signs: Vital Signs Temp 97.3 F L 09/24/20 07:51 Pulse 67 09/24/20 07:51 Resp 19 09/24/20 07:51 BP 97/61 09/24/20 07:51 Pulse Ox 95 09/24/20 07:51 Intake & Output 09/23/20 09/24/20 09/24/20 18:59 06:59 18:59 Intake Total 150 150 Output Total 40 50 Balance 110 -50 150 Intake: Intake, IV Titration 150 150 Amount Fluconazole in NaCl,Iso- 50 50 Osm 100 mg In Saline 1 50ml.bag @ 50 mls/hr IVPB DAILY [facility] Rx#:[id number] Piperacillin-Tazobactam 3 100 100 .375 gm In Sodium Chloride 0.9% 100 ml @ 25 mls/hr IVPB Q8H [facility] Rx#: [id number] Output: Drainage 40 50 Abdomen 40 50 Other: # Voids 3 - Exam CONSTITUTIONAL: Well developed and in no acute distress. EYES: Conjuctivae without sclera icterus. Extraocular movements grossly intact. HEAD, EARS, NOSE, THROAT: Moist buccal mucosa. Head is atraumatic, normocephalic. Hears conversational speech. No nasal drainage. NECK: Supple. No visible thyroidomegaly. RESPIRATORY: Non-labored respirations and equal bilateral excursions. CARDIOVASCULAR: Palpable 2+ radial pulses. ABDOMEN: Incisions clean dry and intact. Soft. No peritonitis. Minimal tenderness left upper quadrant. Conor-Cruz drain serous. MUSCULOSKELETAL: No gross deformity of the lower extremities noted. No clubbing. No cyanosis. SKIN: Good skin turgor. Well perfused. NEUROLOGIC: Cranial nerves II through XII grossly intact. No focal or lateralizing signs. PSYCH: Appropriate affect. Alert and oriented to person, place and time. - Labs CBC & Chem 7: 09/23/20 07:22 09/23/20 07:22 Labs: Microbiology - Last 24 Hours (Table) 09/21/20 22:22 Blood Culture - Preliminary Blood No Growth after 48 hours 09/21/20 22:31 Blood Culture - Preliminary Blood No Growth after 48 hours Assessment and Plan Assessment: 1. Abdominal pain; perforated viscus - CT of the abdomen is reviewed by surgery and patient is to be kept nothing by mouth with IV antibiotics; patient scheduled for OR - Patient is started on IV Zosyn and IV fluid hydration 2. COPD/asthma; not in exacerbation; continue with home dose of Xyzal 5 mg daily; albuterol inhaler when necessary 3. Hypothyroidism; levothyroxin 137 MCG daily 4. Rheumatoid arthritis; Dupixent as out patient DVT prophylaxis; SCDs CODE STATUS; full code
[2020-10-02] MEDS ORDERED: DUPILUMAB 300 MG/2 ML SQ SCH (09:00)
== END 2020-09-24 17:00 | disposition home or self-care (01) | DRG 326 ==
LOC: EC 19:35 → 4SSUR 23:42
PROVIDERS: ADMIT Surgery Plastic and Reconstructive Surgery; ATTEND Surgery Plastic and Reconstructive Surgery
PROC: 0DNU4ZZ Release Omentum, Percutaneous Endoscopic Approach (ICD-10-PCS; 2020-09-22)
PROC: 0DQA4ZZ Repair Jejunum, Percutaneous Endoscopic Approach (ICD-10-PCS; 2020-09-22)
PROC: 0DJ08ZZ Inspection of Upper Intestinal Tract, Via Natural or Artificial Opening Endoscopic (ICD-10-PCS; 2020-09-22)
PROC: 3E1M38Z Irrigation of Peritoneal Cavity using Irrigating Substance, Percutaneous Approach (ICD-10-PCS; 2020-09-22)
PROC: 8E0W4CZ Robotic Assisted Procedure of Trunk Region, Percutaneous Endoscopic Approach (ICD-10-PCS; 2020-09-22)
PROC: 0DQ64ZZ Repair Stomach, Percutaneous Endoscopic Approach (ICD-10-PCS; principal; 2020-09-22 07:30)
DX: K95.89 Other complications of other bariatric procedure (principal); K28.1 Acute gastrojejunal ulcer with perforation; R18.8 Other ascites; J44.9 Chronic obstructive pulmonary disease, unspecified; M06.9 Rheumatoid arthritis, unspecified; Z96.653 Presence of artificial knee joint, bilateral; Z98.84 Bariatric surgery status; K21.9 Gastro-esophageal reflux disease without esophagitis; F41.9 Anxiety disorder, unspecified; E03.9 Hypothyroidism, unspecified; Z79.890 Hormone replacement therapy; F17.200 Nicotine dependence, unspecified, uncomplicated; Y83.2 Surgical operation with anastomosis, bypass or graft as the cause of abnormal reaction of the patient, or of later complication, without mention of misadventure at the time of the procedure; K66.0 Peritoneal adhesions (postprocedural) (postinfection); K66.8 Other specified disorders of peritoneum; Z79.899 Other long term (current) drug therapy; Z90.710 Acquired absence of both cervix and uterus; Z98.1 Arthrodesis status
CPT/HCPCS: 36415; 74177; 74240; 80048; 80053; 80307; 81001; 83605; 83690; 85025; 87040; 96374; 96375; 96376; 99285

== ENCOUNTER → 2021-08-15 | Outpatient (CLI) | payer MEDICARE ==
--- NOTE | 2021-08-15 16:45 | BD ---
EXAMINATION TYPE: Axial Bone Density DATE OF EXAM: 08/15/2021 COMPARISON: NEW TO [facility] FOR A DEXA STUDY CLINICAL HISTORY: 61 years year old Female. ICD-10 CODE: Z13.820 SCREENING FOR OSTEOPOROSIS Height: 64.5 Weight: 149 FRAX RISK QUESTIONS: Glucocorticoids (More than 3mos): YES (Ex: prednisone, prednisolone, methylprednisolone, dexamethasone, and hydrocortisone). History of Fracture in Adulthood: YES RISK FACTORS HISTORY OF: Hip Fracture (1996): YES, 1996 Surgery to Spine L4 AND L5 FUSION, AND LT HIP REPLACEMENT Family History of Osteoporosis: YES, FATHER WITH HIP FX Diet low in dairy products/other sources of calcium: YES Postmenopausal woman: YES, AT AGE 51 YRS OLD Take estrogen and/or progesterone medications: YES, IN THE PAST FOR 3 YRS Hyperparathyroidism: NO Adrenal Insufficiency: NO MEDICATIONS: Prednisone or other steroids: YES, FOR NASAL POLYPS Thyroid Medications: YES, SYNTHROID FOR 10 YRS Additional Medications: VIT D, REFLUX MEDS, Additional History: BILAT TKRS, LT HIP REPLACEMENT, L/S L4 AND L5, FUSION, ARTHRITIS EXAM MEASUREMENTS: Bone mineral densitometry was performed using the [employer] System. FUSION, L/S NOT SCANNED Bone mineral density about the R hip (g/cm2): 0.748 T Score values are as follows: -----R Neck: -2.2 -----R Total: -2.1 Bone mineral density NEW Bone mineral density about the R Wrist (g/cm2): 0.486 T Score values are as follows: -----Dist. R+U: -3.1 -----Prox. R+U: -2.0 -----Radius total: -3.0 Bone mineral density NEW FRAX%s: The graph provided illustrates a 46.6% chance for a major osteoporotic fx and a 5.4% chance f or the hips probability for fx in 10 years time. IMPRESSION: Osteoporosis (T Score less than -2.5). There is increased fracture risk and therapy is usually indicated based on age. Re-Screen 1-2 years. NOTE: T-SCORE=SD OF THE YOUNG ADULT MEAN.
--- NOTE | 2021-08-16 07:58 | MM ---
Reason for Exam: Screening (asymptomatic). Last mammogram was performed 1 year(s) and 10 month(s) ago. Patient History: Menarche at age 14. First Full-Term at age 27. Hysterectomy at age 47. Postmenopausal. Estrogen, starting at age 54 for 5 years. Risk Values: Khadra 5 year model risk: 1.6%. NCI Lifetime model risk: 8.1%. Prior Study Comparison: 12/04/2015 Bilateral Screening Mammogram, [facility]. 08/12/2017 Bilateral Screening Mammogram, [facility]. 10/06/2019 Bilateral Screening Mammogram, [facility]. Tissue Density: The breast tissue is heterogeneously dense. This may lower the sensitivity of mammography. Findings: Analyzed By CAD. There is no suspicious group of microcalcifications or new suspicious mass in either breast. Overall Assessment: Negative, BI-RAD 1 Management: Screening Mammogram of both breasts in 1 year. A clinical breast exam by your physician is recommended on an annual basis and results should be correlated with mammographic findings. Electronically signed and approved by: Esteban Umaña M.D. Radiologis
== END | disposition home or self-care (01) ==
LOC: RADMAMWWP 06:54
PROVIDERS: ATTEND Family Medicine
DX: Z12.31 Encounter for screening mammogram for malignant neoplasm of breast (principal); Z78.0 Asymptomatic menopausal state
CPT/HCPCS: 77067; 77080

== ENCOUNTER → 2023-01-07 | Outpatient (CLI) | payer MEDICARE ==
[2023-01-07 13:30] LABS: Basophils # (A) 0.08 X 10*3/uL (0.00-0.10); Basophils % (A) 1.4 %; Eosinophils # (A) 0.16 X 10*3/uL (0.04-0.35); Eosinophils % (A) 2.8 %; HCT 40.7 % (37.2-46.3); HGB 13.5 g/dL (12.0-15.0); Lymphocytes # (A) 2.35 X 10*3/uL (0.90-5.00); MCH 30.2 pg (27.0-32.0); MCHC 33.2 g/dL (32.0-37.0); MCV 91.1 FL (80.0-97.0); Mean Platelet Volume 9.8 FL (9.5-12.2); Monocytes # (A) 0.41 X 10*3/uL (0.20-1.00); Monocytes % (A) 7.2 %; NRBC Per 100 WBC 0 X 10*3/uL (0.00-0.01); Neutrophils # (A) 2.72 X 10*3/uL (1.80-7.70); Neutrophils % (A) 47.4 %; Platelet Count 380 X 10*3/uL (140-440); RBC 4.47 X 10*6/uL (4.10-5.20); RDW 13.1 % (11.5-14.5); WBC 5.73 X 10*3/uL (4.50-10.00)
[2023-01-07 14:00] LABS: ALT 24 U/L (8-44); AST 23 U/L (13-35); Albumin 4.4 g/dL (3.8-4.9); Alkaline Phosphatase 68 U/L (41-126); BUN/Creat Ratio 9.57 Ratio (12.00-20.00); Blood Urea Nitrogen 6.7 mg/dL (9.0-27.0); Calcium 9.7 mg/dL (8.7-10.3); Carbon Dioxide 29.9 mmol/L (21.6-31.8); Chloride 99 mmol/L (96-109); Chol/HDL Ratio 3.18 Ratio; Globulin 2.1 g/dL (1.6-3.3); Glucose 98 mg/dL (70-110); LDL Cholesterol,Calculated 127.3 mg/dL (0.0-131.0); Potassium 4.5 mmol/L (3.5-5.5); Sodium 140 mmol/L (135-145); Total Bilirubin 0.6 mg/dL (0.3-1.2); Total Protein 6.5 g/dL (6.2-8.2); VLDL Calculation 13.32 mg/dL (5.00-40.00)
== END | disposition home or self-care (01) ==
LOC: LABWHC1 06:52
PROVIDERS: ATTEND Family Medicine
DX: Z13.1 Encounter for screening for diabetes mellitus (principal); Z13.220 Encounter for screening for lipoid disorders; E03.9 Hypothyroidism, unspecified; R53.83 Other fatigue
CPT/HCPCS: 36415; 80053; 80061; 83036; 84439; 84443; 84481; 85025

== ENCOUNTER 2023-07-09 06:14 | Day surgery (SDC) | payer MEDICARE ==
[~2023-07-09 06:14] MED LIST changes: -DEXAMETHASONE SOD PHOSPHATE 10 MG/ML 1 ML VIAL IM STA; +LIDOCAINE 1% (10MG/ML) FOR IV START INTRADERMA PRN
[2023-07-09] MEDS: LACTATED RINGERS 1,000 ML IV SCH (06:41)
[2023-07-09 06:59] LABS: Glucose,Whole Blood 81 mg/dL (70-110)
[2023-07-09 07:00] VITALS: TEMP 98
[2023-07-09] MEDS: MIDAZOLAM 2 MG/2 ML VIAL IVP ONE (07:00)
[2023-07-09] MEDS ORDERED: PROPOFOL 10 MG/ML 20 ML VIAL IV ONE (07:35)
--- NOTE | 2023-07-09 07:53 | P.PCN ---
Date of Procedure: 07/09/23 Procedure(s) Performed: Brief history: Patient is a pleasant 64-year-old white female scheduled for an elective upper endoscopy as well as colonoscopy as a part of evaluation of epigastric pain/GERD and screening for colon cancer Procedure performed: Esophagogastroduodenoscopy biopsy Colonoscopy with snare polypectomy Preoperative diagnosis: GERD/epigastric pain/screening for colon cancer Anesthesia: MAC Procedure: After informed consent was obtained from the patient was brought into the endoscopy unit and IV sedation was administered by anesthesia under continuous monitoring. Initially upper endoscopy was done. The Olympus GF 160 video endoscope was inserted inserted into the mouth and esophagus intubated without any difficulty and was gradually advanced into the stomach . There was evidence of gastric bypass surgery with Tressa-en-Y anastomosis and anastomosis appeared normal. The afferent and efferent loops appeared normal. The scope was then withdrawn into the stomach and there was mild inflammation of the gastric pouch which was biopsied. Small hiatal hernia noted. The GE junction was located at 40 cm to the incisors. It appeared regular with no erythema erosions or ulcerations. Rest of the esophagus appeared normal. These were done from the distal esophagus. Patient tolerated the procedure well. At this time the patient continued to remain sedation. Initial digital rectal examination was normal. Olympus CF 160 video colonoscope was then inserted into the rectum and gradually advanced to the cecum without any difficulty. Careful examination was performed as the scope was gradually being withdrawn. The prep was excellent. The cecum, ascending colon, appeared normal. The transverse colon there was a 1 cm polyp removed by snare polypectomy. In the descending colon there were 2 polyps measuring 3 mm and 5 mm in size both of which were removed by snare polypectomy. Rest of the transverse colon, descending colon, sigmoid colon and rectum appeared normal. Retroflexion was performed in the rectum and no lesions were noted. Patient tolerated the procedure well. Impression: 1. Upper endoscopy revealed gastric pouch with Tressa-en-Y anastomosis, mild gastritis of the gastric pouch and small hiatal hernia 2. Colonoscopy revealed a) 1 cm transverse colon polyp status post polypectomy b) 3 mm and 5 mm descending colon polyp s/p polypectomy Recommendations: Findings of this examination were discussed with the patient as well as her family. She was advised to follow-up with the biopsy results. If the biopsy reveals adenoma she can have repeat colonoscopy in 3 years.
[2023-07-09 08:47] VITALS: BP 118/75; PULSE 55; RESP 18
== END 2023-07-09 08:27 | disposition home or self-care (01) ==
LOC: ORWHC2ENDO 06:14
PROVIDERS: ATTEND Internal Medicine Gastroenterology
DX: Z12.11 Encounter for screening for malignant neoplasm of colon (principal); D12.3 Benign neoplasm of transverse colon; D12.4 Benign neoplasm of descending colon; K21.9 Gastro-esophageal reflux disease without esophagitis; K44.9 Diaphragmatic hernia without obstruction or gangrene; I47.19 Other supraventricular tachycardia; J44.9 Chronic obstructive pulmonary disease, unspecified; E11.9 Type 2 diabetes mellitus without complications; Z79.84 Long term (current) use of oral hypoglycemic drugs; Z79.51 Long term (current) use of inhaled steroids; Z79.899 Other long term (current) drug therapy; Z88.6 Allergy status to analgesic agent; Z88.8 Allergy status to other drugs, medicaments and biological substances
CPT/HCPCS: 88305; 45385; 43239; J2250; J2704

== ENCOUNTER → 2023-08-12 | Outpatient (CLI) | payer MEDICARE ==
--- NOTE | 2023-08-13 14:33 | MM ---
Reason for Exam: Screening (asymptomatic). Last mammogram was performed 2 year(s) and 0 month(s) ago. Patient History: Menarche at age 14. First Full-Term at age 27. Hysterectomy at age 47. Postmenopausal. Estrogen, starting at age 54 for 5 years. Risk Values: Khadra 5 year model risk: 1.7%. NCI Lifetime model risk: 7.7%. Prior Study Comparison: 12/04/2015 Bilateral Screening Mammogram, [facility]. 08/12/2017 Bilateral Screening Mammogram, [facility]. 10/06/2019 Bilateral Screening Mammogram, [facility]. 08/15/2021 Bilateral MG screening mammo w CAD, [facility]. Tissue Density: The breasts are almost entirely fatty. Findings: Analyzed By CAD. Right breast: There is no suspicious group of microcalcifications or new suspicious mass. Left breast: There is no suspicious group of microcalcifications or new suspicious mass. Overall Assessment: Negative, BI-RAD 1 Management: Screening Mammogram of both breasts in [address] [facility] will attempt to contact patient to return for supplemental views and ultrasound if indicated. Patient should continue monthly self-breast exams. A clinical breast exam by your physician is recommended on an annual basis. This exam should not preclude additional follow-up of suspicious palpable abnormalities. Note on Khadra scores and lifetime risk: 1. A Khadra score greater than 3% is considered moderate risk. If this is the case, consider specialist referral to assess eligibility for a risk reducing agent. 2. If overall lifetime risk for the development of breast cancer is 20% or higher, the patient may qualify for future screening with alternating mammogram and breast MRI. Electronically signed and approved by: Goyo Joseph DO
== END | disposition home or self-care (01) ==
LOC: RADMAMWWP 07:12
PROVIDERS: ATTEND Family Medicine
DX: Z12.31 Encounter for screening mammogram for malignant neoplasm of breast (principal); Z78.0 Asymptomatic menopausal state
CPT/HCPCS: 77063; 77067